=== PATIENT | female | born 1975 | race Caucasian/White ===

== ENCOUNTER 2024-04-27 11:28 | Emergency (ER) | payer OTHER, SELFPAY ==
--- OUTSIDE RECORDS SUMMARY | 2024-04-27 11:30 | XMS_ITS | Continuity of Care Document ---
Author Name NwHIN User [facility] Address Unknown Organization Unknown Address Unknown Encounters FILTER APPLIED:Only known Encounters with Admission Date within the last 5 years Encounter Location Admission Discharge Billing Code List Of First Job Ideas Lia ryan [facility]
[2024-04-27 11:37] VITALS: BP 112/70; PULSE 91; RESP 18; TEMP 36.3; O2SAT 98; BMI 23.6
--- NOTE | 2024-04-27 11:51 | ED.BACK ---
HPI - Back Pain/Injury General Time Seen by Provider: 11:51 Date Seen: 04/27/24 Chief Complaint: Back Injury/Pain Stated Complaint: back pain since sunday Time Seen by Provider: 04/27/24 11:51 Source: patient, RN notes reviewed and old records reviewed Mode of arrival: ambulatory Limitations: no limitations History of Present Illness HPI Narrative: Antonia is a very a pleasant 49-year-old female with history of a depression anxiety, remote history of heavy alcohol use and sober for 6 years who comes to the emergency room for back and leg pain. 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 She states that that radiation has actually improved and has does not go past her ankle but her back pain is such that she is really struggling. She notes that she can only lay in 1 position in her bed otherwise pain is significant. She notes that sitting is probably the worst for her. She has not had loss of bowel or bladder control. She feels like her left leg is weak. However, she is able to move her toes without difficulty and she does not feel like she is dragging her leg. Pain radiates from the left side of her low back through her buttock and around to the front of her left tony. Movement greatly increases her discomfort. She has has not seen anybody for this injury and is not currently taking any narcotics. Denies a history of narcotic addiction. Related Data Home Medications ?Medication ?Instructions ?Recorded ?Confirmed bupropion HCl 100 mg tablet 100 mg PO DAILY 04/27/24 04/27/24 clonazepam 0.5 mg tablet 0.5 mg PO DAILY 04/27/24 04/27/24 seraquel 200 mg PO HS 04/27/24 04/27/24 trazodone 100 mg tablet 100 mg PO DAILY 04/27/24 04/27/24 veltrex PO DAILY 04/27/24 Previous Rx's ?Medication ?Instructions ?Recorded hydrocodone 5 mg-acetaminophen 325 1 tab PO Q6H PRN pain #10 tabs 04/27/24 mg tablet methylprednisolone 4 mg tablets in See Rx Instructions PO .COMPLEX 04/27/24 a dose pack (Medrol (Yang)) #21 ea Allergies Allergy/AdvReac Type Severity Reaction Status Date / Time No Known Drug Allergies Allergy Verified 04/27/24 11:43 Review of Systems Status of ROS: Reports: 10 or more systems reviewed and unremarkable except as noted in History and below Const: Denies: fever or chills ENMT: Denies: neck pain or nasal congestion Cardio: Denies: chest pain or shortness of breath with exertion Resp: Denies: shortness of breath GI: Denies: abdominal pain or vomiting Musculo: Denies: neck pain Psych: Reports: anxiety PFSH PFSH Social History Smoking Status: Never smoker Exam Narrative: Exam Narrative: Alert and oriented. Somewhat tremulous. EOM is full and pupils equal round reactive. Head is atraumatic. Heart with a regular rate and rhythm and lungs are clear bilaterally. Examination of the back shows tenderness on the left paraspinous musculature at approximately L follow are 5. There is another area of tenderness over the left posterior superior iliac spine and with palpation in the left buttock. Patient has appropriate strength in the left lower extremity. She is able to stand on her tiptoes able to stand on her heels although it greatly increases her discomfort. No unusual swelling or rashes noted. Patient was able to get up from sitting position to standing position. Const: Vital Signs, click to edit/add: Vital Signs - 24 hr 04/27/24 11:37 Temperature 97.4 F L Pulse Rate [Pulse Oximeter] 91 Respiratory Rate 18 Blood Pressure [Ri ght Upper Arm] 112/70 Pulse Oximetry 98 Oxygen Delivery Me thod Room Air Documenting provider has reviewed patient's vital signs: yes Course Course ED Course: Differential diagnosis includes but is not limited to radiculitis, radiculopathy, disc protrusion, muscle strain, compression fracture. No reports of any trauma to this area. However pain has now been intermittent and ongoing for 12 days. Will obtain lumbar spine x-ray, use morphine 8 mg and Toradol 30 mg IM for pain control. Will also start patient on prednisone for anti-inflammatory effect. Reevaluation(s) Reevaluation #1: Patient noted to be feeling much improved after medications. Vital Signs Vital signs: Initial Vital Signs Temperature 97.4 F L 04/27/24 11:37 Temperature Source Temporal Artery Scan 04/27/24 11:37 Pulse Rate 91 04/27/24 11:37 Respiratory Rate 18 04/27/24 11:37 Blood Pressure 112/70 04/27/24 11:37 Blood Pressure Mean 84 04/27/24 11:37 Blood Pressure Position Sitting 04/27/24 11:37 Pulse Oximetry 98 04/27/24 11:37 Oxygen Delivery Method Room Air 04/27/24 11:37 Vital Signs Temperature 97.4 F L 04/27/24 11:37 Pulse Rate 91 04/27/24 11:37 Respiratory Rate 18 04/27/24 11:37 Blood Pressure 112/70 04/27/24 11:37 Pulse Oximetry 98 04/27/24 11:37 Oxygen Delivery Method Room Air 04/27/24 11:37 Temperature 97.4 F L 04/27/24 11:37 Pulse Rate 91 04/27/24 11:37 Respiratory Rate 18 04/27/24 11:37 Blood Pressure 112/70 04/27/24 11:37 Pulse Oximetry 98 04/27/24 11:37 Oxygen Delivery Method Room Air 04/27/24 11:37 Medications Administered Medications: Discontinued Medications Generic Name Dose Route Start Last Admin Trade Name Ebenezerq PRN Reason Stop Dose Admin Ketorolac Tromethamine 30 mg 04/27/24 12:08 04/27/24 12:17 Ketorolac 30 Mg/Ml Inj IM 04/27/24 12:09 30 mg ONCE ONE Administration Morphine Sulfate 8 mg 04/27/24 12:08 04/27/24 12:17 Morphine 4 Mg/Ml Inj IM 04/27/24 12:09 8 mg ONCE ONE Administration Prednisone 60 mg 04/27/24 12:08 04/27/24 12:46 Prednisone 20 Mg Tablet PO 04/27/24 12:09 60 mg ONCE ONE Administration MDM - Back Pain/Injury MDM Narrative Medical decision making narrative: 1. Low back pain with radiculitis-patient noted to have reassuring x-ray and improvement with medications. She received Toradol 30 mg IM, morphine 8 mg IM as well as prednisone 60 mg p.o.. She will be discharged home. She may use ibuprofen as needed for discomfort. For pain not relieved by ibuprofen I have given her 4 tablets of [place] 5/325 1-2 q.6 hours p.r.n. out of our [facility] meds machine. A further 10 tablets was sent to the pharmacy. Patient is to follow up with her primary MD. If she has persistent symptoms she may need MRI and/or injection. If her symptoms are improving but still present I would suggest physical therapy for strengthening of the lower back. Recommend ice and light activity. 2. Disposition-home at this time. Return for worsening symptoms especially loss of bowel or bladder control, worsening pain, weakness in the left lower extremity and as needed. Imaging Data Lumbar spine x-ray: Attestation: I have reviewed the pertinent imaging results. My impression: I do not note any acute fractures or other abnormality Radiologist's impression: The lumbar vertebral body heights are grossly maintained in satisfactory alignment with no evidence of displaced fracture. There is mild degenerative disc height loss and marginal osteophyte formation at the L2-L3, L3-L4 and L5-S1 levels. There is moderate facet arthrosis. The soft tissues are unremarkable. Impression: Mild early degenerative changes of the lumbar spine without evidence of displaced fracture. Discharge Plan Discharge Clinical Impression: Radiculitis Back pain Qualifiers: Back pain location: low back pain Chronicity: unspecified Back pain laterality: left Sciatica presence: without sciatica Qualified Code(s): M54.50 - Low back pain, unspecified Patient Disposition: Home, Self-Care Condition: Improved Additional Instructions: Continue steroids tomorrow-Medrol Dosepak will be sent to your pharmacy. Ibuprofen as needed for discomfort. I will provide you with a few tablets of Vicodin which is a combination medicine of hydrocodone on narcotic and Tylenol. Please use the sparingly. This was given through our [facility] meds machine. Do not use alcohol or drive with this medication as it is sedating. Do not combine with any other sedating or sleeping medications. Would recommend starting a stool softener as this has a tendency to cause constipation. 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 Follow-up with your primary MD for recheck. If you have ongoing pain you may need MRI. If pain is improving you may need physical therapy to strength in the low back. Return to the emergency room for loss of bowel or bladder control, increasing weakness and as needed. Prescriptions: New methylprednisolone [Medrol (Yang)] 4 mg tablets,dose pack See Rx Instructions .ROUTE .COMPLEX Qty: 21 0RF Rx Instructions: for 6 days hydrocodone-acetaminophen 5-325 mg tablet 1 tab PO Q6H PRN (Reason: pain) Qty: 10 0RF Rx Instructions: 1-2 tablets every 6 hours as needed for discomfort. No Action bupropion HCl 100 mg tablet 100 mg PO DAILY seraquel 200 mg PO HS trazodone 100 mg tablet 100 mg PO DAILY veltrex PO DAILY clonazepam 0.5 mg tablet 0.5 mg PO DAILY Follow Up/Referrals: Provider,Not a Local [Primary Care Provider] - Stand Alone Forms: [facility] Info Instructions
--- NOTE | 2024-04-27 12:08 | CRLHL7_ITS ---
For Patients: As a result of the Cures Act, medical imaging exams and procedure reports are released immediately into your electronic medical record. You may view this report before your referring provider. If you have questions, please contact your health care provider. Indication: L4 radiculitis Comparison: None available. Technique: AP and lateral views lumbar spine were obtained. Findings: The lumbar vertebral body heights are grossly maintained in satisfactory alignment with no evidence of displaced fracture. There is mild degenerative disc height loss and marginal osteophyte formation at the L2-L3, L3-L4 and L5-S1 levels. There is moderate facet arthrosis. The soft tissues are unremarkable. Impression: Mild early degenerative changes of the lumbar spine without evidence of displaced fracture. Dictated by Michael Ponce MD @ 04/27/2024 2:07:19 PM (Electronically Signed)
[2024-04-27] MEDS: MORPHINE 4 MG/ML INJ 8 MG IM (12:17)
[2024-04-27] MEDS: KETOROLAC 30 MG/ML inj IM (12:17)
--- OUTSIDE RECORDS SUMMARY | 2024-04-27 12:25 | XMS_ITS | Continuity of Care Document ---
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
--- OUTSIDE RECORDS SUMMARY | 2024-04-27 12:25 | XMS_ITS | Clinical Summary ---
Author Organization [facility] Address [address] [place] [id number] Care Team Providers Care Image Consultant Name Role Phone Marah Bean MD Primary Care Provider [phone] Allergies Active Allergy Reactions Criticality Noted Date Comments Erythromycin Difficulty breathing Medium 02/09/2012 Had upper resp infection at the time Medications norgestimate-eth inyl estradiol (SPRINTEC, 28,) 0.25-35 mg-mcg Oral Tab Take 1 Tab by mouth Once Daily. Active escitalopram (LEXAPRO) 10 mg Oral Tab Take 10 mg by mouth Once Daily. Active CLONAZEPAM ORAL Take 0.5 Tabs by mouth as needed. Active HYDROcodone 5 mg-acetaminophen 325 mg (NORCO) 5-325 mg Oral Tab Take 1-2 Tabs by mouth every 4 (four) hours as needed for Pain (pain). 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 Oxygen Saturation 98% 02/22/2012 4:00 PM 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 Inhaled Oxygen Concentration - - Weight 76.9 kg (169 lb 9 oz) 02/22/2012 12:25 PM 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 Height 175.3 cm (5' 9) 02/22/2012 12:25 PM 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 Body Mass Index 25.04 02/22/2012 12:25 PM 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 Plan of Treatment Health Maintenance Due Date Last Done Comments Colonoscopy 1975 Hepatitis C Screening 1975 Lipid Screening 1975 Mammogram Screening 1975 Pap Smear 1975 Anxiety Screening (CHAPARRO-2) 1976 Depression Assessment (PHQ-2) 1976 Adult Tetanus Booster 02/15/2022 02/16/2012 , 04/03/2003, 04/03/2003 COVID-19 Vaccine (2023- season) 2023 Influenza Vaccine (#1) 2023 7, 01/17/2016, 12/30/2015, Additional history exists RSV Vaccines (1 - 1-dose 75+ series) 2050 Pneumococcal <65 Aged Out No longer e ligible based on patient's age to complete this topic Insurance NON CONTRACT GENERIC [employer] [id number] Care Teams Image Consultant Relationship Specialty Start Date End Date Marah Bean MD PCP - General 02/19/12
--- OUTSIDE RECORDS SUMMARY | 2024-04-27 12:25 | XMS_ITS | Clinical Summary ---
Author Organization [facility] Address [address] [place] [id number] Care Team Providers Care Bed Worker Name Role Phone Minnie Berry NP Unavailable [phone] Rafy Andrade MD Unavailable [phone] Perfecto Jain APRN FINISHED GARMENT INSPECTOR Unavailable [phone] Gavi Vega MD Unavailable + Laura Chong REFORMATORY ATTENDANT FINISHED GARMENT INSPECTOR Primary Care Prov ider Laura Chong APRN FINISHED GARMENT INSPECTOR Unavailable + Dat Zepeda MD Unavailable [phone] Radha Jeter MD Unavailable Michael Martines MD Unavailable Allergies Active Allergy Reactions Criticality Noted Date Comments Erythromycin Difficulty breathing 02/05/2007 Lamotrigine Rash Low 01/08/2017 Lurasidone Hcl 03/09/2020 Medications Multiple Vitamin (MULTI-VITAMIN) per tablet Take 1 tablet by mouth daily. Active CALCIUM-MAGNESI UM-VITAMIN D PO Take 1 tablet by mouth daily. Active B Complex TABS Take 1 tablet by mouth daily. Active clonazePAM (KLONOPIN) 0.5 MG tablet Take 0.5 mg by mouth 2 times daily as needed Active traZODone (DESYREL) 100 MG tablet 1 Active chlorhexidine (HIBICLENS) 4 % liquidIndicatio ns:Folliculitis Lather onto chest, back, and shoulders in shower and let rinse after 1 minute at least twice weekly. 118 mL 11 3 Active Additional Information Patient not taking.Reported on 08/29/2023 clindamycin (CLEOCIN T) 1 % external lotionIndicatio ns:Folliculitis Apply once daily to chest, back, and shoulders after showering 120 mL 11 3 Active Additional Information Patient not taking.Reported on 08/29/2023 apremilast (OTEZLA) 30 MG tabletIndicatio ns:Psoriasis vulgaris Take 1 tablet (30 mg) by mouth 2 times daily 60 tablet 11 3 Active buPROPion (WELLBUTRIN XL) 150 MG 24 hr tablet Take 150 mg by mouth every morning 3 Active QUEtiapine (SEROQUEL) 200 MG tablet Take 200 mg by mouth at bedtime 3 Active Apremilast (OTEZLA) 10 & 20 & 30 MG TBPKIndications :Psoriasis vulgaris Take 1 tablet in the morning on day 1, then take 1 tablet every 12 hours on day 2 through 14, according to the instructions on the packet. 55 each 4 Active apremilast (OTEZLA) 30 MG tabletIndicatio ns:Psoriasis vulgaris Take 1 tablet (30 mg) by mouth 2 times daily. 60 tablet 1 4 Active valACYclovir (VALTREX) 500 MG tabletIndicatio ns:Herpes simplex virus infection Take 1 tablet (500 mg) by mouth daily. 90 tablet 3 4 Active triamcinolone (KENALOG) 0.1 % external creamIndication s:Rash and nonspecific skin eruption APPLY TOPICALLY TO THE AFFECTED AREA OF RASH ON BACK OF NECK TWICE DAILY 45 g 1 4 Active fluocinolone (SYNALAR) 0.01 % solutionIndicat ions:Sebopsoria sis Apply 5-10 drops to posterior scalp at nighttime before bed as needed for rash 60 mL 1 4 Active ketoconazole (NIZORAL) 2 % external shampooIndicati ons:Sebopsorias is Lather onto the scalp in the shower and let sit for 2-3 minutes before rinsing at least 2x weekly 120 mL 11 4 Active Active Problems Problem Noted Date Diagnosed Date History of alcohol abuse 05/25/2021 Overview (05/25/2021): Sober since 2018. Acne rosacea 12/20/2018 Recurrent major depressive disorder, in partial remission 01/04/2017 Major depressive disorder, recurrent episode, mo derate 03/14/2016 CARDIOVASCULAR SCREENING; LDL GOAL LESS THAN 160 09/24/2009 Generalized anxiety disorder 02/24/2009 Overview (11/07/2016): Patient is followed by KAYLIE WINKLER for ongoing prescription of medicine. Med: Clonazepam Maximum use per month: 60 Expected duration: until she is able to establish care with psychiatry. Has needs assessment with [facility] October 2016 Narcotic agreement on file: NO Clinic visit recommended: Q 3-6 months Encounter for other general counseling or advice on contraception 03/23/2008 Overview (02/15/2015): Diagnosis updated by automated process. Provider to review and confirm. Essentail/Resting Tremor 07/16/2007 Generalized hyperhidrosis 09/01/2005 Resolved Problems Problem Noted Date Diagnosed Date Resolved Date Alcohol dependence 03/09/2020 2 Alcohol withdrawal 01/04/2017 2 Health [facility] 12/09/2014 10/01/2023 Overview (12/09/2014): *See Letters for [facility] Care Plan: My Access Plan Encounter for other general counseling or advice on contraception 01/23/2007 03/23/2008 Overview (02/15/2015): Diagnosis updated by automated process. Provider to review and confirm. Depressive disorder, not elsewhere classified 05/15/19 06 02/24/2009 Encounters Date Type Department Care Team Description 03/14/2024 MyC Medical Advice [facility] Internal Medicine [address] [id number] Valerie Montelongo from Last 3 Months Immunizations Name Administration Dates Next Due COVID-19 Bivalent 18+ (Moderna) 12/30/2021 COVID-19 MONOVALENT 12+ (Pfizer) 01/13/2021,04/16,04/14/2020 Flu, Unspecified 12/30/2015 HEPA 10/05/2003,04/07/2003 HepB 10/05/2003,05/21/2003,04/03/2003 Influenza (IIV3) PF 01/23/2019, 6,02/16/2012,2009 Influenza (prior to 2023) 02/16/2012,02/08/2011, 03/28/2010 Influenza Vaccine >6 months,quad, PF ,12/30/2021,01/04/2021,2019,02/14/2018,01/05/2017,01/14/2014 Influenza,INJ,MDCK,PF,Quad >6mo(Flucelvax) 01/23/2019 TD,PF 7+ (Tenivac) 04/03/2003 TDAP (Adacel,Boostrix) 04/17/2022 TDAP Vaccine (Boostrix) 02/16/2012 Family History Medical History Relation Comments Diabetes Brother 1 prediabetic Anxiety Disorder Brother 3 Depression Brother 3 Hypertension Brother 3 Anxiety Disorder Brother 4 on and off Depression Brother 4 on and off Diabetes Brother 4 pre-diabetic Hypertension Brother 4 currently contro lled Obesity Brother 4 Obesity Brother 5 dieting; not imp roving much Anxiety Disorder Father controlled Depression Father controlled Hypertension Father on medication Obesity Father improving with e xercise Substance Abuse Father Alcoholic; sober several years C.A.D. Maternal Grandfather Cancer Maternal Grandmother pancreas ca ncer Other Cancer Maternal Grandmother Pancreatic - Anxiety Disorder Mother still uncontrol led Depression Mother still uncontroll ed Anxiety Disorder Other aunt - now cont rolled Glaucoma No family hx of Macular Degeneration No family hx of Relation Status Comments Brother 1 Alive Brother 2 Alive Brother 3 Brother 4 Brother 5 Father Alive Maternal Grandfather Maternal Grandmother Mother Alive Other Paternal Grandfather Alive Paternal Grandmother Sister Alive Social History Tobacco Use Types Packs/Day Years Used Date Smoking Tobacco: Never Smokeless Tobacco: Never Tobacco Cessation:Counseling Given: Not Answered Alcohol Use Standard Drinks/Week Comments Not Currently 0 (1 standard drink = 0.6 oz pur e alcohol) sober since 2018 Social Connection and Isolation Panel [NHANES] A nswer Date Recorded Frequency of Communication with Friends and Fami ly Not on file 08/29/2023 How often do you get together with friends or re latives? Once a week 08/29/2023 Attends [employer] Services Not on file 08/28 Active Member of Clubs or Organizations Not on f ile 08/29/2023 Attends Club or Organization Meetings Not on isaias e 08/29/2023 Marital Status Not on file 08/29/2023 PHQ-2 Answer Date Recorded PHQ-2 Score 2 08/29/2023 [facility] [place] [facility] - Occupational Stress Questionnaire Answer Date Recorded Do you feel stress - tense, restless, nervous, or anxious, or unable to sleep at night because your mind is troubled all the time - these days? To some extent 08/29/2023 Exercise Vital Sign Answer Date Recorde d On average, how many days pe r week do you engage in moderate to strenuous exercise (like a brisk walk)? 3 days 08/29/2023 On average, how many minutes do you engage in exercise at this level? 30 min 08/29/2023 Adolescent Education Answer Date Record ed Getting School Help Needed Not on file 01/16 Food Insecurity Answer Date Recorded Within the past 12 months, d id you worry that your food would run out before you got money to buy more? No 08/29/2023 Within the past 12 months, d id the food you bought just not last and you didn t have money to get more? No 08/29/2023 Housing Stability Answer Date Recorded Do you have housing? (Peeweein g is defined as stable permanent housing and does not include staying ouside in a car, in a tent, in an abandoned building, in an overnight half-way, or couch-surfing.) Yes 08/29/2023 Are you worried about losing your housing? No 08/29/2023 Financial Resource Strain Answer Date R ecorded Within the past 12 months, h ave you or your family members you live with been unable to get utilities (heat, electricity) when it was really needed? No 08/29/2023 Transportation Needs Answer Date Record ed Within the past 12 months, h as lack of transportation kept you from medical appointments, getting your medicines, non-medical meetings or appointments, work, or from getting things that you need? No 08/29/2023 Interpersonal Safety Answer Date Record ed Do you feel physically and e motionally safe where you currently live? Yes 08/29/2023 Within the past 12 months, h ave you been hit, slapped, kicked or otherwise physically hurt by someone? No 08/29/2023 Within the past 12 months, h ave you been humiliated or emotionally abused in other ways by your partner or ex-partner? No 08/29/2023 Comments No Sex and Gender Information Value Date Recorded Sex Assigned at Female 03/08/2020 10:03 AM HOSPICE REGISTERED NURSE Legal Sex Female 3:03 AM HOSPICE REGISTERED NURSE Gender Identity Female 03/08/2020 10:03 AM HOSPICE REGISTERED NURSE Sexual Orientation Choose not to disclose 2019 10:03 AM HOSPICE REGISTERED NURSE Last Filed Vital Signs Vital Sign Reading Time Taken Comments Blood Pressure 108/65 08/29/2023 5:59 PM CDT Pulse 93 08/29/2023 5:59 PM CDT Temperature 36.7 C (98 F) 09/26/2022 9:35 AM CDT Respiratory Rate 16 08/29/2023 5:59 PM CDT Oxygen Saturation 97% 08/29/2023 5:59 PM CDT Inhaled Oxygen Concentration - - Weight 77.4 kg (170 lb 11.2 oz) 08/29/2023 5:59 PM CDT Height 175.3 cm (5' 9) 08/29/2023 5:59 PM CDT Body Mass Index 25.21 08/29/2023 5:59 PM CDT Plan of Treatment Health Maintenance Due Date Last Done Comments ANNUAL REVIEW OF HM ORDERS 1975 CT COLONOGRAPHY 1975 FIT 1975 FLEX SIG 1975 sDNA (Cologuard) 1975 ZOSTER IMMUNIZATION (1 of 2) 1994 COVID-19 Vaccine ( season) 2023 01/17/2023, 12/30/2021, 01/13/2021, Additional history exists INFLUENZA VACCINE (#1) 2023 , 12/30/2021, 01/04/2021, Additional history exists YEARLY PREVENTIVE VISIT 08/28/2024 08/29/19 24, 05/31/2022, 05/25/2021, Additional history exists HPV TEST 01/07/2025 01/08/2020, 03/11/2018 PAP 01/07/2025 01/08/2020, 02/15, 03/11/2018, Additional history exists MAMMO SCREENING 04/12/2025 04/12/2023, 03/17, 03/30/2021, Additional history exists LIPID 05/27/2026 05/27/2021, 12/16, 09/25/2019, Additional history exists GLUCOSE 08/29/2026 08/30/2023, 09/14, 09/05/2022, Additional history exists ADVANCE CARE PLANNING 08/28/2028 08/29/2023 COLONOSCOPY 05/17/2030 05/17/2020 COLORECTAL CANCER SCREENING 05/17/2030 DTAP/TDAP/TD IMMUNIZATION (3 - Td or Tdap) 04/17/2032 04/17/2022, 02/16/2012, 04/03/2003 RSV VACCINE (1 - 1-dose 75+ series) 2050 HEPATITIS B IMMUNIZATION Completed 004, 05/21/2003, 04/03/2003 HIV SCREENING Completed 05/28/2020, 10/15, 03/21/2016 HEPATITIS C SCREENING Completed 05/27/2021 HPV IMMUNIZATION Aged Out No longer e ligible based on patient's age to complete this topic MENINGITIS IMMUNIZATION Aged Out No l onger eligible based on patient's age to complete this topic Pneumococcal Vaccine: Pediatrics (0 to 5 Years) and At-Risk Patients (6 to 49 Years) Discontinued RSV MONOCLONAL ANTIBODY Aged Out No l onger eligible based on patient's age to complete this topic Procedures Procedure Name Priority Date/Time Associated Diagnosis Comments COMPREHENSIVE METABOLIC PANEL Routine 08/30/2023 8:42 AM CDT Routine history and physical examination of adult MA SCREENING BILATERAL W/ RODRIGO Routine 04/12/2023 1:09 PM HOSPICE REGISTERED NURSE Visit for screening mammogram HEPATITIS C SCREEN REFLEX TO HCV RNA QUANT AND GENOTYPE Routine 05/27/2021 8:17 AM HOSPICE REGISTERED NURSE Routine history and physical examination of adult LIPID REFLEX TO DIRECT LDL PANEL Routine 05/27/2021 8:17 AM HOSPICE REGISTERED NURSE Lipid screening HIV ANTIGEN ANTIBODY COMBO Routine 05/28/2020 4:03 PM HOSPICE REGISTERED NURSE Routine screening for STI (sexually transmitted infection) COLONOSCOPY - HIM SCAN 12:00 AM HOSPICE REGISTERED NURSE HPV HIGH RISK TYPES DNA CERVICAL Routine 01/08/2020 5:30 PM CDT Influenza vaccine needed PAP IMAGED THIN LAYER SCREEN Routine 01/08/2020 5:28 PM CDT Screening for cervical cancer from Last 3 Months or Most Recently Relevant to Health Maintenance Results * Comprehensive metabolic panel (BMP + Alb, Alk Phos, ALT, AST, Total. Bili, TP) (08/30/2023 8:42 AM CDT) Sodium 137 135 - 145 mmol/L 08/30/2023 9:14 AM CDT [facility] Comment:Reference intervals for this test were updated on 01/09/2023 to more accurately reflect our healthy population. There may be differences in the flagging of prior results with similar values performed with this method. Interpretation of those prior results can be made in the context of the updated reference intervals. Potassium 4.2 3.4 - 5.3 mmol/L 08/30/2023 9:14 AM CDT [facility] Carbon Dioxide (CO2) 22 22 - 29 mmol/L 08/30/2023 9:14 AM CDT [facility] Anion Gap 10 7 - 15 mmol/L 08/30/2023 9:14 AM CDT [facility] Urea Nitrogen 9.7 6.0 - 20.0 mg/dL 08/30/2023 9:14 AM CDT [facility] Creatinine 0.82 0.51 - 0.95 mg/dL 08/30/2023 9:14 AM CDT [facility] GFR Estimate 88 >60 mL/min/1. 73m2 08/30/2023 9:14 AM T [facility] Calcium 8.7 8.6 - 10.0 mg/dL 08/30/2023 9:14 AM T [facility] Chloride 105 98 - 107 mmol/L 08/30/2023 9:14 AM T [facility] Glucose 95 70 - 99 mg/dL 08/30/2023 9:14 AM T [facility] Alkaline Phosphatase 60 40 - 150 U/L 08/30/2023 9:14 AM T [facility] - [facility] Comment:Reference intervals for this test were updated on 02/27/2023 to more accurately reflect our healthy population. There may be differences in the flagging of prior results with similar values performed with this method. Interpretation of those prior results can be made in the context of the updated reference intervals. AST 13 0 - 45 U/L 08/30/2023 9:14 AM T [facility] Comment:Reference intervals for this test were updated on 09/25/2022 to more accurately reflect our healthy population. There may be differences in the flagging of prior results with similar values performed with this method. Interpretation of those prior results can be made in the context of the updated reference intervals. ALT 5 0 - 50 U/L 08/30/2023 9:14 AM T [facility] Comment:Reference intervals for this test were updated on 09/25/2022 to more accurately reflect our healthy population. There may be differences in the flagging of prior results with similar values performed with this method. Interpretation of those prior results can be made in the context of the updated reference intervals. Protein Total 7.1 6.4 - 8.3 g/dL 08/30/2023 9:14 AM T [facility] Albumin 4.2 3.5 - 5.2 g/dL 08/30/2023 9:14 AM T [facility] Bilirubin Total 0.2 <=1.2 mg/dL 08/30/2023 9:14 AM [facility] - [facility] Blood BLOOD SPECIMEN / Unknown Venipuncture / Unknown 08/30/2023 8:42 AM CDT 08/30/2023 8:42 AM CDT Laura Chong APRN, CNP LAB - BLOOD ORDERA BLES Final Result [facility] - [address] 1st Floor [place] [address] * MA Screening Bilateral w/ Rodrigo (04/12/2023 1:09 PM HOSPICE REGISTERED NURSE) Anatomical Region Laterality Modality Breast Bilateral Mammography Impressions 04/12/2023 6:42 PM HOSPICE REGISTERED NURSE IMPRESSION: ACR BI-RADS Category 1: Negative RECOMMENDED FOLLOW-UP: Annual routine screening mammogram The results and recommendations of this examination will be communicated to the patient. I have personally reviewed the examination and initial interpretation and I agree with the findings. Hailey Larry MD Narrative 04/12/2023 6:42 PM HOSPICE REGISTERED NURSE BILATERAL FULL FIELD DIGITAL SCREENING MAMMOGRAM WITH TOMOSYNTHESIS Performed on: 04/12/23 Compared to: 04/11/2022, 03/30/2021, 02/26/2020, and 01/23/2012 Technique: This study was evaluated with the assistance of Computer-Aided Detection. Breast Tomosynthesis was used in interpretation. Findings: The breasts are extremely dense, which lowers the sensitivity of mammography. There is no radiographic evidence of malignancy. Laura Chong APRN, CNP IMG MAMMOGRAPHY OR DERABLES Final Result * HCV Screen with Reflex (05/27/2021 8:17 AM HOSPICE REGISTERED NURSE) Hepatitis C Antibody Nonreactive Nonreactive 05/27/2021 2:46 PM HOSPICE REGISTERED NURSE [facility]PROT/EN DO Blood STRUCTURE OF RIGHT UPPER LIMB / Unknown Venipuncture / Unknown 05/27/2021 8:17 AM HOSPICE REGISTERED NURSE 05/27/2021 8:17 AM HOSPICE REGISTERED NURSE Narrative [facility] CORE/PROT/ENDO - 05/27/2021 2:46 PM HOSPICE REGISTERED NURSE Assay performance characteristics have not been established for newborns, infants, and children. us Laura Chong APRN [facility] LAB - BLOOD ORDERA BLES Final Result [facility]PROT/ENDO [facility]/Prot/Endo [address] [facility], [address] [address], [facility] [phone] * (ABNORMAL) Lipid panel reflex to direct LDL Fasting (05/27/2021 8:17 AM HOSPICE REGISTERED NURSE) Cholesterol 171 <200 mg/dL 05/27/2021 8:45 AM [facility] Triglycerides 89 <150 mg/dL 05/27/2021 8:45 AM [facility] Direct Measure HDL 47(L) >=50 mg/dL 05/27/2021 8:45 AM [facility] LDL Cholesterol Calculated 106(H) <=100 mg/dL 05/27/2021 8:45 AM [facility] Non HDL Cholesterol 124 <130 mg/dL 05/27/2021 8:45 AM [facility] Patient Fasting > 8hrs? Unknown 05/27/2021 8:45 AM [facility] Blood STRUCTURE OF RIGHT UPPER LIMB / Unknown Venipuncture / Unknown 05/27/2021 8:17 AM HOSPICE REGISTERED NURSE 05/27/2021 8:17 AM HOSPICE REGISTERED NURSE Narrative [facility] - 05/27/2021 8:45 AM HOSPICE REGISTERED NURSE Cholesterol Desirable: <200 mg/dL Triglycerides Normal: Less than 150 mg/dL Borderline High: 150-199 mg/dL High: 200-499 mg/dL Very High: Greater than or equal to 500 mg/dL Direct Measure HDL Female: Greater than or equal to 50 mg/dL Male: Greater than or equal to 40 mg/dL LDL Cholesterol Desirable: <100mg/dL Above Desirable: 100-129 mg/dL Borderline High: 130-159 mg/dL High: 160-189 mg/dL Very High: >= 190 mg/dL Non HDL Cholesterol Desirable: 130 mg/dL Above Desirable: 130-159 mg/dL Borderline High: 160-189 mg/dL High: 190-219 mg/dL Very High: Greater than or equal to 220 mg/dL us Laura Chong APRN, CNP LAB - BLOOD ORDERA BLES Final Result [facility] [address] [place] [address] * HIV Antigen Antibody Combo (05/28/2020 4:03 PM HOSPICE REGISTERED NURSE) HIV Antigen Antibody Combo Nonreactive NR^Nonrea ctive 05/30/2020 9:25 AM HOSPICE REGISTERED NURSE [facility] Comment:HIV-1 p24 Ag & HIV-1 /HIV-2 Ab Not Detected Blood specimen (specimen) 05/28/2020 4:03 PM HOSPICE REGISTERED NURSE 05/28/2020 4:05 PM HOSPICE REGISTERED NURSE us Laura Chong APRN [facility] LAB - BLOOD ORDERA BLES Final Result [facility] [address] [place] [address] * COLONOSCOPY - HIM SCAN (05/17/2020 12:00 AM HOSPICE REGISTERED NURSE) 05/17/2020 us Provider Outside PROCEDURES Final Result * HPV High Risk Types DNA Cervical (01/08/2020 5:30 PM CDT) HPV Source SurePath 01/12/2020 11:11 AM CDT [facility] HPV 16 DNA Negative NEG^Nega tive 01/14/2020 11:03 AM CDT [facility] HPV 18 DNA Negative NEG^Nega tive 01/14/2020 11:03 AM CDT [facility] Other HR HPV Negative NEG^Nega tive 01/14/2020 11:03 AM CDT [facility] Final Diagnosis This patient's sample is negative for HPV DNA. 01/14/2020 11:03 AM CDT [facility] Comment: This test was developed and its performance characteristics determined by the [facility], Molecular Diagnostics Laboratory. It has not been cleared or approved by the FDA. The laboratory is regulated under CLIA as qualified to perform high-complexity testing. This test is used for clinical purposes. It should not be regarded as investigational or for research. (Note) METHODOLOGY: The Konstantin paige 4800 system uses automated extraction, simultaneous amplification of HPV (L1 region) and beta-globin, followed by real time detection of fluorescent labeled HPV and beta globin using specific oligonucleotide probes . The test specifically identifies types HPV 16 DNA and HPV 18 DNA while concurrently detecting the rest of the high risk types (31, 33, 35, 39, 45, 51, 52, 56, 58, 59, 66 or 68). COMMENTS: This test is not intended for use as a screening device for women under age 30 with normal cervical cytology. Results should be correlated with cytologic and histologic findings. Close clinical followup is recommended. Specimen Description Cervical Cells 01/12/2020 11:11 AM CDT [facility] 01/08/2020 5:30 PM CDT 01/08/2020 6:01 PM CDT us Perfecto Jain REFORMATORY ATTENDANT FINISHED GARMENT INSPECTOR LAB - BLOOD ORDERABLE S Final Result [facility] [address] [place] [address] * Pap imaged thin layer screen with HPV - recommended age 30 - 65 years (select HPV order below) (01/08/2020 5:28 PM CDT) PAP NIL DEL Razo Report Patient Name: ZEYNEP ALVARADO MR#: [id number] Specimen #: [id number] Collected: 01/08/2020 Received: 01/09/2020 Reported: 01/11/2020 13:56 Ordering Phy(s): PERFECTO JAIN For improved result formatting, select 'View Enhanced Report Format' under Linked Documents section. SPECIMEN/STAIN PROCESS: Pap imaged thin layer prep screening (Surepath, FocalPoint with guided screening) Pap-Cyto x 1, HPV ordered x 1 SOURCE: Cervical, endocervical Pap imaged thin layer prep screening (Surepath, FocalPoint with guided screening) SPECIMEN ADEQUACY: Satisfactory for evaluation. -Transformation zone component absent. CYTOLOGIC INTERPRETATION: Negative for intraepithelial lesion or malignancy Electronically signed out by: CYNTHIA Mariee (ASCP) CLINICAL HISTORY: Perimenopausal, A previous normal pap Date of Last Pap: 12/07/14, Papanicolaou Test Limitations: Cervical cytology is a screening test with limited sensitivity; regular screening is critical for cancer prevention; Pap tests are primarily effective for the diagnosis/preventi on of squamous cell carcinoma, not adenocarcinomas or other cancers. The technical component of this testing was completed at the [facility], with the professional component performed at the [facility], [address] [place] [phone] ([phone]) COLLECTION SITE: Client: [facility] Location: [facility] (B) [facility] Cytologic material (specimen) 01/08/2020 5:28 PM CDT 01/09/2020 8:58 AM CDT Perfecto Jain APRN FINISHED GARMENT INSPECTOR LAB - OPTIME CLINICAL SPECIMEN Final Result COPATH from Last 3 Months or Most Recently Relevant to Health Maintenance Insurance MEDICA CHOICE MEDICA CHOICE Care Teams Bed Worker Relationship Specialty Start Date End Date Laura Chong APRN CNP [address] [place] [id number] PCP - General Internal Medicine 05/28/20 Minnie Berry NP Nurse Practitioner Family Practice 06/25/19 Rafy Andrade MD [address] [facility] [address] [place] [address] Resident Primary Care - CC 06/25/19 Perfecto Jain APRN FINISHED GARMENT INSPECTOR [address] [facility] [address] [place] [address] Nurse Practitioner Nurse Practitioner 06/25/19 Gavi Vega MD [address] [place] [address] MD Ophthalmology 03/03/20 Laura Chong APRN FINISHED GARMENT INSPECTOR [address] [place] [address] Assigned PCP 06/27/20 Dat Zepeda MD [facility] [address] [facility] [address] [place] [address] Assigned Surgical Provider 06/24/22 Radha Jeter MD [address] [facility] [address] [place] [address] Dermatology 08/30/23 Michael Martines MD [address], [place] [address] Dermatology 11/22/23
--- OUTSIDE RECORDS SUMMARY | 2024-04-27 12:25 | XMS_ITS | Referral Summary ---
Author Organization [facility] Address [address] [place] [address] Care Team Providers Care Well Tester Name Role Phone Marah Bean MD Primary Care Provider [phone] Allergies Active Allergy Reactions Criticality Noted Date [...] Comments Blood Pressure 136/86 02/22/2012 4:00 PM NUCLEAR FUELS RECLAMATION ENGINEER Pulse 80 02/22/2012 4:00 PM NUCLEAR FUELS RECLAMATION ENGINEER Temperature 36.3 C (97.4 F) 02/22/2012 2:35 PM NUCLEAR FUELS RECLAMATION ENGINEER Respiratory Rate 16 02/22/2012 4:00 PM NUCLEAR FUELS RECLAMATION ENGINEER Oxygen Saturation 98% 02/22/2012 4:00 PM NUCLEAR FUELS RECLAMATION ENGINEER Inhaled Oxygen Concentration - - Weight 76.9 kg (169 lb 9 oz) 02/22/2012 12:25 PM NUCLEAR FUELS RECLAMATION ENGINEER Height 175.3 cm (5' 9) 02/22/2012 12:25 PM NUCLEAR FUELS RECLAMATION ENGINEER Body Mass Index 25.04 02/22/2012 12:25 PM NUCLEAR FUELS RECLAMATION ENGINEER Plan of Treatment Not on file Insurance NON CONTRACT GENERIC Care Teams Well Tester Relationship Specialty Start Date End Date Marah Bean MD PCP - General 02/19/12
--- OUTSIDE RECORDS SUMMARY | 2024-04-27 12:25 | XMS_ITS | Referral Summary ---
Author Organization [facility] Address [address] [place] [address] Care Team Providers Care Vibration Analyst Name Role Phone Minnie Berry NP Unavailable [phone] Rafy Andrade MD Unavailable [phone] Perfecto Jain APRN ASSISTANT OCEANOGRAPHER Unavailable [phone] Gavi Vega MD Unavailable + Laura Chong APRN ASSISTANT OCEANOGRAPHER Primary Care Prov ider Laura Chong APRN ASSISTANT OCEANOGRAPHER Unavailable + Dat Zepeda MD Unavailable [phone] Radha Jeter MD Unavailable Michael Martines MD Unavailable Encounters Date Type Department Care Team Description 03/14/2024 [facility] Internal Medicine [address] [place] [address] Valerie Montelongo from Last 3 Months Allergies Active Allergy Reactions Criticality Noted Date [...] alcohol abuse 05/25/2021 Overview (05/25/2021): Sober since 2017. Acne rosacea 12/20/2018 Recurrent major depressive disorder, [...] care with psychiatry. Has needs assessment with [facility] October 2016 Narcotic agreement on file: NO Clinic visit recommended: Q 3-6 months Encounter for other general counseling or advice on contraception 03/23/2008 Overview (02/15/2015): Diagnosis updated by automated process. Provider to review and confirm. Essentail/Resting Tremor 07/16/2007 Generalized hyperhidrosis 09/01/2005 Resolved Problems Problem Noted Date Diagnosed Date Resolved Date Alcohol dependence 03/09/2020 2 Alcohol withdrawal 01/04/2017 2 Health Fpc 12/09/2014 10/01/2023 Overview (12/09/2014): *See Letters for [facility] Care Plan: My Access Plan Encounter for other general counseling or advice on contraception 01/23/2007 03/23/2008 Overview (02/15/2015): Diagnosis updated by automated process. Provider to review and confirm. Depressive disorder, not elsewhere classified 05/15/19 06 02/24/2009 Immunizations Name Administration Dates Next Due COVID-19 Bivalent 18+ (Moderna) 12/30/2021 COVID-19 MONOVALENT 12+ (Pfizer) 01/13/2021,04/16,04/14/2020 Flu, Unspecified 12/30/2015 HEPA 10/05/2003,04/07/2003 HepB 10/05/2003,05/21/2003,04/03/2003 Influenza (IIV3) PF 01/23/2019, 6,02/16/2012,2009 Influenza (prior to 2023) 02/16/2012,02/08/2011, 03/28/2010 Influenza Vaccine >6 months,quad, PF ,12/30/2021,01/04/2021,2019,02/14/2018,01/05/2017,01/14/2014 Influenza,INJ,MDCK,PF,Quad >6mo(Flucelvax) 01/23/2019 TD,PF 7+ (Tenivac) 04/03/2003 TDAP (Adacel,Boostrix) 04/17/2022 TDAP Vaccine (Boostrix) 02/16/2012 Social History Tobacco Use Types Packs/Day Years [...] re latives? Once a week 08/29/2023 Attends [employer] Services Not on file 08/28 Active Member of Clubs or Organizations Not on f ile 08/29/2023 Attends Club or Organization Meetings Not on isaias e 08/29/2023 Marital Status Not on file 08/29/2023 PHQ-2 Answer Date Recorded PHQ-2 Score 2 08/29/2023 [facility] - Occupational Stress [...] Answer Date Recorded Do you have housing? (Joslyn hale is defined as stable permanent housing and does not include staying ouside in a car, in a tent, in an abandoned building, in an overnight long-term, or couch-surfing.) Yes 08/29/2023 Are you worried [...] Sex Assigned at Female 03/08/2020 10:03 AM POURING CRANE OPERATOR Legal Sex Female 3:03 AM POURING CRANE OPERATOR Gender Identity Female 03/08/2020 10:03 AM POURING CRANE OPERATOR Sexual Orientation Choose not to disclose 2019 10:03 AM POURING CRANE OPERATOR Last Filed Vital Signs Vital Sign Reading [...] 08/29/2023 5:59 PM CDT Plan of Treatment Not on file Procedures Procedure Name Priority Date/Time Associated Diagnosis Comments COMPREHENSIVE METABOLIC PANEL Routine 08/30/2023 8:42 AM CDT Routine history and physical examination of adult MA SCREENING BILATERAL W/ RODRIGO Routine 04/12/2023 1:09 PM POURING CRANE OPERATOR Visit for screening mammogram HEPATITIS C SCREEN REFLEX TO HCV RNA QUANT AND GENOTYPE Routine 05/27/2021 8:17 AM POURING CRANE OPERATOR Routine history and physical examination of adult LIPID REFLEX TO DIRECT LDL PANEL Routine 05/27/2021 8:17 AM POURING CRANE OPERATOR Lipid screening HIV ANTIGEN ANTIBODY COMBO Routine 05/28/2020 4:03 PM POURING CRANE OPERATOR Routine screening for STI (sexually transmitted infection) COLONOSCOPY - HIM SCAN 12:00 AM POURING CRANE OPERATOR HPV HIGH RISK TYPES DNA CERVICAL Routine 01/08/2020 5:30 PM CDT Influenza vaccine needed PAP IMAGED THIN LAYER SCREEN Routine 01/08/2020 5:28 PM CDT Screening for cervical cancer from Last 3 Months or Most Recently Relevant to Health Maintenance Results * Comprehensive metabolic panel (BMP + Alb, Alk Phos, ALT, AST, Total. Bili, TP) (08/30/2023 8:42 AM CDT) [facility] Sodium 137 135 - 145 mmol/L 08/30/2023 9:14 AM CDT [facility] Comment:Reference intervals for this test were updated on 01/09/2023 to more accurately reflect our healthy population. There may be differences in the flagging of prior results with similar values performed with this method. Interpretation of those prior results can be made in the context of the updated reference intervals. Potassium 4.2 3.4 - 5.3 mmol/L 08/30/2023 9:14 AM CDT [facility] Carbon Dioxide (CO2) 22 22 - 29 mmol/L 08/30/2023 9:14 AM CDT [facility] Anion Gap 10 7 - 15 mmol/L 08/30/2023 9:14 AM CDT [facility] Urea Nitrogen 9.7 6.0 - 20.0 mg/dL 08/30/2023 9:14 AM CDT [facility] Creatinine 0.82 0.51 - 0.95 mg/dL 08/30/2023 9:14 AM CDT [facility] GFR Estimate 88 >60 mL/min/1. 73m2 08/30/2023 9:14 AM CDT [facility] Calcium 8.7 8.6 - 10.0 mg/dL 08/30/2023 9:14 AM CDT [facility] Chloride 105 98 - 107 mmol/L 08/30/2023 9:14 AM CDT [facility] Glucose 95 70 - 99 mg/dL 08/30/2023 9:14 AM CDT [facility] Alkaline Phosphatase 60 40 - 150 U/L 08/30/2023 9:14 AM CDT [facility] Comment:Reference intervals for this test were updated on 02/27/2023 to more accurately reflect our healthy population. There may be differences in the flagging of prior results with similar values performed with this method. Interpretation of those prior results can be made in the context of the updated reference intervals. AST 13 0 - 45 U/L 08/30/2023 9:14 AM CDT [facility] Comment:Reference intervals for this test were updated on 09/25/2022 to more accurately reflect our healthy population. There may be differences in the flagging of prior results with similar values performed with this method. Interpretation of those prior results can be made in the context of the updated reference intervals. ALT 5 0 - 50 U/L 08/30/2023 9:14 AM CDT [facility] Comment:Reference intervals for this test were updated on 09/25/2022 to more accurately reflect our healthy population. There may be differences in the flagging of prior results with similar values performed with this method. Interpretation of those prior results can be made in the context of the updated reference intervals. Protein Total 7.1 6.4 - 8.3 g/dL 08/30/2023 9:14 AM CDT [facility] Albumin 4.2 3.5 - 5.2 g/dL 08/30/2023 9:14 AM CDT [facility] Bilirubin Total 0.2 <=1.2 mg/dL 08/30/2023 9:14 AM CDT [facility] Blood BLOOD SPECIMEN / Unknown Venipuncture / Unknown 08/30/2023 8:42 AM CDT 08/30/2023 8:42 AM CDT Laura Chong APRN [facility] LAB - BLOOD ORDERA BLES Final Result [facility] [address] 1st [place] [address] * MA Screening Bilateral w/ Rodrigo (04/12/2023 1:09 PM POURING CRANE OPERATOR) Anatomical Region Laterality Modality Breast Bilateral Mammography Impressions 04/12/2023 6:42 PM POURING CRANE OPERATOR IMPRESSION: ACR BI-RADS Category 1: Negative RECOMMENDED FOLLOW-UP: Annual routine screening mammogram The results and recommendations of this examination will be communicated to the patient. I have personally reviewed the examination and initial interpretation and I agree with the findings. Hailey Larry MD Narrative 04/12/2023 6:42 PM POURING CRANE OPERATOR BILATERAL FULL FIELD DIGITAL SCREENING MAMMOGRAM WITH [...] HCV Screen with Reflex (05/27/2021 8:17 AM POURING CRANE OPERATOR) Hepatitis C Antibody Nonreactive Nonreactive 05/27/2021 2:46 PM POURING CRANE OPERATOR [facility]EN DO Blood STRUCTURE OF RIGHT UPPER LIMB / Unknown Venipuncture / Unknown 05/27/2021 8:17 AM POURING CRANE OPERATOR 05/27/2021 8:17 AM POURING CRANE OPERATOR Narrative [facility]PROT/ENDO - 05/27/2021 2:46 PM POURING CRANE OPERATOR Assay performance characteristics have not been established for newborns, infants, and children. Laura Chong APRN, CNP LAB - BLOOD ORDERA BLES Final Result [facility]ENDO [facility]/Prot/Endo [address] [facility], [address], [place] [address], [facility] [phone] * (ABNORMAL) Lipid panel reflex to direct LDL Fasting (05/27/2021 8:17 AM POURING CRANE OPERATOR) Cholesterol 171 <200 mg/dL 05/27/2021 8:45 AM POURING CRANE OPERATOR [facility] Triglycerides 89 <150 mg/dL 05/27/2021 8:45 AM POURING CRANE OPERATOR [facility] Direct Measure HDL 47(L) >=50 mg/dL 05/27/2021 8:45 AM POURING CRANE OPERATOR [facility] LDL Cholesterol Calculated 106(H) <=100 mg/dL 05/27/2021 8:45 AM POURING CRANE OPERATOR [facility] Non HDL Cholesterol 124 <130 mg/dL 05/27/2021 8:45 AM POURING CRANE OPERATOR [facility] Patient Fasting > 8hrs? Unknown 05/27/2021 8:45 AM POURING CRANE OPERATOR [facility] Blood STRUCTURE OF RIGHT UPPER LIMB / Unknown Venipuncture / Unknown 05/27/2021 8:17 AM POURING CRANE OPERATOR 05/27/2021 8:17 AM POURING CRANE OPERATOR Narrative [facility] - 05/27/2021 8:45 AM POURING CRANE OPERATOR Cholesterol Desirable: <200 mg/dL Triglycerides Normal: Less [...] LAB - BLOOD ORDERA BLES Final Result [facility] [address] 1st [place] [address] * HIV Antigen Antibody Combo (05/28/2020 4:03 PM POURING CRANE OPERATOR) HIV Antigen Antibody Combo Nonreactive NR^Nonrea ctive 05/30/2020 9:25 AM POURING CRANE OPERATOR [facility] Comment:HIV-1 p24 Ag & HIV-1 /HIV-2 Ab Not Detected Blood specimen (specimen) 05/28/2020 4:03 PM POURING CRANE OPERATOR 05/28/2020 4:05 PM POURING CRANE OPERATOR us Laura Chong APRN, CNP LAB - BLOOD ORDERA BLES Final Result [facility] [address] [place] [address] * COLONOSCOPY - HIM SCAN (05/17/2020 12:00 AM POURING CRANE OPERATOR) 05/17/2020 us Provider Outside PROCEDURES Final Result * HPV High Risk Types DNA Cervical (01/08/2020 5:30 PM CDT) HPV Source [facility] 01/12/2020 11:11 AM CDT [facility] HPV 16 DNA Negative NEG^Nega tive 01/14/2020 11:03 AM CDT [facility] HPV 18 DNA Negative NEG^Nega tive 01/14/2020 11:03 AM CDT [facility] Other HR HPV Negative NEG^Nega tive 01/14/2020 11:03 AM CDT [facility] Final Diagnosis This patient's sample is negative for HPV DNA. 01/14/2020 11:03 AM CDT [facility] Comment: This test was developed and its performance characteristics determined by the [facility]. It has not been [...] Description Cervical Cells 01/12/2020 11:11 AM CDT [facility] 01/08/2020 5:30 PM CDT 01/08/2020 6:01 PM CDT us Perfecto Jain CASING FLUID TENDER ASSISTANT OCEANOGRAPHER LAB - BLOOD ORDERABLE S Final Result [address] [address] * Pap imaged thin layer screen with HPV - recommended age 30 - 65 years (select HPV order below) (01/08/2020 5:28 PM CDT) PAP NIL DEL Razo Report Patient Name: ZEYNEP ALVARADO MR#: [id number] Specimen #: [id number] Collected: 01/08/2020 Received: 01/09/2020 Reported: 01/11/2020 13:56 [...] [facility], with the professional component performed at the [facility] [employer] [facility], [address] [place] [phone] ([phone]) COLLECTION SITE: Client: [facility] Location: [facility] (B) [facility] Cytologic material (specimen) 01/08/2020 5:28 PM CDT 01/09/2020 8:58 AM CDT Perfecto Jain CASING FLUID TENDER ASSISTANT OCEANOGRAPHER LAB - OPTIME CLINICAL SPECIMEN Final Result COPATH from Last 3 Months or Most Recently Relevant to Health Maintenance Insurance MEDICA CHOICE MEDICA CHOICE Care Teams Vibration Analyst Relationship Specialty Start Date End Date Laura Chong APRN ASSISTANT OCEANOGRAPHER [address] [place] [id number] PCP - General Internal Medicine 05/28/20 Minnie Berry NP Nurse Practitioner Family Practice 06/25/19 Rafy Andrade MD [address] [facility] [address] [place], [place] [address] Resident Primary Care - CC 06/25/19 Perfecto Jain APRN ASSISTANT OCEANOGRAPHER [address] [facility] [address] [place] [address] Nurse Practitioner Nurse Practitioner 06/25/19 Gavi Vega MD [address] [place] [address] Ophthalmology 03/03/20 Laura Chong APRN ASSISTANT OCEANOGRAPHER [address] [place] [address] Assigned PCP 06/27/20 Dat Zepeda MD [facility] [address] [address] Assigned Surgical Provider 06/24/22 Radha Jeter MD [address] [place] [place] [address] Dermatology 08/30/23 Michael Martines MD [address] [place] [address] Dermatology 11/22/23
--- OUTSIDE RECORDS SUMMARY | 2024-04-27 12:25 | XMS_ITS | Clinical Summary ---
Author Organization [employer] [facility] Address [place], [place] [address] Care Team Providers Care Boss Miner Name Role Phone [facility] New Primary C are Provider Unavailable Allergies Active Allergy Reactions Criticality Noted Date Comments Erythromycin Shortness Of Breath 10/29/2017 Lamotrigine Rash Low 01/08/2017 Medications predniSONE (DELTASONE) 20 mg tabletIndicatio ns:Dermatitis Take 1 tablet by mouth once daily with a meal. 5 tablet 9 Active triamcinolone (ARISTOCORT; KENALOG) 0.1 % creamIndication s:Dermatitis Apply topically to affected area(s) 3 times daily. 1 Tube 9 Active hydrOXYzine HCl (ATARAX) 25 mg tabletIndicatio ns:Dermatitis Take 1 tablet by mouth every 6 hours if needed for Itching. 20 tablet 9 Active Family History Medical History Relation Name Comments No Known Problems Father No Known Problems Mother Relation Name Status Comments Father Mother Social History Tobacco Use Types Packs/Day Years Used Date Smoking Tobacco: Never Smokeless Tobacco: Never Comments Unknown Sex and Gender Information Value Date Recorded Sex Assigned at Not on file Legal Sex Female 3:26 PM CDT Gender Identity Not on file Sexual Orientation Not on file Obstetrics History Last Filed Vital Signs Vital Sign Reading Time Taken Comments Blood Pressure 108/63 05/22/2018 3:18 PM CIGARETTE CARTON SEALER Pulse 84 05/22/2018 3:18 PM CIGARETTE CARTON SEALER Temperature 36.8 C (98.2 F) 05/22/2018 3:18 PM CIGARETTE CARTON SEALER Respiratory Rate 18 05/22/2018 3:18 PM CIGARETTE CARTON SEALER Oxygen Saturation 97% 05/22/2018 3:18 PM CIGARETTE CARTON SEALER Inhaled Oxygen Concentration - - Weight 70.3 kg (155 lb) 05/22/2018 3:18 PM CIGARETTE CARTON SEALER Height 175.3 cm (5' 9) 05/22/2018 3:18 PM CIGARETTE CARTON SEALER Body Mass Index 22.89 05/22/2018 3:18 PM CIGARETTE CARTON SEALER Plan of Treatment Health Maintenance Due Date Last Done Comments Tdap 1986 Depression screening for age 12+ 1987 HIV for age 15-65 1990 BMI (ht and wt on same day) for age 18+ 1993 Hepatitis C screening for ag e 18-79 1993 Tetanus booster 1995 Pap test for age 21-65 1996 Colonoscopy through age 75 2020 Lipids for age 45-75 2020 Mammogram for age 45-75 2020 COVID-19 vaccine series (2023- season) 2023 04/14/2020 Influenza for age 9-49 12/16/2023 Pneumococcal series for age 6-49 Aged Out No longer eligible based on patient's age to complete this topic Insurance [place] [address] [place] [address] Care Teams Boss Miner Relationship Specialty Start Date End Date Roberto Quarles [facility] PCP - General 10/29/17
--- OUTSIDE RECORDS SUMMARY | 2024-04-27 12:26 | XMS_ITS | Encounter Summary ---
Author Organization [facility] Address [address] [place] [address] Care Team Providers Care Fws Faculty Assistant Name Role Phone Maegan Izaguirre PA-C Primary Care Provider + Maegan Izaguirre PA-C Unavailable [phone] Maegan Izaguirre PA-C Unavailable [phone] Minnie Berry NP Unavailable [phone] Rafy Andrade MD Unavailable [phone] Mary Jain APRN CHIEF OF VITAL STATISTICS Unavailable AnthonyJennifer dial DO Unavailable Rafy Andrade MD Unavailable [phone] Mary Jain APRN, CNP Primary Care Provide r Mary Jain APRN CHIEF OF VITAL STATISTICS Unavailable Gavi Vega MD Unavailable + Gavi Vega MD Unavailable + Laura Chong APRN, CNP Primary Care Prov ider Laura Chong APRN CHIEF OF VITAL STATISTICS Unavailable + Castillo Laura Hansen APRN CHIEF OF VITAL STATISTICS Unavailable + Rogelio CramerM Unavailable + Dat Zepeda MD Unavailable + Dat Zepeda MD Unavailable + Radha Jeter MD Unavailable Michael Martines MD Unavailable Encounter Details Date Type Department Care Team (Late st Contact Info) Description 09/28/2017 [facility] Medical Advice [address] [address] Ethan Shoemaker RN Social History Tobacco Use Types Packs/Day Years Used Date Smoking Tobacco: Never Smokeless Tobacco: Never Alcohol Use Standard Drinks/Week Comments Yes 0 (1 standard drink = 0.6 oz pure alcohol) I think I need to discontinue this again-was self-medicating Comments No Sex and Gender Information Value Date Recorded Sex Assigned at Female 03/08/2020 10:03 AM SPOUT TENDER Legal Sex Female 3:03 AM SPOUT TENDER Gender Identity Female 03/08/2020 10:03 AM SPOUT TENDER Sexual Orientation Choose not to disclose 2019 10:03 AM SPOUT TENDER documented as of this encounter Plan of Treatment Not on file documented as of this encounter Visit Diagnoses Not on filedocumented in this encounter Additional Health Concerns Assessment Noted Time PHQ-9 Depression Total Score: 18 018 7:08 AM CDT documented as of this encounter Care Teams Fws Faculty Assistant Relationship Specialty Start Date End Date Maegan Izaguirre PA-C PCP - General 02/24/09 08/13/18 Maegan Izaguirre PA-C [address] [address] PCP - Assigned PCP 10/18/09 06/18/18 Mary Jain APRN CHIEF OF VITAL STATISTICS [facility] [address] [place], [place] [phone] PCP - General Nurse Practitioner 08/14/18 05/27/20 Laura Chong APRN CHIEF OF VITAL STATISTICS [address] [place], [place] [phone] PCP - General Internal Medicine 05/28/20 Maegan Izaguirre PA-C [address] [phone] Assigned PCP 01/18/12 08/16/19 Minnie Berry NP [address] [phone] Nurse Practitioner Family Practice 06/25/19 Rafy Andrade MD [address] [place] [address] [address] [place] [address] Resident Primary Care - CC 06/25/19 Mary Jain APRN CHIEF OF VITAL STATISTICS [facility] [address] [place] [address] Nurse Practitioner Nurse Practitioner 06/25/19 Jennifer Soares DO [facility] [place] [address] Assigned PCP 08/17/19 10/04/19 Rafy Andrade MD 420 [facility] [address] [place] [address] Assigned PCP 10/05/19 01/17/20 Mary Jain SPECTROSCOPIST CHIEF OF VITAL STATISTICS [address] [facility] [address] [place] [address] Assigned PCP 01/18/20 05/29/20 Gavi Vega MD [address] [place] [address] Ophthalmology 03/03/20 Gavi Vega MD [address] [place] [address] Assigned Surgical Provider 03/10/20 06/23/22 Laura Chong APRN CHIEF OF VITAL STATISTICS [address] [place] [address] Assigned PCP 06/27/20 Laura Chong APRN CHIEF OF VITAL STATISTICS [address] [place] [address] Assigned PCP 05/30/20 06/26/20 Rogelio Cramer DPM [address] [place] [address] Assigned Musculoskeletal Provider 02/27/21 08/18/22 Dat Zepeda MD [facility] [address] [facility] [address] [place] [address] Dermatology 01/13/22 11/21/23 Dat Zepeda MD [facility] [address] [address] Assigned Surgical Provider 06/24/22 Radha Jeter MD [address] [place] [address] Dermatology 08/30/23 Michael Martines MD [address] [phone] Dermatology 11/22/23 documented as of this encounter
--- OUTSIDE RECORDS SUMMARY | 2024-04-27 12:26 | XMS_ITS | Encounter Summary ---
Author Organization [place] Address [address] [place] [address]. [place] [address] Care Team Providers Care Creative Recruiter Name Role Phone Jamal Minnie GAMBOA Unavailable [phone] Rafy Andrade MD Unavailable [phone] Mary Jain APRN AUTOMOBILE BRAKES BONDER Unavailable [phone] Gavi Vega MD Unavailable + Laura Chong STAND IN AUTOMOBILE BRAKES BONDER Primary Care Prov ider Laura Chong APRN AUTOMOBILE BRAKES BONDER Unavailable + Dat Zepeda MD Unavailable [phone] Dat eZpeda MD Unavailable [phone] Radha Jeter MD Unavailable Michael Martines MD Unavailable Encounter Details Date Type Department Care Team (Late st Contact Info) Description 08/31/2023 [facility] Internal Medicine [place] [id number] [facility] SE 4th [place] [address] Jeffery Montelongoview Social History Tobacco Use Types Packs/Day Years Used Date Smoking Tobacco: Never Smokeless Tobacco: Never Alcohol Use Standard Drinks/Week Comments Not Currently [...] Answer Date Recorded PHQ-2 Score 2 08/29/2023 [facility] [place] of Occupat ional Health - Occupational Stress [...] Answer Date Recorded Do you have housing? (Housin g is defined as stable permanent housing and does not include staying ouside in a car, in a tent, in an abandoned building, in an overnight mcfp, or couch-surfing.) Yes 08/29/2023 Are you worried [...] Sex Assigned at Female 03/08/2020 10:03 AM MEDICAL SUPPLY TECHNICIAN Legal Sex Female 3:03 AM MEDICAL SUPPLY TECHNICIAN Gender Identity Female 03/08/2020 10:03 AM MEDICAL SUPPLY TECHNICIAN Sexual Orientation Choose not to disclose 2019 10:03 AM MEDICAL SUPPLY TECHNICIAN documented as of this encounter Plan of Treatment Not on file documented as of this encounter Visit Diagnoses Not on filedocumented in this encounter Additional Health Concerns Assessment Noted Time PHQ-9 Depression Total Score: 5 08/29/19 24 3:03 PM CDT documented as of this encounter Care Teams Creative Recruiter Relationship Specialty Start Date End Date Laura Chong APRN AUTOMOBILE BRAKES BONDER [address] [place] [address] 387215 PCP - General Internal Medicine 05/28/20 Minnie Berry NP Nurse Practitioner Family Practice 06/25/19 Rafy Andrade MD 420 [facility] 284 [place], [place] 79[address] Resident Primary Care - CC 06/25/19 Mary Jain APRN AUTOMOBILE BRAKES BONDER 420 [facility] 741 [place], [place] [address] Nurse Practitioner Nurse Practitioner 06/25/19 Gavi Vega MD [address], [place] [address] Ophthalmology 03/03/20 Laura Chong APRN AUTOMOBILE BRAKES BONDER 909 [place], [place] 625325 Assigned PCP 06/27/20 Dat Zepeda MD [address] 577035 Dermatology 01/13/22 11/21/23 Dat Zepeda MD [address] [address] Assigned Surgical Provider 06/24/22 Radha Jeter MD [address] [place] [address] 693495 Dermatology 08/30/23 Michael Martines MD [address] 284890 Dermatology 11/22/23 documented as of this encounter
--- OUTSIDE RECORDS SUMMARY | 2024-04-27 12:26 | XMS_ITS | Encounter Summary ---
Author Organization [facility] Address [address] [place] [address] Care Team Providers Care System Specialist Name Role Phone Jamal Minnie GAMBOA Unavailable [phone] Rafy Andrade MD Unavailable [phone] Mary Jain SUPERVISOR FINISHING DEPARTMENT CASEWORKER INTAKE Unavailable Gavi Vega MD Unavailable + Gavi Vega MD Unavailable + Laura Chong SUPERVISOR FINISHING DEPARTMENT CASEWORKER INTAKE Primary Care Prov ider Laura Chong APRN CASEWORKER INTAKE Unavailable + Rogelio CramerM Unavailable + [phone] Dat Zepeda MD Unavailable + [phone] Dat Zepeda MD Unavailable [phone] Radha Jeter MD Unavailable Michael Martines MD Unavailable Reason for Visit * Reason Onset Date Comments *-*INCOMING RECORDS*-* 02/18/2021 Encounter Details Date Type Department Care Team (Late st Contact Info) Description 02/18/2021 PRE VISIT [facility] 909 [facility] 4th [place] [address] Rogelio Cramer, DPM 9 [place] [address] *-*INCOMING RECORDS*-* Social History Tobacco Use Types Packs/Day Years Used Date Smoking Tobacco: Never Smokeless Tobacco: Never Alcohol Use Standard Drinks/Week Comments Yes 0 (1 standard drink = 0.6 oz pure alcohol) I think I need to discontinue this again-was self-medicating PHQ-2 Answer Date Recorded PHQ-2 Score 4 06/26/2019 Comments No Sex and Gender Information Value Date Recorded Sex Assigned at Female 03/08/2020 10:03 AM BUCKET CHUCKER Legal Sex Female 3:03 AM BUCKET CHUCKER Gender Identity Female 03/08/2020 10:03 AM BUCKET CHUCKER Sexual Orientation Choose not to disclose 2019 10:03 AM BUCKET CHUCKER COVID-19 Exposure Response Date Recorded In the last month, have you been in contact with someone who was confirmed or suspected to have Coronavirus / COVID-19? No / Unsure 02/18/2021 2:08 PM CDT documented as of this encounter Miscellaneous Notes * Telephone Encounter - Sindi Benites CMA - 01/05/2021 12:20 PM CDT RECORDS RECEIVED FROM: Left foot pain /Laura Chong CASEWORKER INTAKE/ XR/ Pref 1/ ortho con DATE RECEIVED: Feb 18, 2021 NOTES STATUS DETAILS OFFICE NOTE from referring provider Internal Laura Chong APRN CNP XRAYS (IMAGES & REPORTS) Internal 12/24/20 documented in this encounter Plan of Treatment Not on file documented as of this encounter Visit Diagnoses Not on filedocumented in this encounter Additional Health Concerns Assessment Noted Time PHQ-9 Depression Total Score: 12 020 9:18 AM CDT documented as of this encounter Care Teams System Specialist Relationship Specialty Start Date End Date Laura Chong APRN CNP [address] [place] [address] PCP - General Internal Medicine 05/28/20 Minnie Berry NP Nurse Practitioner Family Practice 06/25/19 Rafy Andrade MD 420 [facility] 284 [place] [address] Resident Primary Care - CC 06/25/19 Mary Jain APRN CASEWORKER INTAKE [address] [place] [address] 741 [place] [address] Nurse Practitioner Nurse Practitioner 06/25/19 Gavi Vega MD [facility] [address], [place] [address] Ophthalmology 03/03/20 Gavi Vega MD [address] [place] [address] Assigned Surgical Provider 03/10/2002/05 Laura Chong APRN CASEWORKER INTAKE [address] [place] [address] Assigned PCP 06/27/20 Rogelio Cramer DPM [address] [place] [address] Assigned Musculoskeletal Provider 02/27/21 08/18/22 Dat Zepeda MD [address] [address] Dermatology 01/13/22 11/21/23 Dat Zepeda MD [address] [address] Assigned Surgical Provider 06/24/22 Radha Jeter MD [address] [place] [address] Dermatology 08/30/23 Michael Martines MD [address] [place] [address] Dermatology 11/22/23 documented as of this encounter
--- OUTSIDE RECORDS SUMMARY | 2024-04-27 12:26 | XMS_ITS | Encounter Summary ---
Author Organization [place] Address [address] [place] [address] Care Team Providers Care Digitizer Operator Name Role Phone Maegan Izaguirre PA-C Primary Care Provider + Maegan Izaguirre PA-C Unavailable Maegan Izaguirre PA-C Unavailable [phone] Minnie Berry NP Unavailable [phone] Rafy Andrade MD Unavailable [phone] Mary Jain APRN CALL CENTER SUPPORT CONSULTANT Unavailable AnthonyJennifer dial DO Unavailable Rafy Andrade MD Unavailable [phone] Mary Jain APRN, CNP Primary Care Provide r Mary Jain APRN CALL CENTER SUPPORT CONSULTANT Unavailable Gavi Vega MD Unavailable + Gavi Vega MD Unavailable + Laura Chong APRN, CNP Primary Care Prov ider Laura Chong APRN CALL CENTER SUPPORT CONSULTANT Unavailable + Castillo Laura Hansen APRN CALL CENTER SUPPORT CONSULTANT Unavailable + Rogelio CramerM Unavailable + Dat Zepeda MD Unavailable + Dat Zepeda MD Unavailable + Radha Jeter MD Unavailable Michael Martines MD Unavailable Encounter Details Date Type Department Care Team (Late st Contact Info) Description 08/03/2016 [facility] Medical Advice [address] [address] Mahi Cee RN Social History Tobacco Use Types Packs/Day Years Used Date Smoking Tobacco: Never Smokeless Tobacco: Never Alcohol Use Standard Drinks/Week Comments Yes 0 (1 standard drink = 0.6 oz pur e alcohol) Currently none Comments No Sex and Gender Information Value Date Recorded Sex Assigned at Female 03/08/2020 10:03 AM SINGER BACK TENDER Legal Sex Female 3:03 AM SINGER BACK TENDER Gender Identity Female 03/08/2020 10:03 AM SINGER BACK TENDER Sexual Orientation Choose not to disclose 2019 10:03 AM SINGER BACK TENDER documented as of this encounter Plan of Treatment Not on file documented as of this encounter Visit Diagnoses Not on filedocumented in this encounter Additional Health Concerns Assessment Noted Time PHQ-9 Depression Total Score: 7 05/19/19 17 7:18 AM SINGER BACK TENDER documented as of this encounter Care Teams Digitizer Operator Relationship Specialty Start Date End Date Maegan Izaguirre PA-C PCP - General 02/24/09 08/13/18 Maegan Izaguirre PA-C [address] [address] PCP - Assigned PCP 10/18/09 06/18/18 Mary Jain APRN CALL CENTER SUPPORT CONSULTANT 420 [facility] 741 [place] [address] PCP - General Nurse Practitioner 08/14/18 05/27/20 Laura Chong APRN CALL CENTER SUPPORT CONSULTANT 909 [place], [place] [address] PCP - General Internal Medicine 05/28/20 Maegan Izaguirre PA-C [address] [phone] Assigned PCP 01/18/12 08/16/19 Minnie Berry NP [address] [phone] Nurse Practitioner Family Practice 06/25/19 Rafy Andrade MD [address] [place] [address] Resident Primary Care - CC 06/25/19 Mary Jain APRN CALL CENTER SUPPORT CONSULTANT [address] [place] [address] 741 [place] [address] Nurse Practitioner Nurse Practitioner 06/25/19 Jennifer Soares DO [address] [place] [address] Assigned PCP 08/17/19 10/04/19 Rafy Andrade MD [address] [place] [address] 284 [place] [address] Assigned PCP 10/05/19 01/17/20 Mary Jain APRN CALL CENTER SUPPORT CONSULTANT [address] [place] [address] 741 [place] [address] Assigned PCP 01/18/20 05/29/20 Gavi Vega MD [address] [place] [address] Ophthalmology 03/03/20 Gavi Vega MD [address] [place] [address] Assigned Surgical Provider 03/10/20 06/23/22 Laura Chong APRN CALL CENTER SUPPORT CONSULTANT [address] [place] [address] Assigned PCP 06/27/20 Laura Chong APRN CALL CENTER SUPPORT CONSULTANT [address] [place] [address] Assigned PCP 05/30/20 06/26/20 Rogelio Cramer DPM [address] [place] [address] Assigned Musculoskeletal Provider 02/27/21 08/18/22 Dat Zepeda MD [facility] 516 [facility] 98 [place] [address] Dermatology 01/13/22 11/21/23 Dat Zepeda MD [facility] 516 [facility] 98 [place] [address] Assigned Surgical Provider 06/24/22 Radha Jeter MD [address] [place] [address] Dermatology 08/30/23 Michael Martines MD [address] [address] Dermatology 11/22/23 documented as of this encounter
--- OUTSIDE RECORDS SUMMARY | 2024-04-27 12:26 | XMS_ITS | Encounter Summary ---
Author Organization [place] Address [address] [place] [address] Care Team Providers Care Body Piercer Name Role Phone Jamal Minnie BEE Unavailable [phone] Rafy Andrade MD Unavailable [phone] Mary Jain APRN ENOLOGIST Unavailable Mary Jain APRN ENOLOGIST Primary Care Provide r Mary Jain APRN ENOLOGIST Unavailable Gavi Vega MD Unavailable + Gavi Vega MD Unavailable + Laura Chong APRN ENOLOGIST Primary Care Prov ider Laura Chong APRN ENOLOGIST Unavailable + Laura Chong APRN ENOLOGIST Unavailable + Rogelio Cramer DPM Unavailable [phone] Dat Zepeda MD Unavailable + Dat Zepeda MD Unavailable + Radha Jeter MD Unavailable Michael Martines MD Unavailable Encounter Details Date Type Department Care Team (Late st Contact Info) Description 04/07/2020 [facility] Advice Adult Call Center [address] [place] [phone] Sarita Roper Social History Tobacco Use Types Packs/Day Years Used Date Smoking Tobacco: Never Smokeless Tobacco: Never Alcohol Use Standard Drinks/Week Comments Yes 0 (1 standard drink = 0.6 oz pure alcohol) I think I need to discontinue this again-was self-medicating PHQ-2 Answer Date Recorded PHQ-2 Score 4 06/26/2019 Comments No Sex and Gender Information Value Date Recorded Sex Assigned at Female 03/08/2020 10:03 AM INSOLE TOE SNIPPING MACHINE OPERATOR Legal Sex Female 3:03 AM INSOLE TOE SNIPPING MACHINE OPERATOR Gender Identity Female 03/08/2020 10:03 AM INSOLE TOE SNIPPING MACHINE OPERATOR Sexual Orientation Choose not to disclose 2019 10:03 AM INSOLE TOE SNIPPING MACHINE OPERATOR COVID-19 Exposure Response Date Recorded In the last month, have you been in contact with someone who was confirmed or suspected to have Coronavirus / COVID-19? No / Unsure 03/31/2020 3:19 PM INSOLE TOE SNIPPING MACHINE OPERATOR documented as of this encounter Plan of Treatment Not on file documented as of this encounter Visit Diagnoses Not on filedocumented in this encounter Additional Health Concerns Assessment Noted Time PHQ-9 Depression Total Score: 12 020 9:18 AM CDT documented as of this encounter Care Teams Body Piercer Relationship Specialty Start Date End Date Mary Jain APRN ENOLOGIST [address] [place] [address] 741 [place] [address] PCP - General Nurse Practitioner 08/14/18 05/27/20 Laura Chong APRN ENOLOGIST [address] [place] [address] PCP - General Internal Medicine 05/28/20 Minnie Berry NP Nurse Practitioner Family Practice 06/25/19 Rafy Andrade MD 420 [facility] 284 [place], [place] [address] Resident Primary Care - CC 06/25/19 Mary Jain APRN ENOLOGIST [address] [place] [address] 741 [place], [place] 8[address] Nurse Practitioner Nurse Practitioner 06/25/19 Mary Jain APRN ENOLOGIST [address] [place] [address] 741 [place], [place] 9[address] Assigned PCP 01/18/20 05/29/20 Gavi Vega MD [facility] [address] [address] MD Ophthalmology 03/03/20 Gavi Vega MD [address] [place] [address] 657495 Assigned Surgical Provider 03/10/2002/05 Laura Chong APRN ENOLOGIST [address] [place] [address] Assigned PCP 06/27/20 Laura Chong APRN ENOLOGIST [address] [place] [address] Assigned PCP 05/30/20 06/26/20 Rogelio Cramer DPM [address] [place] [address] Assigned Musculoskeletal Provider 02/27/21 08/18/22 Dat Zepeda MD [address] [address] Dermatology 01/13/22 11/21/23 Dat Zepeda MD [address] [address] Assigned Surgical Provider 06/24/22 Radha Jeter MD [address] [place] [address] Dermatology 08/30/23 Michael Martines MD [address] [place] [address] Dermatology 11/22/23 documented as of this encounter
--- OUTSIDE RECORDS SUMMARY | 2024-04-27 12:26 | XMS_ITS | Encounter Summary ---
Author Organization [place] Address [address] [place] [address] Care Team Providers Care It Associate Name Role Phone Jamal Minnie GAMBOA Unavailable [phone] Rafy Andrade MD Unavailable [phone] Mary Jain APRN PMO CONSULTANT Unavailable [phone] Gavi Vega MD Unavailable + Gavi Vega MD Unavailable + Laura Chong HAUL CANE BRAKEMAN PMO CONSULTANT Primary Care Prov ider Laura Chong APRN PMO CONSULTANT Unavailable + Rogelio CramerM Unavailable + [phone] Dat Zepeda MD Unavailable + [phone] Dat Zepeda MD Unavailable + [phone] Radha Jeter MD Unavailable Michael Martines MD Unavailable Encounter Details Date Type Department Care Team (Late st Contact Info) Description 08/19/2020 [facility] Medical [facility] Eye [address] [phone] Gavi Vega MD 909 [place], [place] [phone] Social History Tobacco Use Types Packs/Day Years Used Date Smoking Tobacco: Never Smokeless Tobacco: Never Alcohol Use Standard Drinks/Week Comments Yes 0 (1 standard drink = 0.6 oz pure alcohol) I think I need to discontinue this again-was self-medicating PHQ-2 Answer Date Recorded PHQ-2 Score 4 06/26/2019 Comments No Sex and Gender Information Value Date Recorded Sex Assigned at Female 03/08/2020 10:03 AM BPM SOLUTION ARCHITECT Legal Sex Female 3:03 AM BPM SOLUTION ARCHITECT Gender Identity Female 03/08/2020 10:03 AM BPM SOLUTION ARCHITECT Sexual Orientation Choose not to disclose 2019 10:03 AM BPM SOLUTION ARCHITECT documented as of this encounter Plan of Treatment Not on file documented as of this encounter Visit Diagnoses Not on filedocumented in this encounter Additional Health Concerns Assessment Noted Time PHQ-9 Depression Total Score: 12 020 9:18 AM CDT documented as of this encounter Care Teams It Associate Relationship Specialty Start Date End Date Laura Chong APRN PMO CONSULTANT [address] [place] [address] PCP - General Internal Medicine 05/28/20 Minnie Berry NP Nurse Practitioner Family Practice 06/25/19 Rafy Andrade MD 420 [facility] 284 [place], [place] [address]385 Resident Primary Care - CC 06/25/19 Mary Jain APRN PMO CONSULTANT 420 [facility] 741 [place], [place] [address] Nurse Practitioner Nurse Practitioner 06/25/19 Gavi Vega MD [address], [place] [address] Ophthalmology 03/03/20 Gavi Vega MD [address] [place] [address] Assigned Surgical Provider 03/10/2002/05 Laura Chong APRN PMO CONSULTANT [address] [place] [address] 641335 Assigned PCP 06/27/20 Rogelio Cramer DPM [address] [place] [address] Assigned Musculoskeletal Provider 02/27/21 08/18/22 Dat Zepeda MD [address] [address] Dermatology 01/13/22 11/21/23 Dat Zepeda MD [address] [address] Assigned Surgical Provider 06/24/22 Radha Jeter MD [address] [place] [address] 694135 Dermatology 08/30/23 Michael Martines MD [address] 4833[address] Dermatology 11/22/23 documented as of this encounter
--- OUTSIDE RECORDS SUMMARY | 2024-04-27 12:26 | XMS_ITS | Encounter Summary ---
Author Organization [facility] Address [address] [place] [address] Care Team Providers Care Fire Production Operator Name Role Phone Jamal Minnie BEE Unavailable [phone] Rafy Andrade MD Unavailable [phone] Mary Jain APRN INSURANCE INSTRUCTOR Unavailable Mary Jain APRN INSURANCE INSTRUCTOR Primary Care Provide r Mary Jain APRN INSURANCE INSTRUCTOR Unavailable [phone] Gavi Vega MD Unavailable + Gavi Vega MD Unavailable + Laura Chong APRN INSURANCE INSTRUCTOR Primary Care Prov ider Laura Chong APRN INSURANCE INSTRUCTOR Unavailable + Laura Chong APRN INSURANCE INSTRUCTOR Unavailable + Rogelio Cramer DPM Unavailable +[phone] Dat Zepeda MD Unavailable + Dat Zepeda MD Unavailable + Radha Jeter MD Unavailable Michael Martines MD Unavailable Encounter Details Date Type Department Care Team (Late st Contact Info) Description 05/26/[address] [facility] Internal Medicine [address] 4th [place] [phone] Mary Jain APRN INSURANCE INSTRUCTOR [address] [place] [address] [facility] [address] [place] [address] Social History Tobacco Use Types Packs/Day Years Used Date Smoking Tobacco: Never Smokeless Tobacco: Never Alcohol Use Standard Drinks/Week Comments Yes 0 (1 standard drink = 0.6 oz pure alcohol) I think I need to discontinue this again-was self-medicating PHQ-2 Answer Date Recorded PHQ-2 Score 4 06/26/2019 Comments No Sex and Gender Information Value Date Recorded Sex Assigned at Female 03/08/2020 10:03 AM WIRE STRAIGHTENER Legal Sex Female 3:03 AM WIRE STRAIGHTENER Gender Identity Female 03/08/2020 10:03 AM WIRE STRAIGHTENER Sexual Orientation Choose not to disclose 2019 10:03 AM WIRE STRAIGHTENER COVID-19 Exposure Response Date Recorded In the last month, have you been in contact with someone who was confirmed or suspected to have Coronavirus / COVID-19? No / Unsure 05/28/2020 2:32 PM WIRE STRAIGHTENER documented as of this encounter Miscellaneous Notes * Telephone Encounter - Irasema Hansen - 05/28/2020 8:42 AM CST Ok for in person appt. Irasema Hansen, EMT at 8:43 AM on 05/28/2020. STRAIGHTENER documented in this encounter Plan of Treatment Not on file documented as of this encounter Visit Diagnoses Not on filedocumented in this encounter Additional Health Concerns Assessment Noted Time PHQ-9 Depression Total Score: 12 020 9:18 AM CDT documented as of this encounter Care Teams Fire Production Operator Relationship Specialty Start Date End Date Mary Jain APRN INSURANCE INSTRUCTOR 420 [facility] 741 [place] [address] PCP - General Nurse Practitioner 08/14/18 05/27/20 Laura Chong APRN INSURANCE INSTRUCTOR [address] [place] [address] PCP - General Internal Medicine 05/28/20 Minnie Berry NP Nurse Practitioner Family Practice 06/25/19 Rafy Andrade MD [address] [place] [address] 284 [place] [address] Resident Primary Care - CC 06/25/19 Mary Jain APRN INSURANCE INSTRUCTOR [address] [place] [address] 741 [place] [address] Nurse Practitioner Nurse Practitioner 06/25/19 Mary Jain APRN INSURANCE INSTRUCTOR [address] [place] [address] 741 [place] [address] Assigned PCP 01/18/20 05/29/[address] [facility] 24[place], [place] [address] Ophthalmology 03/03/20 Gavi Vega MD [address] [place] [address] Assigned Surgical Provider 03/10/2002/05 Laura Chong APRN INSURANCE INSTRUCTOR [address] [place] [address] Assigned PCP 06/27/20 Laura Chong APRN CNP [address] [place] [address] Assigned PCP 05/30/20 06/26/20 Rogelio Cramer DPM [address] [place] [address] Assigned Musculoskeletal Provider 02/27/21 08/18/22 Dat Zepeda MD [address] [address] Dermatology 01/13/22 11/21/23 Dat Zepeda MD [address] [address] Assigned Surgical Provider 06/24/22 Radha Jeter MD [address] [place] [address] 800985 Dermatology 08/30/23 Michael Martines MD [address] [address] Dermatology 11/22/23 documented as of this encounter
--- OUTSIDE RECORDS SUMMARY | 2024-04-27 12:26 | XMS_ITS | Encounter Summary ---
Author Organization [facility] Address [address] [place] [address] Care Team Providers Care Load Tester Name Role Phone Maegan Izaguirre PA-C Primary Care Provider + Maegan Izaguirre PA-C Unavailable [phone] Maegan Izaguirre PA-C Unavailable Minnie Berry NP Unavailable [phone] Rafy Andrade MD Unavailable [phone] Mary Jain APRN WATCH CRYSTAL CUTTER Unavailable AnthonyJennifer dial DO Unavailable Rafy Andrade MD Unavailable [phone] Mary Jain APRN, CNP Primary Care Provide r Mary Jain APRN WATCH CRYSTAL CUTTER Unavailable Gavi Vega MD Unavailable + Gavi Vega MD Unavailable + Laura Chong APRN, CNP Primary Care Prov ider Laura Chong APRN WATCH CRYSTAL CUTTER Unavailable + Laura Chong Jade CASANOVA WATCH CRYSTAL CUTTER Unavailable + Rogelio CramerM Unavailable + Dat Zepeda MD Unavailable + Dat Zepeda MD Unavailable + Radha Jeter MD Unavailable Michael Martines MD Unavailable Encounter Details Date Type Department Care Team (Late st Contact Info) Description 02/25/2017 [facility] [place] [address] [address] Maegan Izaguirre PA-C [address] [address] Social History Tobacco Use Types Packs/Day Years Used Date Smoking Tobacco: Never Smokeless Tobacco: Never Alcohol Use Standard Drinks/Week Comments Yes 0 (1 standard drink = 0.6 oz pure alcohol) I think I need to discontinue this again-was self-medicating Comments No Sex and Gender Information Value Date Recorded Sex Assigned at Female 03/08/2020 10:03 AM JACQUARD LOOM CARPET WEAVER Legal Sex Female 3:03 AM JACQUARD LOOM CARPET WEAVER Gender Identity Female 03/08/2020 10:03 AM JACQUARD LOOM CARPET WEAVER Sexual Orientation Choose not to disclose 2019 10:03 AM JACQUARD LOOM CARPET WEAVER documented as of this encounter Plan of Treatment Not on file documented as of this encounter Visit Diagnoses Not on filedocumented in this encounter Additional Health Concerns Assessment Noted Time PHQ-9 Depression Total Score: 20 017 7:04 AM CDT documented as of this encounter Care Teams Load Tester Relationship Specialty Start Date End Date Maegan Izaguirre PA-C PCP - General 02/24/09 08/13/18 Maegan Izaguirre PA-C [address] [address] PCP - Assigned PCP 10/18/09 06/18/18 Mary Jain APRN WATCH CRYSTAL CUTTER 420 [facility] 741 [place] [address] PCP - General Nurse Practitioner 08/14/18 05/27/20 Laura Chong APRN WATCH CRYSTAL CUTTER 909 [place], [place] [address] PCP - General Internal Medicine 05/28/20 Maegan Izaguirre PA-C [address] [address] Assigned PCP 01/18/12 08/16/19 Minnie Berry NP [address] [phone] Nurse Practitioner Family Practice 06/25/19 Rafy Andrade MD 420 [facility] 284 [place] [address] Resident Primary Care - CC 06/25/19 Mary Jain APRN WATCH CRYSTAL CUTTER 420 [facility] 741 [place] [address] Nurse Practitioner Nurse Practitioner 06/25/19 Jennifer Soares DO [address] [place] [address] Assigned PCP 08/17/19 10/04/19 Rafy Andrade MD [address] [place] [address] 284 [place] [address] Assigned PCP 10/05/19 01/17/20 Mary Jain APRN WATCH CRYSTAL CUTTER [address] [place] [address] 741 [place] [address] Assigned PCP 01/18/20 05/29/20 Gavi eVga MD [address] [place] [address] MD Ophthalmology 03/03/20 Gavi Vega MD [address] [place] [address] Assigned Surgical Provider 03/10/20 06/23/22 Laura Chong APRN WATCH CRYSTAL CUTTER [address] [place] [address] Assigned PCP 06/27/20 Laura Chong APRN WATCH CRYSTAL CUTTER [address] [place] [address] Assigned PCP 05/30/20 06/26/20 Rogelio Cramer DPM [address] [place] [address] Assigned Musculoskeletal Provider 02/27/21 08/18/22 Dat Zepeda MD [address] [address] Dermatology 01/13/22 11/21/23 Dat Zepeda MD [address] [address] Assigned Surgical Provider 06/24/22 Radha Jeter MD [address] [place] [address] Dermatology 08/30/23 Michael Martines MD [address] [place] [address] Dermatology 11/22/23 documented as of this encounter
--- OUTSIDE RECORDS SUMMARY | 2024-04-27 12:26 | XMS_ITS | Encounter Summary ---
Author Organization [facility] Address [address] [place] [address] Care Team Providers Care Real Estate Subagent Name Role Phone Minnie Berry NP Unavailable [phone] Rafy Andrade MD Unavailable [phone] Mary Jain APRN DIAZO TECHNICIAN Unavailable Gavi Vega MD Unavailable + Laura Chong APRN DIAZO TECHNICIAN Primary Care Prov ider Laura Chong APRN DIAZO TECHNICIAN Unavailable + Dat Zepeda MD Unavailable [phone] Radha Jeter MD Unavailable Michael Martines MD Unavailable Reason for Visit * Reason Onset Date Comments Medication Update 01/07/2024 Otezla 30mg Ta bs Encounter Details Date Type Department Care Team ([facility] st Contact Info) Description 01/07/2024 [facility] Internal Medicine [place] 909 [facility] 4th [place] [address] Laura Chong APRN [address] [address] Medication Update (Otezla 30mg Tabs ) Social History Tobacco Use Types Packs/Day Years [...] re latives? Once a week 08/29/2023 Attends Sikhism Services Not on file 08/28 Active Member of Clubs or Organizations Not on f ile 08/29/2023 Attends Club or Organization Meetings Not on isaias e 08/29/2023 Marital Status Not on file 08/29/2023 PHQ-2 Answer Date Recorded PHQ-2 Score 2 08/29/2023 [facility] of Occupat ional Health - Occupational Stress [...] Date Recorded Do you have housing? (Joslyn g is defined as stable permanent housing and does not include staying ouside in a car, in a tent, in an abandoned building, in an overnight usp, or couch-surfing.) Yes 08/29/2023 Are you worried [...] Sex Assigned at Female 03/08/2020 10:03 AM TRACK WATCHMAN Legal Sex Female 3:03 AM TRACK WATCHMAN Gender Identity Female 03/08/2020 10:03 AM TRACK WATCHMAN Sexual Orientation Choose not to disclose 2019 10:03 AM TRACK WATCHMAN documented as of this encounter Miscellaneous Notes * Telephone Encounter - Tamiko Goyal - 01/07/2024 9:58 AM CDT [facility] has been unable to reach this patient to refill their medication. According to our records, the patient is overdue to refill and adherence may be an issue at this point. Medication and strength: Otezla 30 mg Tabs Last fill date and day supply: 08/08/2023 30 day supply If the medication is on hold, been changed, discontinued, sent to a different pharmacy, or any other information is available, please reply or contact us at [phone]. Thank you, [facility] documented in this encounter Plan of Treatment Not on file documented as of this encounter Visit Diagnoses Not on filedocumented in this encounter Additional Health Concerns Assessment Noted Time PHQ-9 Depression Total Score: 5 08/29/19 24 3:03 PM CDT documented as of this encounter Care Teams Real Estate Subagent Relationship Specialty Start Date End Date Laura Chong APRN DIAZO TECHNICIAN 9 [place] [address] PCP - General Internal Medicine 05/28/20 Minnie Berry NP Nurse Practitioner Family Practice 06/25/19 Rafy Andrade MD [address] [place] [address] 284 [place], [place] [address] Resident Primary Care - CC 06/25/19 Mary Jain APRN DIAZO TECHNICIAN [address] [place] [address] 741 [place] [address] Nurse Practitioner Nurse Practitioner 06/25/19 Gavi Vega MD [address] [place] [address] Ophthalmology 03/03/20 Laura Chong APRN DIAZO TECHNICIAN [address] [place] [address] Assigned PCP 06/27/20 Dat Zepeda MD [facility] 98 [place], [place] [address] Assigned Surgical Provider 06/24/22 Radha Jeter MD 420 [facility] 98 [place] [address] Dermatology 08/30/23 Michael Martines MD [address] [place] [address] Dermatology 11/22/23 documented as of this encounter
--- OUTSIDE RECORDS SUMMARY | 2024-04-27 12:26 | XMS_ITS | Encounter Summary ---
Author Organization [facility] Address [address] [place] [address]. [place] [address] Care Team Providers Care Field Operations Farm Manager Name Role Phone Jamal Minnie GAMBOA Unavailable [phone] Rafy Andrade MD Unavailable [phone] Mary Jain APRN INSURANCE OFFICE SUPERVISOR Unavailable Gavi Vega MD Unavailable + Laura Chong TAPE RECORDER REPAIRER INSURANCE OFFICE SUPERVISOR Primary Care Prov ider Laura Chong APRN INSURANCE OFFICE SUPERVISOR Unavailable + Dat Zepeda MD Unavailable [phone] Dat Zepeda MD Unavailable [phone] Radha Jeter MD Unavailable Michael Martines MD Unavailable Encounter Details Date Type Department Care Team (Late st Contact Info) Description 09/18/2022 [facility] [place] Medical Advice [facility] [address] [place] [address] Sarita Oliver Social History Tobacco Use Types Packs/Day Years Used Date Smoking Tobacco: Never Smokeless Tobacco: Never Alcohol Use Standard Drinks/Week Comments Not Currently 0 (1 standard drink = 0.6 oz pur e alcohol) sober since 2018 PHQ-2 Answer Date Recorded PHQ-2 Score 4 06/26/2019 Comments No Sex and Gender Information Value Date Recorded Sex Assigned at Female 03/08/2020 10:03 AM SANFORIZING MACHINE OPERATOR Legal Sex Female 3:03 AM SANFORIZING MACHINE OPERATOR Gender Identity Female 03/08/2020 10:03 AM SANFORIZING MACHINE OPERATOR Sexual Orientation Choose not to disclose 2019 10:03 AM SANFORIZING MACHINE OPERATOR COVID-19 Exposure Response Date Recorded In the last 10 days, have yo u been in contact with someone who was confirmed or suspected to have Coronavirus/COVID-19? No / Unsure 09/07/2022 10:24 AM CDT documented as of this encounter Plan of Treatment Not on file documented as of this encounter Visit Diagnoses Not on filedocumented in this encounter Additional Health Concerns Assessment Noted Time PHQ-9 Depression Total Score: 12 020 9:18 AM CDT documented as of this encounter Care Teams Field Operations Farm Manager Relationship Specialty Start Date End Date Laura Chong APRN INSURANCE OFFICE SUPERVISOR [address] [place] [address]145 PCP - General Internal Medicine 05/28/20 Minnie Berry NP Nurse Practitioner Family Practice 06/25/19 Rafy Andrade MD 420 [facility] 284 [place], [place] [address] Resident Primary Care - CC 06/25/19 Mary Jain APRN INSURANCE OFFICE SUPERVISOR 420 [facility] 741 [place], [place] [phone] Nurse Practitioner Nurse Practitioner 06/25/19 Gavi Vega MD [address] [place] [address] Ophthalmology 03/03/20 Laura Chong APRN INSURANCE OFFICE SUPERVISOR [address] [place] [address] 9996[address] Assigned PCP 06/27/20 Dat Zepeda MD [address] [address] Dermatology 01/13/22 11/21/23 Dat Zepeda MD [address] [address] Assigned Surgical Provider 06/24/22 Radha Jeter MD [address] [place] [address] Dermatology 08/30/23 Michael Martines MD [address] [place] [address] 777880 Dermatology 11/22/23 documented as of this encounter
--- OUTSIDE RECORDS SUMMARY | 2024-04-27 12:26 | XMS_ITS | Encounter Summary ---
Author Organization [facility] Address [address] [place] [address]. [place] [address] Care Team Providers Care Tool Die Maker Name Role Phone Jamal Minnie GAMBOA Unavailable [phone] Rafy Andrade MD Unavailable [phone] Mary Jain APRN BACK DIGGER OPERATOR Unavailable [phone] Gavi Vega MD Unavailable + Laura Chong APRN BACK DIGGER OPERATOR Primary Care Prov ider Laura Chong APRN BACK DIGGER OPERATOR Unavailable + Dat Zepeda MD Unavailable [phone] Radha Jeter MD Unavailable Michael Martines MD Unavailable Encounter Details Date Type Department Care Team (Late st Contact Info) Description 03/14/[address] [facility] Internal Medicine [place] [id number] [facility] 4th [place] [address] Jeffery Montelongoview Social History Tobacco [...] re latives? Once a week 08/29/2023 Attends Anabaptism Services Not on file 08/28 Active Member of Clubs or Organizations Not on f ile 08/29/2023 Attends Club or Organization Meetings Not on isaias e 08/29/2023 Marital Status Not on file 08/29/2023 PHQ-2 Answer Date Recorded PHQ-2 Score 2 08/29/2023 [facility] of Occupat ional Health - Occupational Stress [...] in an abandoned building, in an overnight chcf, or couch-surfing.) Yes 08/29/2023 Are you worried [...] Sex Assigned at Female 03/08/2020 10:03 AM DOOR FITTER Legal Sex Female 3:03 AM DOOR FITTER Gender Identity Female 03/08/2020 10:03 AM DOOR FITTER Sexual Orientation Choose not to disclose 2019 10:03 AM DOOR FITTER documented as of this encounter Plan of Treatment Not on file documented as of this encounter Visit Diagnoses Not on filedocumented in this encounter Additional Health Concerns Assessment Noted Time PHQ-9 Depression Total Score: 5 08/29/19 24 3:03 PM CDT documented as of this encounter Care Teams Tool Die Maker Relationship Specialty Start Date End Date Laura Chong APRN BACK DIGGER OPERATOR 909 [place] [address] PCP - General Internal Medicine 05/28/20 Minnie Berry NP Nurse Practitioner Family Practice 06/25/19 Rafy Andrade MD 420 [facility] 284 [place], [place] [address] Resident Primary Care - CC 06/25/19 Mary Jain APRN BACK DIGGER OPERATOR 420 [facility] 741 [place], [place] 9[address] Nurse Practitioner Nurse Practitioner 06/25/19 Gavi Vega MD [address] [place] [address] Ophthalmology 03/03/20 Laura Chong APRN BACK DIGGER OPERATOR 909 [place], [place] [address]75 Assigned PCP 06/27/20 Dat Zepeda MD [facility] [address] [address] Assigned Surgical Provider 06/24/22 Radha Jeter MD [address] [address] Dermatology 08/30/23 Michael Martines MD [address], [place] [address] Dermatology 11/22/23 documented as of this encounter
--- OUTSIDE RECORDS SUMMARY | 2024-04-27 12:26 | XMS_ITS | Encounter Summary ---
Author Organization [facility] Address [address] [place] [address] Care Team Providers Care Bail Attacher Name Role Phone Maegan Izaguirre PA-C Primary Care Provider + Maegan Izaguirre PA-C Unavailable Maegan Izaguirre PA-C Unavailable [phone] Minnie Berry NP Unavailable [phone] Rafy Andrade MD Unavailable [phone] Mary Jain APRN DIESEL FITTER MECHANIC Unavailable [phone] AnthonyJennifer dial DO Unavailable Rafy Andrade MD Unavailable [phone] Mary Jain APRN, CNP Primary Care Provide r Mary Jain APRN DIESEL FITTER MECHANIC Unavailable Gavi Vega MD Unavailable + Gavi Vega MD Unavailable + Laura Chong APRN, CNP Primary Care Prov ider Laura Chong APRN DIESEL FITTER MECHANIC Unavailable + Laura Chong Jade CASANOVA DIESEL FITTER MECHANIC Unavailable + Kosta Crameron Aren DPM Unavailable + Dat Zepeda MD Unavailable + Dat Zepeda MD Unavailable + Radha Jeter MD Unavailable Michael Martines MD Unavailable Reason for Visit * Reason Onset Date Comments Rash 05/20/2016 MyChart Communication 05/20/2016 Encounter Details Date Type Department Care Team (Late st Contact Info) Description 05/20/2016 [facility] Medical [facility]ice [address] [address] Maegan Izaguirre PA-C [address] [address] Rash; MyChart Communication Social History Tobacco Use Types Packs/Day Years Used Date Smoking Tobacco: Never Smokeless Tobacco: Never Alcohol Use Standard Drinks/Week Comments Yes 0 (1 standard drink = 0.6 oz pur e alcohol) Currently none Comments No Sex and Gender Information Value Date Recorded Sex Assigned at Female 03/08/2020 10:03 AM DETECTIVE SUPERVISOR Legal Sex Female 3:03 AM DETECTIVE SUPERVISOR Gender Identity Female 03/08/2020 10:03 AM DETECTIVE SUPERVISOR Sexual Orientation Choose not to disclose 2019 10:03 AM DETECTIVE SUPERVISOR documented as of this encounter Miscellaneous Notes * Telephone Encounter - Mahi Cee RN - 05/22/2016 9:10 AM CST Will route to provider to advise. See message below. Per [employer] 7-14% of patients get a rash while taking lamictal. However she believes this is the result of dry skin and wearing a scarf. Shouldshe be seen? Or try some home care measures first (RN can advise on this)? Mahi Cee RN May 22, 2016 9:11 AM [facility] Triage [phone] CTIVE SUPERVISOR documented in this encounter Plan of Treatment Not on file documented as of this encounter Visit Diagnoses Not on filedocumented in this encounter Additional Health Concerns Assessment Noted Time PHQ-9 Depression Total Score: 7 05/19/19 17 7:18 AM DETECTIVE SUPERVISOR documented as of this encounter Care Teams Bail Attacher Relationship Specialty Start Date End Date Maegan Izaguirre PA-C PCP - General 02/24/09 08/13/18 Maegan Izaguirre PA-C [address] [phone] PCP - Assigned PCP 10/18/09 06/18/18 Mary Jain APRN DIESEL FITTER MECHANIC 420 [facility] 741 [place], [place] [address] PCP - General Nurse Practitioner 08/14/18 05/27/20 Laura Chong APRN DIESEL FITTER MECHANIC [address] [place] [address]38[address] PCP - General Internal Medicine 05/28/20 Maegan Izaguirre PA-C [address] [phone] Assigned PCP 01/18/12 08/16/19 Minnie Berry NP [place] [id number] [address] [phone] Nurse Practitioner Family Practice 06/25/19 Rafy Andrade MD [address] [place] [address] 284 [place] [address] Resident Primary Care - CC 06/25/19 Mary Jain APRN DIESEL FITTER MECHANIC [address] [place] [address] Nurse Practitioner Nurse Practitioner 06/25/19 Jennifer Soares DO [address] [place] [address] [id number] Assigned PCP 08/17/19 10/04/19 Rafy Andrade MD [address] [place] [address] Assigned PCP 10/05/19 01/17/20 Mary Jain APRN DIESEL FITTER MECHANIC [address] [place] [address] Assigned PCP 01/18/20 05/29/20 Gavi Vega MD [facility] [address], [place] [address] Ophthalmology 03/03/20 Gavi Vega MD [address] [place] [address] Assigned Surgical Provider 03/10/20 06/23/22 Laura Chong APRN DIESEL FITTER MECHANIC [address] [place] [address] Assigned PCP 06/27/20 Laura Chong APRN CNP 9 [place] [address] Assigned PCP 05/30/20 06/26/20 Rogelio Cramer DPM [address] [place] [address] Assigned Musculoskeletal Provider 02/27/21 08/18/22 Dat Zepeda MD [address] [address] Dermatology 01/13/22 11/21/23 Dat Zepeda MD [address] [address] Assigned Surgical Provider 06/24/22 Radha Jeter MD [address] [place] [address] Dermatology 08/30/23 Michael Martines MD [address] [place] [address] Dermatology 11/22/23 documented as of this encounter
--- OUTSIDE RECORDS SUMMARY | 2024-04-27 12:26 | XMS_ITS | Encounter Summary ---
Author Organization [facility] Address [address] [place] [address] Care Team Providers Care Belt Builder Name Role Phone Maegan Izaguirre PA-C Primary Care Provider + Maegan Izaguirre PA-C Unavailable [phone] Maegan Izaguirre PA-C Unavailable [phone] Minnie Berry NP Unavailable [phone] Rafy Andrade MD Unavailable [phone] Mary Jain APRN SUPERVISOR [address] Unavailable AnthonyJennifer dial DO Unavailable Rafy Andrade MD Unavailable [phone] Mary Jain APRN, CNP Primary Care Provide r Mary Jain APRN SUPERVISOR [address] Unavailable Gavi Vega MD Unavailable + Gavi Vega MD Unavailable + Laura Chong APRN, CNP Primary Care Prov ider Laura Chong APRN SUPERVISOR [address] Unavailable + Laura Chong Jade CASANOVA SUPERVISOR [address] Unavailable + Rogelio Cramer DPM Unavailable + Dat Zepeda MD Unavailable + Dat Zepeda MD Unavailable + Radha Jeter MD Unavailable Michael Martines MD Unavailable Reason for Visit * Reason Onset Date Comments MyChart Communication 03/21/2016 Cold Symptoms 03/21/2016 Encounter Details Date Type Department Care Team (Late st Contact Info) Description 03/21/2016 [facility] Medical Advice [address] [phone] Maegan Izaguirre PA-C [address] [address] MyChart Communication; Cold Symptoms Social History Tobacco Use Types Packs/Day Years Used Date Smoking Tobacco: Never Smokeless Tobacco: Never Alcohol Use Standard Drinks/Week Comments Yes 0 (1 standard drink = 0.6 oz pur e alcohol) 9 glasses of wine per week Comments No Sex and Gender Information Value Date Recorded Sex Assigned at Female 03/08/2020 10:03 AM SPORTS DEVELOPMENT OFFICER Legal Sex Female 3:03 AM SPORTS DEVELOPMENT OFFICER Gender Identity Female 03/08/2020 10:03 AM SPORTS DEVELOPMENT OFFICER Sexual Orientation Choose not to disclose 2019 10:03 AM SPORTS DEVELOPMENT OFFICER documented as of this encounter Plan of Treatment Not on file documented as of this encounter Visit Diagnoses Not on filedocumented in this encounter Additional Health Concerns Assessment Noted Time PHQ-9 Depression Total Score: 22 03/15/ 016 7:08 AM SPORTS DEVELOPMENT OFFICER documented as of this encounter Care Teams Belt Builder Relationship Specialty Start Date End Date Maegan Izaguirre PA-C PCP - General 02/24/09 08/13/18 Maegan Izaguirre PA-C [address] [phone] PCP - Assigned PCP 10/18/09 06/18/18 Mary Jain APRN SUPERVISOR [address] 420 [facility] 741 [place], [place] [address] PCP - General Nurse Practitioner 08/14/18 05/27/20 Laura Chong APRN SUPERVISOR [address] [place] [address]885 PCP - General Internal Medicine 05/28/20 Maegan Izaguirre PA-C [address] [address] Assigned PCP 01/18/12 08/16/19 Minnie Berry NP [address] [phone] Nurse Practitioner Family Practice 06/25/19 Rafy Andrade MD 420 [facility] 284 [place], [place] [address] Resident Primary Care - CC 06/25/19 Mary Jain APRN SUPERVISOR [address] 420 [facility] 741 [place], [place] [address] Nurse Practitioner Nurse Practitioner 06/25/19 Jennifer Soares DO 1151 [place] [address] Assigned PCP 08/17/19 10/04/19 Rafy Andrade MD 420 [facility] 284 [place] [address] Assigned PCP 10/05/19 01/17/20 Mary Jain LOCK PLATER SUPERVISOR [address] 420 [facility] 741 [place] [address] Assigned PCP 01/18/20 05/29/20 Gavi Vega MD [address] [place] [address] MD Ophthalmology 03/03/20 Gavi Vega MD [address] [place] [address] [id number] Assigned Surgical Provider 03/10/20 06/23/22 Laura Chong APRN SUPERVISOR [address] [place] [address] 511305 Assigned PCP 06/27/20 Laura Chong APRN SUPERVISOR [address] [place] [address] 691735 Assigned PCP 05/30/20 06/26/20 Rogelio Cramer DPM [address] [place] [address] 464225 Assigned Musculoskeletal Provider 02/27/21 08/18/22 Dat Zepeda MD [address] [address] Dermatology 01/13/22 11/21/23 Dat Zepeda MD [address] [address] Assigned Surgical Provider 06/24/22 Radha Jeter MD [address] [place] [address] 712225 Dermatology 08/30/23 Michael aMrtines MD [address] 4637[address] Dermatology 11/22/23 documented as of this encounter
--- OUTSIDE RECORDS SUMMARY | 2024-04-27 12:26 | XMS_ITS | Encounter Summary ---
Author Organization [facility] Address [address] [place] [address] Care Team Providers Care Rip Saw Operator Name Role Phone Maegan Izaguirre PA-C Primary Care Provider + Maegan Izaguirre PA-C Unavailable [phone] Minnie Berry NP Unavailable Rafy Andrade MD Unavailable [phone] Mary Jain APRN, CNP Unavailable Jennifer Soares DO Unavailable Rafy Andrade MD Unavailable [phone] Mary Jain APRN, CNP Primary Care Provide r Mary Jain APRN, CNP Unavailable Gavi Vega MD Unavailable + Gavi Vega MD Unavailable + Laura Chong APRN, CNP Primary Care Prov ider Laura Chong APRN, CNP Unavailable + Laura Chongn CONTROL OFFICER MANAGER PHARMACY TECHNICIAN ASSISTANT Unavailable + Rogelio Cramer DPM Unavailable + [phone] Dat Zepeda MD Unavailable + Dat Zepeda MD Unavailable + Radha Jeter MD Unavailable Michael Martines MD Unavailable Reason for Visit * Reason Onset Date Comments Patient Request 07/22/2018 MyChart Communication 07/22/2018 Encounter Details Date Type Department Care Team (Late st Contact Info) Description 07/22/2018 MyC Medical Advice [address] [address] Maegan Izaguirre PA-C [address] [address] Patient Request; MyChart Communication Social History Tobacco Use Types Packs/Day Years Used Date Smoking Tobacco: Never Smokeless Tobacco: Never Alcohol Use Standard Drinks/Week Comments Yes 0 (1 standard drink = 0.6 oz pure alcohol) I think I need to discontinue this again-was self-medicating PHQ-2 Answer Date Recorded PHQ-2 Score 3 04/23/2018 Comments No Sex and Gender Information Value Date Recorded Sex Assigned at Female 03/08/2020 10:03 AM COMMISSIONS ANALYST Legal Sex Female 3:03 AM COMMISSIONS ANALYST Gender Identity Female 03/08/2020 10:03 AM COMMISSIONS ANALYST Sexual Orientation Choose not to disclose 2019 10:03 AM COMMISSIONS ANALYST documented as of this encounter Miscellaneous Notes * Telephone Encounter - Ethan León - 07/23/2018 9:59 AM CDT [facility]aze D[facility] message sent. Thanks! Ethan León Senior Scrum Master * Telephone Encounter - Maegan Izaguirre PA-C - 07/22/2018 4:48 PM CDT The 16th should be fine. If she is able to make the same day this week we could do this as well. Maegan Izaguirre PA-C * Telephone Encounter - Ashley Obrien RN - 07/22/2018 1:45 PM CDT Route to PCP to advise on time frame of visit please. Please see patient's MyChart and note below. You have not seen her in almost 2 years. She has an appointment scheduled for 07/30, but wondering ifyou think she should be seen sooner? You have a same-day on Sunday morning. Due to being on [place], patient was recommended by psychiatrist to have an EKG done. This was about a week ago. We do have a copy of that EKG under 07/19/18 encounter. Patient chose to do this at [facility]. Between the time the EKG was ordered by psychiatrist and going to [facility], she started having some some chest pains. These are intermittent/fleeting and rated at 2/10 on pain scale. She denies any current sx. She denies any further cardiac symptoms such as SOB, dizziness, arm/shoulder/jaw pain, sweating, N&V. She is thinking this could be anxiety related, as when anxiety goes away, itgoes away. She is scheduled with PCP for 07/30/18. I will route to PCP to see if this is soon enoughand educated patient on sx that would warrant ED visit, including sx previously denied. She voices understanding. Ashley Obrien RN documented in this encounter Plan of Treatment Not on file documented as of this encounter Visit Diagnoses Not on filedocumented in this encounter Additional Health Concerns Assessment Noted Time PHQ-9 Depression Total Score: 18 018 7:08 AM CDT documented as of this encounter Care Teams Rip Saw Operator Relationship Specialty Start Date End Date Maegan Izaguirre PA-C PCP - General 02/24/09 08/13/18 Mary Jain APRN PHARMACY TECHNICIAN ASSISTANT [address] [facility] [address] [place], [place] [address] PCP - General Nurse Practitioner 08/14/18 05/27/20 Laura Chong APRN PHARMACY TECHNICIAN ASSISTANT [address] [place], [place] [phone] PCP - General Internal Medicine 05/28/20 Maegan Izaguirre PA-C [address] [phone] Assigned PCP 01/18/12 08/16/19 Minnie Berry NP [address] [phone] Nurse Practitioner Family Practice 06/25/19 Rafy Andrade MD [address] [place] [address] [address] [place], [place] 355305 Resident Primary Care - CC 06/25/19 Mary Jain APRN PHARMACY TECHNICIAN ASSISTANT 420 [facility] [address] [place] [address] Nurse Practitioner Nurse Practitioner 06/25/19 Jennifer Soares DO [address] [place] [address] Assigned PCP 08/17/19 10/04/19 Rafy Andrade MD 420 [facility] 284 [place] [address] Assigned PCP 10/05/19 01/17/20 Mary Jain CONTROL OFFICER MANAGER PHARMACY TECHNICIAN ASSISTANT 420 [facility] [address] [place] [address] Assigned PCP 01/18/20 05/29/20 Gavi Vega MD [address] [place] [address] Ophthalmology 03/03/20 Gavi Vega MD [address] [place] [address] Assigned Surgical Provider 03/10/20 06/23/22 Laura Chong APRN PHARMACY TECHNICIAN ASSISTANT [address] [place] [address] [phone] Assigned PCP 06/27/20 Laura Chong APRN PHARMACY TECHNICIAN ASSISTANT [address] [place] [address] Assigned PCP 05/30/20 06/26/20 Rogelio Cramer DPM [address] [place] [address] [phone] Assigned Musculoskeletal Provider 02/27/21 08/18/22 Dat Zepeda MD [facility] 516 [facility] 98 [place] [address] Dermatology 01/13/22 11/21/23 Dat Zepeda MD [facility] 516 [facility] 98 [place] [address] Assigned Surgical Provider 06/24/22 Radha Jeter MD [address] [place] [address] [id number] Dermatology 08/30/23 Michael Martines MD [address] [id number] Dermatology 11/22/23 documented as of this encounter
--- OUTSIDE RECORDS SUMMARY | 2024-04-27 12:26 | XMS_ITS | Encounter Summary ---
Author Organization [facility] Address [address] [place] [address] Care Team Providers Care Ditching Machine Operator Name Role Phone Minnie Berry NP Unavailable [phone] Rafy Andrade MD Unavailable [phone] Mary Jain MILK DELIVERY DRIVER HARVEST WORKER FRUIT Unavailable Gavi Vega MD Unavailable + Gavi Vega MD Unavailable + Laura Chong MILK DELIVERY DRIVER HARVEST WORKER FRUIT Primary Care Prov ider Laura Chong APRN HARVEST WORKER FRUIT Unavailable + Rogelio CramerM Unavailable + [phone] Dat Zepeda MD Unavailable + [phone] Dat Zepeda MD Unavailable [phone] Radha Jeter MD Unavailable Michael Martines MD Unavailable Encounter Details Date Type Department Care Team (Late st Contact Info) Description 08/22/2021 [facility] Internal Medicine [address] [place] [phone] Laura Chong APRN HARVEST WORKER FRUIT [address] [place] [address] Social History Tobacco Use Types Packs/Day Years Used Date Smoking Tobacco: Never Smokeless Tobacco: Never Alcohol Use Standard Drinks/Week Comments Not Currently 0 (1 standard drink = 0.6 oz pur e alcohol) sober since 2018 PHQ-2 Answer Date Recorded PHQ-2 Score 4 06/26/2019 Comments No Sex and Gender Information Value Date Recorded Sex Assigned at Female 03/08/2020 10:03 AM LITIGATION SPECIALIST Legal Sex Female 3:03 AM LITIGATION SPECIALIST Gender Identity Female 03/08/2020 10:03 AM LITIGATION SPECIALIST Sexual Orientation Choose not to disclose 2019 10:03 AM LITIGATION SPECIALIST COVID-19 Exposure Response Date Recorded In the last 10 days, have yo u been in contact with someone who was confirmed or suspected to have Coronavirus/COVID-19? No / Unsure 08/20/2021 2:32 PM CDT documented as of this encounter Miscellaneous Notes * Telephone Encounter - Irasema Hansen - 08/24/2021 11:28 AM CDT documented in this encounter Plan of Treatment Not on file documented as of this encounter Visit Diagnoses Not on filedocumented in this encounter Additional Health Concerns Assessment Noted Time PHQ-9 Depression Total Score: 12 020 9:18 AM CDT documented as of this encounter Care Teams Ditching Machine Operator Relationship Specialty Start Date End Date Laura Chong APRN HARVEST WORKER FRUIT [address] [place] [address] PCP - General Internal Medicine 05/28/20 Minnie Berry NP Nurse Practitioner Family Practice 06/25/19 Rafy Andrade MD 420 [facility] 284 [place] [address] Resident Primary Care - CC 06/25/19 Mary Jain APRN HARVEST WORKER FRUIT 420 [facility] 741 [place] [address] Nurse Practitioner Nurse Practitioner 06/25/19 Gavi Vega MD [address] [place] [address] Ophthalmology 03/03/20 Gavi Vega MD 909 [place] [address] Assigned Surgical Provider 03/10/2002/05 Laura Chong APRN HARVEST WORKER FRUIT [address] [place] [address] [phone] Assigned PCP 06/27/20 Rogelio Cramer DPM [address] [place], [place] 166975 Assigned Musculoskeletal Provider 02/27/21 08/18/22 Dat Zepeda MD [facility] 516 [facility] 98 [place] [address] Dermatology 01/13/22 11/21/23 Dat Zepeda MD [facility] 516 [facility] 98 [place] [address] Assigned Surgical Provider 06/24/22 Radha Jeter MD 420 [facility] 98 [place], [place] 5[address] Dermatology 08/30/23 Michael Martines MD [address] [phone] Dermatology 11/22/23 documented as of this encounter
--- OUTSIDE RECORDS SUMMARY | 2024-04-27 12:26 | XMS_ITS | Encounter Summary ---
Author Organization [facility] Address [address] [place] [address] Care Team Providers Care Heel Varnisher Name Role Phone Maegan Izaguirre PA-C Primary Care Provider + Maegan Izaguirre PA-C Unavailable Maegan Izaguirre PA-C Unavailable Minnie Berry NP Unavailable [phone] Rafy Andrade MD Unavailable [phone] Mary Jain APRN LEAD PHP DEVELOPER Unavailable AnthonyJennifer dial DO Unavailable Rafy Andrade MD Unavailable [phone] Mary Jain APRN, CNP Primary Care Provide r Mary Jain APRN LEAD PHP DEVELOPER Unavailable [phone] Gavi Vega MD Unavailable + Gavi Vega MD Unavailable + Laura Chong APRN, CNP Primary Care Prov ider Laura Chong APRN LEAD PHP DEVELOPER Unavailable + Laura Chong Jade CASANOVA LEAD PHP DEVELOPER Unavailable + Kosta Crameron Aren DPM Unavailable + Dat Zepeda MD Unavailable + Dat Zepeda MD Unavailable + aRdha Jeter MD Unavailable Michael Martines MD Unavailable Reason for Visit * Reason Onset Date Comments Refill Request 04/18/2016 MyChart Communication 04/18/2016 Encounter Details Date Type Department Care Team (Late st Contact Info) Description 04/18/2016 MyC Refill [address] [address] Maegan Izaguirre PA-C [address] [address] Refill Request; MyChart Communication Social History Tobacco Use Types Packs/Day Years Used Date Smoking Tobacco: Never Smokeless Tobacco: Never Alcohol Use Standard Drinks/Week Comments Yes 0 (1 standard drink = 0.6 oz pur e alcohol) 9 glasses of wine per week Comments No Sex and Gender Information Value Date Recorded Sex Assigned at Female 03/08/2020 10:03 AM BRINE MIXER OPERATOR Legal Sex Female 3:03 AM BRINE MIXER OPERATOR Gender Identity Female 03/08/2020 10:03 AM BRINE MIXER OPERATOR Sexual Orientation Choose not to disclose 2019 10:03 AM BRINE MIXER OPERATOR documented as of this encounter Miscellaneous Notes * Telephone Encounter - Katy Mead RN - 04/18/2016 3:22 PM BRINE MIXER OPERATOR Sent MyChart. Will leave open in case she responds. Katy Mead RN E MIXER OPERATOR * Telephone Encounter - Mandy Higgins - 04/18/2016 11:38 AM C[facility]Message [facility] Original authorizing provider: HERIBERTO Huston would like a refill of the following medications: clonazePAM (KLONOPIN) 0.5 MG tablet [Maegan Izaguirre PA-C] Preferred pharmacy: [id number] Comment: Christian Issa, I thought I had one more month's refill sheet for Clonazepam, but I think I was wrong? Please let me know if I am mistaken - I did not see it in my papers when I checked this morning. If I am not mistaken, could you please send a refill to [facility] pharmacy in [place]? I am almost out - I last filled it on 03/14/2016. Thank-you, Antonia King [phone] E MIXER OPERATOR documented in this encounter Plan of Treatment Not on file documented as of this encounter Visit Diagnoses Diagnosis Generalized anxiety disorder documented in this encounter Additional Health Concerns Assessment Noted Time PHQ-9 Depression Total Score: 11 03/29/ 016 7:59 AM BRINE MIXER OPERATOR documented as of this encounter Care Teams Heel Varnisher Relationship Specialty Start Date End Date Maegan Izaguirre PA-C PCP - General 02/24/09 08/13/18 Maegan Izaguirre PA-C [address] [place] [phone] PCP - Assigned PCP 10/18/09 06/18/18 Mary Jain APRN LEAD PHP DEVELOPER [address] [place] [address] 741 [place], [place] [phone] PCP - General Nurse Practitioner 08/14/18 05/27/20 Laura Chong APRN LEAD PHP DEVELOPER 909 [place] [address] PCP - General Internal Medicine 05/28/20 Maegan Izaguirre PA-C [facility] [address] [phone] Assigned PCP 01/18/12 08/16/19 Minnie Berry NP [address] [phone] Nurse Practitioner Family Practice 06/25/19 Rafy Andrade MD [address] [place] [address] 284 [place] [address] Resident Primary Care - CC 06/25/19 Mary Jain APRN LEAD PHP DEVELOPER 420 [facility] [address] [place] [address] 214885 Nurse Practitioner Nurse Practitioner 06/25/19 Jennifer Soares DO [address] [place], [place] [phone] Assigned PCP 08/17/19 10/04/19 Rafy Andrade MD [address] [place] [address] 284 [place] [address] Assigned PCP 10/05/19 01/17/20 Mary Jain APRN LEAD PHP DEVELOPER 420 [facility] 741 [place], [place] [address]75 Assigned PCP 01/18/20 05/29/20 aGvi Vega MD [address] [place] [address] Ophthalmology 03/03/20 Gavi Vega MD [address] [place] [address] [phone] Assigned Surgical Provider 03/10/20 06/23/22 Laura Chong APRN LEAD PHP DEVELOPER [address] [place] [address]755 Assigned PCP 06/27/20 Laura Chong APRN LEAD PHP DEVELOPER [address] [place] [address] 815125 Assigned PCP 05/30/20 06/26/20 Rogelio Cramer DPM [address] [place] [address] 080745 Assigned Musculoskeletal Provider 02/27/21 08/18/22 Dat Zepeda MD [address] [address] Dermatology 01/13/22 11/21/23 Dat Zepeda MD [address] [address] Assigned Surgical Provider 06/24/22 Radha Jeter MD [address] [place] [address]405 Dermatology 08/30/23 Michael Martines MD [address] [place] [address] Dermatology 11/22/23 documented as of this encounter
--- OUTSIDE RECORDS SUMMARY | 2024-04-27 12:26 | XMS_ITS | Encounter Summary ---
Author Organization [facility] Address [address] [place] [address] Care Team Providers Care Chocolate Finisher Operator Name Role Phone Minnie Berry NP Unavailable [phone] Rafy Andrade MD Unavailable [phone] Mary Jain APRN MACHINE SANDER Unavailable Gavi Vega MD Unavailable + Laura Chong APRN MACHINE SANDER Primary Care Prov ider Laura Chong APRN MACHINE SANDER Unavailable + Dat Zepeda MD Unavailable [phone] Radha Jeter MD Unavailable Michael Martines MD Unavailable Reason for Visit * Reason Onset Date Comments Prior Auth - Medication 11/26/2023 OTEZLA 1 0,20, 30MG PACK-PA NOT NEEDED Encounter Details Date Type Department Care Team (Late st Contact Info) Description 11/26/2023 [facility] Internal Medicine [address] [place] [address] Laura Chong APRN MACHINE SANDER 9[address] [place] [address] Prior Auth - Medication (OTEZLA 10,20, 30MG PACK-PA NOT NEEDED ) Social History Tobacco Use Types Packs/Day [...] re latives? Once a week 08/29/2023 Attends [employer] Services Not on file 08/28 Active Member of Clubs or Organizations Not on f ile 08/29/2023 Attends Club or Organization Meetings Not on isaias e 08/29/2023 Marital Status Not on file 08/29/2023 PHQ-2 Answer Date Recorded PHQ-2 Score 2 08/29/2023 [facility] - Occupational Stress [...] in an abandoned building, in an overnight long term, or couch-surfing.) Yes 08/29/2023 Are you worried [...] Sex Assigned at Female 03/08/2020 10:03 AM CHOPPER GUN OPERATOR Legal Sex Female 3:03 AM CHOPPER GUN OPERATOR Gender Identity Female 03/08/2020 10:03 AM CHOPPER GUN OPERATOR Sexual Orientation Choose not to disclose 2019 10:03 AM CHOPPER GUN OPERATOR documented as of this encounter Miscellaneous Notes * Telephone Encounter - Arvind Werner - 12/10/2023 12:06 PM CDT Images from the original note were not included. Received Letter from Insurance indicating PA Approval on Otezla 30 MG and Effective Dates: 03/23/2023-03/22/2024 as noted below. * Telephone Encounter - Arvind Werner - 12/04/2023 2:01 PM CDT Images from the original note were not included. Prior Authorization Not Needed per Insurance Medication: OTEZLA 10,20, 30MG PACK-PA NOT NEEDED Insurance Company: [employer] - Expected CoPay: Pharmacy Filling the Rx: [place], [place] - [address] [place] [address] [phone] Pharmacy Notified: Yes Patient Notified: No Per Patients insurance Request as noted below; provider/clinic staff is considering 30 MG Quantity 60 for 30 day supply as there is still a PA Approval on File for 30 MG dose. Notify pharmacy on the changes and approval by provider/clinic staff on 30 MG; however, pharmacy stated that they will needa new script for the changes that has been made and order for pharmacy to fill medication to patient. Faxed sent to notify [employer] insurance on what provider/clinic staff decided. * Telephone Encounter - Arvind Werner - 12/03/2023 2:10 PM CDT Images from the original note were not included. Received additional information from insurance as noted below. Please provide additional/documentation why patient is requesting for DOSEPAK. PA Approval on File for 30 MG Until 03/22/2024 for Quantity 60 for 30 day supply. * Telephone Encounter - Arvind Werner - 11/28/2023 9:35 AM CDT Images from the original note were not included. [place] Prior Authorization Team PA Initiation Medication: OTEZLA 10,20, 30MG PACK Insurance Company: [employer] - Pharmacy Filling the Rx: [facility] [place], [place] - [address] [facility] [phone] Filling Pharmacy Filling Pharmacy Fax: Start Date: 11/28/2023 * Telephone Encounter - Chilo Terry - 11/26/2023 1:52 PM CDT [facility] Prior Authorization Team Request Medication: OTEZLA 10,20, 30MG PACK Dosing: DIRECTED PER PACK INSTRUCTIONS Qty: 55 Day Supply: 27 [place] (required for Medicaid members): [id number] Insurance BIN: [id number] PCN: [id number] Grp: [id number] ID: [id number] CoverMyMeds [place] (if applicable): Additional documentation: Filling Pharmacy: [facility] Contact: Pharmacy NPI (required for Medicaid members): [id number] documented in this encounter Plan of Treatment Not on file documented as of this encounter Visit Diagnoses Diagnosis Psoriasis vulgaris- Primary Other psoriasis documented in this encounter Additional Health Concerns Assessment Noted Time PHQ-9 Depression Total Score: 5 08/29/19 24 3:03 PM CDT documented as of this encounter Care Teams Chocolate Finisher Operator Relationship Specialty Start Date End Date Laura Chong APRN MACHINE SANDER [address] [place] [address] [phone] PCP - General Internal Medicine 05/28/20 Minnie Berry NP Nurse Practitioner Family Practice 06/25/19 Rafy Andrade MD [address] [place] [address] 284 [place], [place] 996405 Resident Primary Care - CC 06/25/19 Mary Jain APRN MACHINE SANDER [address] [place] [address] 741 [place], [place] 880645 Nurse Practitioner Nurse Practitioner 06/25/19 Gavi Vega MD [facility] [address] [address] Ophthalmology 03/03/20 Laura Chong APRN MACHINE SANDER [address] [place] [address] [id number] Assigned PCP 06/27/20 Dat Zepeda MD [place] 119196 [address] [address] Assigned Surgical Provider 06/24/22 Radha Jeter MD [address] [place] [address] [phone] Dermatology 08/30/23 Michael Martines MD [address] [place] [address] [phone] Dermatology 11/22/23 documented as of this encounter
--- OUTSIDE RECORDS SUMMARY | 2024-04-27 12:26 | XMS_ITS | Encounter Summary ---
Author Organization [place] Address [address] [place] [address] Care Team Providers Care Medical Tech Name Role Phone Maegan Izaguirre PA-C Unavailable Minnie Berry NP Unavailable [phone] Rafy Andrade MD Unavailable Mary Jain APRN AUTOMATION ENGINEER Unavailable [phone] Jennifer Soares DO Unavailable Rafy Andrade MD Unavailable Mary Jain APRN, CNP Primary Care Provide r Mary Jain APRN, CNP Unavailable Gavi Vega MD Unavailable + Gavi Vega MD Unavailable + Laura Chong APRN, CNP Primary Care Prov ider Laura Chong APRN, CNP Unavailable + Laura Chong APRN, CNP Unavailable + Rogelio CramerM Unavailable + [phone] Dat Zepeda MD Unavailable +[phone] Dat Zepeda MD Unavailable +[phone] Radha Jeter MD Unavailable Michael Martines MD Unavailable Encounter Details Date Type Department Care Team (Late st Contact Info) Description 09/16/2018 [facility] [address] [facility] 5th [place] [address] Britni Page, BEE [address] [address] Social History Tobacco Use Types Packs/Day Years Used Date Smoking Tobacco: Never Smokeless Tobacco: Never Alcohol Use Standard Drinks/Week Comments Yes 0 (1 standard drink = 0.6 oz pure alcohol) I think I need to discontinue this again-was self-medicating PHQ-2 Answer Date Recorded PHQ-2 Score 3 04/23/2018 Comments No Sex and Gender Information Value Date Recorded Sex Assigned at Female 03/08/2020 10:03 AM HUMAN RESOURCES GENERALIST Legal Sex Female 3:03 AM HUMAN RESOURCES GENERALIST Gender Identity Female 03/08/2020 10:03 AM HUMAN RESOURCES GENERALIST Sexual Orientation Choose not to disclose 2019 10:03 AM HUMAN RESOURCES GENERALIST documented as of this encounter Plan of Treatment Not on file documented as of this encounter Visit Diagnoses Not on filedocumented in this encounter Additional Health Concerns Assessment Noted Time PHQ-9 Depression Total Score: 18 018 7:08 AM CDT documented as of this encounter Care Teams Medical Tech Relationship Specialty Start Date End Date Mary Jain APRN AUTOMATION ENGINEER [address] [facility] 741 [place] [address] PCP - General Nurse Practitioner 08/14/18 05/27/20 Laura Chong APRN AUTOMATION ENGINEER [address] [place] [address] PCP - General Internal Medicine 05/28/20 Maegan Izaguirre PA-C [address] [phone] Assigned PCP 01/18/12 08/16/19 Minnie Berry NP [address] [phone] Nurse Practitioner Family Practice 06/25/19 Rafy Andrade MD [address] [place] [address] 369965 Resident Primary Care - CC 06/25/19 Mary Jain APRN AUTOMATION ENGINEER [address] [place] [address] [phone] Nurse Practitioner Nurse Practitioner 06/25/19 Jennifer Soares DO 1151 [place] [address] Assigned PCP 08/17/19 10/04/19 Rafy Andrade MD [address] [place] [address] 284 [place], [place] 121755 Assigned PCP 10/05/19 01/17/20 Mary Jain APRN AUTOMATION ENGINEER 420 [facility] [address] [place] [address] Assigned PCP 01/18/20 05/29/20 Gavi Vega MD [address] [place] [address] Ophthalmology 03/03/20 Gavi Vega MD [address] [place] [address] 00213 Assigned Surgical Provider 03/10/20 06/23/22 Laura Chong APRN AUTOMATION ENGINEER [address] [place] [address] 771965 Assigned PCP 06/27/20 Laura Chong APRN AUTOMATION ENGINEER [address] [place] [address] 903985 Assigned PCP 05/30/20 06/26/20 Rogelio Cramer DPM [address] [place] [address] 940695 Assigned Musculoskeletal Provider 02/27/21 08/18/22 Dat Zepeda MD [address] 179845 Dermatology 01/13/22 11/21/23 Dat Zepeda MD [address] 456105 Assigned Surgical Provider 06/24/22 Radha Jeter MD [address] [place] [address] 526015 Dermatology 08/30/23 Michael Martines MD [address] [place] [address] Dermatology 11/22/23 documented as of this encounter
--- OUTSIDE RECORDS SUMMARY | 2024-04-27 12:26 | XMS_ITS | Encounter Summary ---
Author Organization [facility] Address [address] [place] [address] Care Team Providers Care Dry Box Operator Name Role Phone Jamal Minnie BEE Unavailable [phone] Rafy Andrade MD Unavailable [phone] Mary Jain APRN DATA MIGRATION CONSULTANT Unavailable Mary Jain APRN DATA MIGRATION CONSULTANT Primary Care Provide r Mary Jain APRN DATA MIGRATION CONSULTANT Unavailable Gavi Vega MD Unavailable + Gavi Vega MD Unavailable + Laura Chong APRN DATA MIGRATION CONSULTANT Primary Care Prov ider Laura Chong APRN DATA MIGRATION CONSULTANT Unavailable + Laura Chong APRN DATA MIGRATION CONSULTANT Unavailable + Rogelio Cramer DPM Unavailable +[phone] Dat Zepeda MD Unavailable + Dat Zepeda MD Unavailable + Radha Jeter MD Unavailable Michael Martines MD Unavailable Encounter Details Date Type Department Care Team (Late st Contact Info) Description 04/07/2020 [facility] Medical Advice Adult Call Center [address] [place] [phone] Sarita Roper Social History Tobacco Use Types [...] Sex Assigned at Female 03/08/2020 10:03 AM RECRUITING CONSULTANT Legal Sex Female 3:03 AM RECRUITING CONSULTANT Gender Identity Female 03/08/2020 10:03 AM RECRUITING CONSULTANT Sexual Orientation Choose not to disclose 2019 10:03 AM RECRUITING CONSULTANT COVID-19 Exposure Response Date Recorded In the last month, have you been in contact with someone who was confirmed or suspected to have Coronavirus / COVID-19? No / Unsure 03/31/2020 3:19 PM RECRUITING CONSULTANT documented as of this encounter Plan of Treatment Not on file documented as of this encounter Visit Diagnoses Not on filedocumented in this encounter Additional Health Concerns Assessment Noted Time PHQ-9 Depression Total Score: 12 020 9:18 AM CDT documented as of this encounter Care Teams Dry Box Operator Relationship Specialty Start Date End Date Mary Jain APRN DATA MIGRATION CONSULTANT [address] [place] [address] 741 [place] [address] PCP - General Nurse Practitioner 08/14/18 05/27/20 Laura Chong APRN DATA MIGRATION CONSULTANT [address] [place] [address] PCP - General Internal Medicine 05/28/20 Minnie Berry NP Nurse Practitioner Family Practice 06/25/19 Rafy Andrade MD 420 [facility] 284 [place], [place] 297115 Resident Primary Care - CC 06/25/19 Mary Jain APRN DATA MIGRATION CONSULTANT [address] [place] [address] 741 [place], [place] 720885 Nurse Practitioner Nurse Practitioner 06/25/19 Mary Jain APRN DATA MIGRATION CONSULTANT [address] [place] [address] 741 [place], [place] 376185 Assigned PCP 01/18/20 05/29/20 Gavi Vega MD [facility] [address], [place] [address] MD Ophthalmology 03/03/20 Gavi Vega MD [address] [place] [address] 788795 Assigned Surgical Provider 03/10/2002/05 Laura Chong APRN DATA MIGRATION CONSULTANT [address] [place] [address] 88[address] Assigned PCP 06/27/20 Laura Chong APRN DATA MIGRATION CONSULTANT [address] [place] [address] Assigned PCP 05/30/20 06/26/20 Rogelio Cramer DPM [address] [place] [address] 08958 Assigned Musculoskeletal Provider 02/27/21 08/18/22 Dat Zepeda MD [address] [address] Dermatology 01/13/22 11/21/23 Dat Zepeda MD [address] [address] Assigned Surgical Provider 06/24/22 Radha Jeter MD [address] [place] [address] Dermatology 08/30/23 Michael Martines MD [address] [place] [address]27 Dermatology 11/22/23 documented as of this encounter
--- OUTSIDE RECORDS SUMMARY | 2024-04-27 12:26 | XMS_ITS | Encounter Summary ---
Author Organization [place] Address [address] [place] [address] Care Team Providers Care Director Of Corporate Communications Name Role Phone Jamal Minnie BEE Unavailable [phone] Rafy Andrade MD Unavailable [phone] Mary Jain APRN BLOWING ENGINEER Unavailable Gavi Vega MD Unavailable + Laura Chong MECHANICAL DESIGN ENGINEER PRODUCTS BLOWING ENGINEER Primary Care Prov ider Laura Chong APRN BLOWING ENGINEER Unavailable + Dat Zepeda MD Unavailable +[phone] Dat Zepeda MD Unavailable +[phone] Radha Jeter MD Unavailable Michael Martines MD Unavailable Encounter Details Date Type Department Care Team (Late st Contact Info) Description 10/25/2022 [facility] - [address] 4th [place] [address] Gavi Vega MD [address] [place] [address] Social History Tobacco Use Types Packs/Day Years Used Date Smoking Tobacco: Never Smokeless Tobacco: Never Alcohol Use Standard Drinks/Week Comments Not Currently 0 (1 standard drink = 0.6 oz pur e alcohol) sober since 2018 PHQ-2 Answer Date Recorded PHQ-2 Score 4 06/26/2019 Comments No Sex and Gender Information Value Date Recorded Sex Assigned at Female 03/08/2020 10:03 AM CRUDE UNIT OPERATOR Legal Sex Female 3:03 AM CRUDE UNIT OPERATOR Gender Identity Female 03/08/2020 10:03 AM CRUDE UNIT OPERATOR Sexual Orientation Choose not to disclose 2019 10:03 AM CRUDE UNIT OPERATOR COVID-19 Exposure Response Date Recorded In the last 10 days, have yo u been in contact with someone who was confirmed or suspected to have Coronavirus/COVID-19? No / Unsure 10/24/2022 4:05 PM CDT documented as of this encounter Plan of Treatment Not on file documented as of this encounter Visit Diagnoses Not on filedocumented in this encounter Additional Health Concerns Assessment Noted Time PHQ-9 Depression Total Score: 12 020 9:18 AM CDT documented as of this encounter Care Teams Director Of Corporate Communications Relationship Specialty Start Date End Date Laura Chong APRN BLOWING ENGINEER [address] [place] [address] 998255 PCP - General Internal Medicine 05/28/20 Minnie Berry NP Nurse Practitioner Family Practice 06/25/19 Rafy Andrade MD 420 [facility] 284 [place], [place] 701175 Resident Primary Care - CC 06/25/19 Mary Jain APRN BLOWING ENGINEER 420 [facility] 741 [place], [place] 194475 Nurse Practitioner Nurse Practitioner 06/25/19 Gavi Vega MD [address], [place] [address] Ophthalmology 03/03/20 Laura Chong APRN BLOWING ENGINEER [address] [place] [address] Assigned PCP 06/27/20 Dat Zepeda MD [address] [phone] Dermatology 01/13/22 11/21/23 Dat Zepeda MD [address] 331205 Assigned Surgical Provider 06/24/22 Radha Jeter MD [address] [place] [address] 498375 Dermatology 08/30/23 Michael Martines MD [address] 074830 Dermatology 11/22/23 documented as of this encounter
--- OUTSIDE RECORDS SUMMARY | 2024-04-27 12:26 | XMS_ITS | Encounter Summary ---
Author Organization [facility] Address [address] [place] [address] Care Team Providers Care Heel Builder Machine Name Role Phone Maegan Izaguirre PA-C Primary Care Provider + Maegan Izagurire PA-C Unavailable Maegan Izaguirre PA-C Unavailable [phone] Minnie Berry NP Unavailable [phone] Rafy Andrade MD Unavailable [phone] Mary Jain APRN PAROLE BOARD MEMBER Unavailable AnthonyJennifer dial DO Unavailable Rafy Andrade MD Unavailable [phone] Mary Jain APRN, CNP Primary Care Provide r Mary Jain APRN PAROLE BOARD MEMBER Unavailable [phone] Gavi Vega MD Unavailable + Gavi Vega MD Unavailable + Laura Chong APRN, CNP Primary Care Prov ider Lauar Chong APRN PAROLE BOARD MEMBER Unavailable + Laura Chong Jade CASANOVA PAROLE BOARD MEMBER Unavailable + Rogelio CramerM Unavailable + Dat Zepeda MD Unavailable + Dat Zepeda MD Unavailable + Radha Jeter MD Unavailable Michael Martines MD Unavailable Encounter Details Date Type Department Care Team (Late st Contact Info) Description 05/01/2016 [facility] [address] [phone] Maegan Izaguirre PA-C [address] [address] Social History Tobacco Use Types Packs/Day Years Used Date Smoking Tobacco: Never Smokeless Tobacco: Never Alcohol Use Standard Drinks/Week Comments Yes 0 (1 standard drink = 0.6 oz pur e alcohol) Currently none Comments No Sex and Gender Information Value Date Recorded Sex Assigned at Female 03/08/2020 10:03 AM WOOD WINDOW AND DOOR CRAFTSMAN Legal Sex Female 3:03 AM WOOD WINDOW AND DOOR CRAFTSMAN Gender Identity Female 03/08/2020 10:03 AM WOOD WINDOW AND DOOR CRAFTSMAN Sexual Orientation Choose not to disclose 2019 10:03 AM WOOD WINDOW AND DOOR CRAFTSMAN documented as of this encounter Plan of Treatment Not on file documented as of this encounter Visit Diagnoses Not on filedocumented in this encounter Additional Health Concerns Assessment Noted Time PHQ-9 Depression Total Score: 14 017 7:09 AM WOOD WINDOW AND DOOR CRAFTSMAN documented as of this encounter Care Teams Heel Builder Machine Relationship Specialty Start Date End Date Maegan Izaguirre PA-C PCP - General 02/24/09 08/13/18 Maegan Izaguirre PA-C [address] [place] [address] [place] [phone] PCP - Assigned PCP 10/18/09 06/18/18 Mary Jain APRN PAROLE BOARD MEMBER 420 [facility] 741 [place], [place] [address] PCP - General Nurse Practitioner 08/14/18 05/27/20 Laura Chong APRN PAROLE BOARD MEMBER [address] [place] [address] 219215 PCP - General Internal Medicine 05/28/20 Maegan Izaguirre PA-C [address] [phone] Assigned PCP 01/18/12 08/16/19 Minnie Berry NP [address] [phone] Nurse Practitioner Family Practice 06/25/19 Rafy Andrade MD 420 [facility] 284 [place], [place] 870845 Resident Primary Care - CC 06/25/19 Mary Jain, BLACK BELT PAROLE BOARD MEMBER 420 [facility] 741 [place], [place] 035305 Nurse Practitioner Nurse Practitioner 06/25/19 Jennifer Soares DO [address] [place] [address] 19344 Assigned PCP 08/17/19 10/04/19 Rafy Andrade MD 420 [facility] 284 [place] [address] Assigned PCP 10/05/19 01/17/20 Mary Jain APRN PAROLE BOARD MEMBER 420 [facility] 741 [place] [address] Assigned PCP 01/18/20 05/29/20 Gavi Vega MD [address] [place] [address] MD Ophthalmology 03/03/20 Gavi Vega MD [address] [place] [address] 40005 Assigned Surgical Provider 03/10/20 06/23/22 Laura Chong APRN PAROLE BOARD MEMBER [address] [place] [address] 9[address] Assigned PCP 06/27/20 Laura Chong APRN PAROLE BOARD MEMBER [address] [place] [address] Assigned PCP 05/30/20 06/26/20 Rogelio Cramer DPM [address] [place] [address] 20438 Assigned Musculoskeletal Provider 02/27/21 08/18/22 Dat Zepeda MD [facility] [address] [address] Dermatology 01/13/22 11/21/23 Dat Zepeda MD [facility] [address] [address] Assigned Surgical Provider 06/24/22 Radha Jeter MD [address] [place] [address] Dermatology 08/30/23 Michael Martines MD [address] [place] [address] Dermatology 11/22/23 documented as of this encounter
--- OUTSIDE RECORDS SUMMARY | 2024-04-27 12:26 | XMS_ITS | Encounter Summary ---
Author Organization [facility] Address [address] [place] [address] Care Team Providers Care Oracle Webcenter Consultant Name Role Phone Maegan Izaguirre PA-C Primary Care Provider + Maegan Izaguirre PA-C Unavailable Maegan Izaguirre PA-C Unavailable [phone] Minnie Berry NP Unavailable [phone] Rafy Andrade MD Unavailable [phone] Mary Jain APRN CHECK EMBOSSER Unavailable AnthonyJennifer dial DO Unavailable Rafy Andrade MD Unavailable [phone] Mary Jain APRN, CNP Primary Care Provide r Mary Jain APRN CHECK EMBOSSER Unavailable [phone] Gavi Vega MD Unavailable + Gavi Vega MD Unavailable + Laura Chong APRN, CNP Primary Care Prov ider Laura Chong APRN CHECK EMBOSSER Unavailable + Castillo Laura Hansen APRN CHECK EMBOSSER Unavailable + Rogelio CramerM Unavailable + Dat Zepeda MD Unavailable + Dat Zepeda MD Unavailable + Radha Jeter MD Unavailable Michael Martines MD Unavailable Encounter Details Date Type Department Care Team (Latest Contact Info) Description 03/05/2017 Historic Results Social History Tobacco Use Types Packs/Day Years Used Date Smoking Tobacco: Never Smokeless Tobacco: Never Alcohol Use Standard Drinks/Week Comments Yes 0 (1 standard drink = 0.6 oz pure alcohol) I think I need to discontinue this again-was self-medicating Comments No Sex and Gender Information Value Date Recorded Sex Assigned at Female 03/08/2020 10:03 AM CLERK OF SCALES Legal Sex Female 3:03 AM CLERK OF SCALES Gender Identity Female 03/08/2020 10:03 AM CLERK OF SCALES Sexual Orientation Choose not to disclose 2019 10:03 AM CLERK OF SCALES documented as of this encounter Plan of Treatment Not on file documented as of this encounter Visit Diagnoses Not on filedocumented in this encounter Additional Health Concerns Assessment Noted Time PHQ-9 Depression Total Score: 11 017 4:55 PM CLERK OF SCALES documented as of this encounter Care Teams Oracle Webcenter Consultant Relationship Specialty Start Date End Date Maegan Izaguirre PA-C PCP - General 02/24/09 08/13/18 Maegan Izaguirre PA-C [address] [place] [address] PCP - Assigned PCP 10/18/09 06/18/18 Mary Jain APRN CHECK EMBOSSER [address] [place] [address] 741 [place] [address] PCP - General Nurse Practitioner 08/14/18 05/27/20 Laura Chong APRN CHECK EMBOSSER 909 [place] [address] PCP - General Internal Medicine 05/28/20 Maegan Izaguirre PA-C [address] [phone] Assigned PCP 01/18/12 08/16/19 Minnie Berry NP [address] [phone] Nurse Practitioner Family Practice 06/25/19 Rafy Andrade MD 420 [facility] 284 [place], [place] 925315 Resident Primary Care - CC 06/25/19 Mary Jain APRN CHECK EMBOSSER 420 [facility] 741 [place] [address] Nurse Practitioner Nurse Practitioner 06/25/19 Jennifer Soares DO [address] [place] [address]59 Assigned PCP 08/17/19 10/04/19 Rafy Andrade MD 420 [facility] 284 [place] [address] Assigned PCP 10/05/19 01/17/20 Mary Jain OTR TRUCK DRIVER CHECK EMBOSSER [address] [place] [address] 741 [place] [address] Assigned PCP 01/18/20 05/29/20 Gavi Vega MD [facility] 24[place], [place] [address] Ophthalmology 03/03/20 Gavi Vega MD [address] [place] [address] 361405 Assigned Surgical Provider 03/10/20 06/23/22 Laura Chong APRN CHECK EMBOSSER [address] [place] [address] Assigned PCP 06/27/20 Laura Chong APRN CHECK EMBOSSER [address] [place] [address] 093995 Assigned PCP 05/30/20 06/26/20 Rogelio Cramer DPM [address] [place] [address] 301185 Assigned Musculoskeletal Provider 02/27/21 08/18/22 Dat Zepeda MD [address] [address] Dermatology 01/13/22 11/21/23 Dat Zepeda MD [address] [address] Assigned Surgical Provider 06/24/22 Radha Jeter MD [address] [place] [address] 970675 Dermatology 08/30/23 Michael Martines MD [address] [place] [address] 793710 Dermatology 11/22/23 documented as of this encounter
--- OUTSIDE RECORDS SUMMARY | 2024-04-27 12:26 | XMS_ITS | Encounter Summary ---
Author Organization [place] Address [address] [place] [address] Care Team Providers Care Dobby Loom Chain Pegger Name Role Phone Maegan Izaguirre PA-C Unavailable [phone] Minnie Berry NP Unavailable Rafy Andrade MD Unavailable Mary Jain APRN CEMENT MASON Unavailable Jennifer Soares DO Unavailable Rafy Andrade MD Unavailable Mary Jain APRN, CNP Primary Care Provide r Mary Jain APRN, CNP Unavailable Gavi Vega MD Unavailable + Gavi Vega MD Unavailable + Laura Chong APRN, CNP Primary Care Prov ider Laura Chong APRN, CNP Unavailable + Laura Chong APRN, CNP Unavailable + Rogelio CramerRoberto Unavailable [phone] Dat Zepeda MD Unavailable +[phone] Dat Zepeda MD Unavailable + Radha Jeter MD Unavailable Michael Martines MD Unavailable Encounter Details Date Type Department Care Team (Late st Contact Info) Description 07/09/2019 MyC Medical Advice [facility] Dermatology [address] [phone] Kenia Cruz, RAI Social History Tobacco Use Types Packs/Day Years Used Date Smoking Tobacco: Never Smokeless Tobacco: Never Alcohol Use Standard Drinks/Week Comments Yes 0 (1 standard drink = 0.6 oz pure alcohol) I think I need to discontinue this again-was self-medicating PHQ-2 Answer Date Recorded PHQ-2 Score 4 06/26/2019 Comments No Sex and Gender Information Value Date Recorded Sex Assigned at Female 03/08/2020 10:03 AM MERCHANDISING SPECIALIST Legal Sex Female 3:03 AM MERCHANDISING SPECIALIST Gender Identity Female 03/08/2020 10:03 AM MERCHANDISING SPECIALIST Sexual Orientation Choose not to disclose 2019 10:03 AM MERCHANDISING SPECIALIST documented as of this encounter Plan of Treatment Not on file documented as of this encounter Visit Diagnoses Not on filedocumented in this encounter Additional Health Concerns Assessment Noted Time PHQ-9 Depression Total Score: 12 020 9:18 AM CDT documented as of this encounter Care Teams Dobby Loom Chain Pegger Relationship Specialty Start Date End Date Mary Jain APRN CEMENT MASON [address] [place] [address] 741 [place] [address] PCP - General Nurse Practitioner 08/14/18 05/27/20 Laura Chong APRN CEMENT MASON [address] [place] [address] PCP - General Internal Medicine 05/28/20 Maegan Izaguirre PA-C [address] [phone] Assigned PCP 01/18/12 08/16/19 Minnie Berry NP [address] [phone] Nurse Practitioner Family Practice 06/25/19 Rafy Andrade MD 420 [facility] 284 [place] [address] Resident Primary Care - CC 06/25/19 Mary Jain APRN CEMENT MASON [address] [place] [address] [place] [address] 591575 Nurse Practitioner Nurse Practitioner 06/25/19 Jennifer Soares DO 1151 [place] [address] Assigned PCP 08/17/19 10/04/19 Rafy Andrade MD [address] [place] [address] 284 [place] [address] Assigned PCP 10/05/19 01/17/20 Mary Jain APRN CEMENT MASON 420 [facility] 741 [place], [place] [address]75 Assigned PCP 01/18/20 05/29/20 Gavi Vega MD [address] [place] [address] MD Ophthalmology 03/03/20 Gavi Vega MD [address] [place] [address] 242195 Assigned Surgical Provider 03/10/20 06/23/22 Laura Chong APRN CEMENT MASON [address] [place] [address] 223005 Assigned PCP 06/27/20 Laura Chong APRN CEMENT MASON [address] [place] [address] 185375 Assigned PCP 05/30/20 06/26/20 Rogelio Cramer DPM [address] [place] [address] 305165 Assigned Musculoskeletal Provider 02/27/21 08/18/22 Dat Zepeda MD [address] [address] Dermatology 01/13/22 11/21/23 Dat Zepeda MD [address] [address] Assigned Surgical Provider 06/24/22 Radha Jeter MD [address] [place] [address] 702845 Dermatology 08/30/23 Michael Martines MD [address] [place] [address] 867860 Dermatology 11/22/23 documented as of this encounter
--- OUTSIDE RECORDS SUMMARY | 2024-04-27 12:26 | XMS_ITS | Encounter Summary ---
Author Organization [place] Address [address] [place] [address] Care Team Providers Care Critical Care Paramedic Name Role Phone Maegan Izaguirre PA-C Primary Care Provider + Maegan Izaguirre PA-C Unavailable [phone] Maegan Izaguirre PA-C Unavailable Minnie Berry NP Unavailable [phone] Rafy Andrade MD Unavailable [phone] Mary Jain APRN MORTGAGE LOAN PROCESSING CLERK Unavailable AnthonyJennifer dial DO Unavailable Rafy Andrade MD Unavailable +[phone] Mary Jain APRN, CNP Primary Care Provide r Mary Jain APRN MORTGAGE LOAN PROCESSING CLERK Unavailable Gavi Vega MD Unavailable + Gavi Vega MD Unavailable + Laura Chong APRN, CNP Primary Care Prov ider Laura Chong APRN MORTGAGE LOAN PROCESSING CLERK Unavailable + Laura Chong Jade CASANOVA MORTGAGE LOAN PROCESSING CLERK Unavailable + Rogelio CramerM Unavailable + Dat Zepeda MD Unavailable + Dat Zepeda MD Unavailable + Radha Jeter MD Unavailable Michael Martines MD Unavailable Reason for Visit * Reason Onset Date Comments Patient Request for Note/Letter 09/04/2016 MyChart Communication 09/04/2016 Encounter Details Date Type Department Care Team (Late st Contact Info) Description 09/04/2016 MyC Medical Advice [address] [address] Maegan Izaguirre PA-C [address] [phone] Patient Request for Note/Letter; Parveen Rodriguez.. Social History Tobacco Use Types Packs/Day Years Used Date Smoking Tobacco: Never Smokeless Tobacco: Never Alcohol Use Standard Drinks/Week Comments Yes 0 (1 standard drink = 0.6 oz pure alcohol) I think I need to discontinue this again-was self-medicating Comments No Sex and Gender Information Value Date Recorded Sex Assigned at Female 03/08/2020 10:03 AM LEASING MACHINE TENDER Legal Sex Female 3:03 AM LEASING MACHINE TENDER Gender Identity Female 03/08/2020 10:03 AM LEASING MACHINE TENDER Sexual Orientation Choose not to disclose 2019 10:03 AM LEASING MACHINE TENDER documented as of this encounter Miscellaneous Notes * Telephone Encounter - Ethan Shoemaker RN - 09/04/2016 4:17 PM CDT Letter started. Ethan Shoemaker RN documented in this encounter Plan of Treatment Not on file documented as of this encounter Visit Diagnoses Not on filedocumented in this encounter Additional Health Concerns Assessment Noted Time PHQ-9 Depression Total Score: 20 017 7:04 AM CDT documented as of this encounter Care Teams Critical Care Paramedic Relationship Specialty Start Date End Date Maegan Izaguirre PA-C PCP - General 02/24/09 08/13/18 Maegan Izaguirre PA-C [place] [id number] [address] [phone] PCP - Assigned PCP 10/18/09 06/18/18 Mary Jain APRN MORTGAGE LOAN PROCESSING CLERK 420 [facility] [place] [facility] 741 [place], [place] [address] PCP - General Nurse Practitioner 08/14/18 05/27/20 Laura Chong APRN MORTGAGE LOAN PROCESSING CLERK 909 [place] [address] PCP - General Internal Medicine 05/28/20 Maegan Izaguirre PA-C [address] [phone] Assigned PCP 01/18/12 08/16/19 Minnie Berry NP [address] [phone] Nurse Practitioner Family Practice 06/25/19 Rafy Andrade MD 420 [facility] 284 [place], [place] [phone] Resident Primary Care - CC 06/25/19 Mary Jain APRN MORTGAGE LOAN PROCESSING CLERK [address] [place] [address] Nurse Practitioner Nurse Practitioner 06/25/19 Jennifer Soares DO [address] [place] [address] Assigned PCP 08/17/19 10/04/19 Rafy Andrade MD [address] [place] [address] Assigned PCP 10/05/19 01/17/20 Mary Jain APRN MORTGAGE LOAN PROCESSING CLERK [address] [place] [address] Assigned PCP 01/18/20 05/29/20 Gavi Vega MD [address] [place] [address] MD Ophthalmology 03/03/20 Gavi Vega MD 909 [place] [address] Assigned Surgical Provider 03/10/20 06/23/22 Laura Chong APRN MORTGAGE LOAN PROCESSING CLERK [address] [place] [address] Assigned PCP 06/27/20 Laura Chong APRN MORTGAGE LOAN PROCESSING CLERK [address] [place] [address] Assigned PCP 05/30/20 06/26/20 Rogelio Cramer DPM [address] [place] [address] Assigned Musculoskeletal Provider 02/27/21 08/18/22 Dat Zepeda MD [address] [address] Dermatology 01/13/22 11/21/23 Dat Zepeda MD [address] [address] Assigned Surgical Provider 06/24/22 Radha Jeter MD [address] [place] [address] Dermatology 08/30/23 Michael Martines MD [address] [place] [address] Dermatology 11/22/23 documented as of this encounter
--- OUTSIDE RECORDS SUMMARY | 2024-04-27 12:26 | XMS_ITS | Encounter Summary ---
Author Organization [facility] Address [address] [place] [address] Care Team Providers Care Mechanical Supervisor Name Role Phone Maegan Izaguirre PA-C Primary Care Provider + Maegan Izaguirre PA-C Unavailable [phone] Maegan Izaguirre PA-C Unavailable Minnie Berry NP Unavailable [phone] Rafy Andrade MD Unavailable [phone] Mary Jain APRN KILN CLEANER Unavailable AnthonyJennifer dial DO Unavailable Rafy Andrade MD Unavailable [phone] Mary Jain APRN, CNP Primary Care Provide r Mary Jain APRN KILN CLEANER Unavailable [phone] Gavi Vega MD Unavailable + Gavi Vega MD Unavailable + Laura Chong APRN, CNP Primary Care Prov ider Laura Chong APRN KILN CLEANER Unavailable + Castillo Laura Hansen APRN KILN CLEANER Unavailable + Rogelio CramerM Unavailable + Dat Zepeda MD Unavailable + Dat Zepeda MD Unavailable + Radha Jeter MD Unavailable Michael Martines MD Unavailable Encounter Details Date Type Department Care Team (Late st Contact Info) Description 06/19/2016 [facility] Medical Advice [address] [phone] Elina Michele Social History Tobacco Use Types Packs/Day Years Used Date Smoking Tobacco: Never Smokeless Tobacco: Never Alcohol Use Standard Drinks/Week Comments Yes 0 (1 standard drink = 0.6 oz pur e alcohol) Currently none Comments No Sex and Gender Information Value Date Recorded Sex Assigned at Female 03/08/2020 10:03 AM X RAY TECH Legal Sex Female 3:03 AM X RAY TECH Gender Identity Female 03/08/2020 10:03 AM X RAY TECH Sexual Orientation Choose not to disclose 2019 10:03 AM X RAY TECH documented as of this encounter Plan of Treatment Not on file documented as of this encounter Visit Diagnoses Not on filedocumented in this encounter Additional Health Concerns Assessment Noted Time PHQ-9 Depression Total Score: 7 05/19/19 17 7:18 AM X RAY TECH documented as of this encounter Care Teams Mechanical Supervisor Relationship Specialty Start Date End Date Maegan Izaguirre PA-C PCP - General 02/24/09 08/13/18 Maegan Izaguirre PA-C [address] [phone] PCP - Assigned PCP 10/18/09 06/18/18 Mary Jain APRN KILN CLEANER 420 [facility] 741 [place] [address] PCP - General Nurse Practitioner 08/14/18 05/27/20 Laura Chong APRN KILN CLEANER 909 [place], [place] [address] PCP - General Internal Medicine 05/28/20 Maegan Izaguirre PA-C [address] [phone] Assigned PCP 01/18/12 08/16/19 Minnie Berry NP [address] [phone] Nurse Practitioner Family Practice 06/25/19 Rafy Andrade MD [address] [place] [address] Resident Primary Care - CC 06/25/19 Mary Jain APRN KILN CLEANER [address] [place] [address] 741 [place] [address] Nurse Practitioner Nurse Practitioner 06/25/19 Jennifer Soares DO [address] [place] [address] [id number] Assigned PCP 08/17/19 10/04/19 Rafy Andrade MD [address] [place] [address] 284 [place], [place] 176555 Assigned PCP 10/05/19 01/17/20 Mary Jain APRN KILN CLEANER [address] [place] [address] 741 [place] [address] Assigned PCP 01/18/20 05/29/20 Gavi Vega MD [address] [place] [address] Ophthalmology 03/03/20 Gavi Vega MD [address] [place] [address] Assigned Surgical Provider 03/10/20 06/23/22 Laura Chong APRN KILN CLEANER [address] [place] [address] Assigned PCP 06/27/20 Laura Chong APRN KILN CLEANER [address] [place] [address] Assigned PCP 05/30/20 06/26/20 Rogelio Cramer DPM [address] [place] [address] Assigned Musculoskeletal Provider 02/27/21 08/18/22 Dat Zepeda MD [facility] 516 [facility] 98 [place] [address] Dermatology 01/13/22 11/21/23 Dta Zepeda MD [facility] 516 [facility] 98 [place] [address] Assigned Surgical Provider 06/24/22 Radha Jeter MD [address] [place] [address] Dermatology 08/30/23 Michael Martines MD [address] [place] [address] Dermatology 11/22/23 documented as of this encounter
--- OUTSIDE RECORDS SUMMARY | 2024-04-27 12:27 | XMS_ITS | Encounter Summary ---
Author Organization [facility] Address [address] [place] [address] Care Team Providers Care Gate Manager Name Role Phone Maegan Izaguirre PA-C Primary Care Provider + Maegan Izaguirre PA-C Unavailable Maegan Izaguirre PA-C Unavailable Minnie Berry NP Unavailable [phone] Rafy Andrade MD Unavailable [phone] Mary Jain APRN CONCRETE MIXER OPERATOR HELPER Unavailable [phone] AnthonyJennifer dial DO Unavailable Rafy Andrade MD Unavailable [phone] Mary Jain APRN, CNP Primary Care Provide r Mary Jain APRN CONCRETE MIXER OPERATOR HELPER Unavailable Gavi Vega MD Unavailable + Gavi Vega MD Unavailable + Laura Chong APRN, CNP Primary Care Prov ider Laura Chong APRN CONCRETE MIXER OPERATOR HELPER Unavailable + Laura Chong APRN CONCRETE MIXER OPERATOR HELPER Unavailable + Rogelio CramerM Unavailable + Dat Zepeda MD Unavailable + Dat Zepeda MD Unavailable + Radha Jeter MD Unavailable Michael Martines MD Unavailable Encounter Details Date Type Department Care Team (Late st Contact Info) Description 10/21/[address] [phone] [facility] Social History Tobacco Use Types Packs/Day Years Used Date Smoking Tobacco: Never Smokeless Tobacco: Never Alcohol Use Standard Drinks/Week Comments Yes 0 (1 standard drink = 0.6 oz pur e alcohol) 9 glasses of wine per week Comments No Sex and Gender Information Value Date Recorded Sex Assigned at Female 03/08/2020 10:03 AM SPECTROGRAPH OPERATOR Legal Sex Female 3:03 AM SPECTROGRAPH OPERATOR Gender Identity Female 03/08/2020 10:03 AM SPECTROGRAPH OPERATOR Sexual Orientation Choose not to disclose 2019 10:03 AM SPECTROGRAPH OPERATOR documented as of this encounter Plan of Treatment Not on file documented as of this encounter Visit Diagnoses Not on filedocumented in this encounter Care Teams Gate Manager Relationship Specialty Start Date End Date Maegan Izaguirre PA-C PCP - General 02/24/09 08/13/18 Maegan Izaguirre PA-C [address] [place] [address] PCP - Assigned PCP 10/18/09 06/18/18 Mary Jain APRN CONCRETE MIXER OPERATOR HELPER [address] [place] [address] 741 [place] [address] PCP - General Nurse Practitioner 08/14/18 05/27/20 Laura Chong APRN CONCRETE MIXER OPERATOR HELPER 909 [place] [address] PCP - General Internal Medicine 05/28/20 Maegan Izaguirre PA-C [address] [phone] Assigned PCP 01/18/12 08/16/19 Minnie Berry NP [address] [phone] Nurse Practitioner Family Practice 06/25/19 Rafy Andrade MD 420 [facility] 284 [place], [place] [address] Resident Primary Care - CC 06/25/19 Mary Jain APRN CONCRETE MIXER OPERATOR HELPER 420 [facility] 741 [place] [address] Nurse Practitioner Nurse Practitioner 06/25/19 Jennifer Soares DO [address] [place] [address] Assigned PCP 08/17/19 10/04/19 Rafy Andrade MD 420 [facility] 284 [place] [address] Assigned PCP 10/05/19 01/17/20 Mary Jain COOKER CASING CONCRETE MIXER OPERATOR HELPER [address] [place] [address] 741 [place] [address] Assigned PCP 01/18/20 05/29/20 Gavi Vega MD [facility] [place] [address] Ophthalmology 03/03/20 Gavi Vega MD [address] [place] [address] 757395 Assigned Surgical Provider 03/10/20 06/23/22 Laura Chong APRN CONCRETE MIXER OPERATOR HELPER [address] [place] [address] Assigned PCP 06/27/20 Laura Chong APRN CONCRETE MIXER OPERATOR HELPER [address] [place] [address] 298775 Assigned PCP 05/30/20 06/26/20 Rogelio Cramer DPM [address] [place] [address] [id number] Assigned Musculoskeletal Provider 02/27/21 08/18/22 Dat Zepeda MD [address] [address] Dermatology 01/13/22 11/21/23 Dat Zepeda MD [address] [address] Assigned Surgical Provider 06/24/22 Radha Jeter MD [address] [place] [address] 251015 Dermatology 08/30/23 Michael Martines MD [address] [place] [address] 119900 Dermatology 11/22/23 documented as of this encounter
--- OUTSIDE RECORDS SUMMARY | 2024-04-27 12:27 | XMS_ITS | Encounter Summary ---
Author Organization [place] Address [address] [place] [address] Care Team Providers Care Umbrella Tipper Hand Name Role Phone Maegan Izaguirre PA-C Primary Care Provider + Maegan Izaguirre PA-C Unavailable Maegan Izaguirre PA-C Unavailable [phone] Minnie Berry NP Unavailable [phone] Rafy Andrade MD Unavailable [phone] Mary Jain APRN CANT HOOKER Unavailable AnthonyJennifer dial DO Unavailable Rafy Andrade MD Unavailable [phone] Mary Jain APRN, CNP Primary Care Provide r Mary Jain APRN CANT HOOKER Unavailable Gavi Vega MD Unavailable + Gavi Vega MD Unavailable + Laura Chong APRN, CNP Primary Care Prov ider Laura Chong APRN CANT HOOKER Unavailable + Jennifer Chongnie Jade CASANOVA CANT HOOKER Unavailable + Kosta Crameron Aren DPM Unavailable + Dat Zepeda MD Unavailable + Dat Zepeda MD Unavailable + Radha Jeter MD Unavailable Michael Martines MD Unavailable Reason for Visit * Reason Onset Date Comments Patient Request 07/14/2015 MyChart Communication 07/14/2015 Encounter Details Date Type Department Care Team (Late st Contact Info) Description 07/14/2015 [facility] Medical [address] [phone] Maegan Izaguirre PA-C [address] [phone] Patient Request; [employer] Social History Tobacco Use Types Packs/Day Years Used Date Smoking Tobacco: Never Smokeless Tobacco: Never Alcohol Use Standard Drinks/Week Comments Yes 0 (1 standard drink = 0.6 oz pur e alcohol) 9 glasses of wine per week Comments No Sex and Gender Information Value Date Recorded Sex Assigned at Female 03/08/2020 10:03 AM DEMO COORDINATOR Legal Sex Female 3:03 AM DEMO COORDINATOR Gender Identity Female 03/08/2020 10:03 AM DEMO COORDINATOR Sexual Orientation Choose not to disclose 2019 10:03 AM DEMO COORDINATOR documented as of this encounter Plan of Treatment Not on file documented as of this encounter Visit Diagnoses Not on filedocumented in this encounter Care Teams Umbrella Tipper Hand Relationship Specialty Start Date End Date Maegan Izaguirre PA-C PCP - General 02/24/09 08/13/18 Maegan Izaguirre PA-C [address] [phone] PCP - Assigned PCP 10/18/09 06/18/18 Mary Jain APRN CANT HOOKER 420 [facility] 741 [place], [place] [address] PCP - General Nurse Practitioner 08/14/18 05/27/20 Laura Chong APRN CANT HOOKER [address] [place] [address] 125625 PCP - General Internal Medicine 05/28/20 Maegan Izaguirre PA-C [address] [phone] Assigned PCP 01/18/12 08/16/19 Minnie Berry NP [address] [phone] Nurse Practitioner Family Practice 06/25/19 Rafy Andrade MD 420 [facility] 284 [place] [address] Resident Primary Care - CC 06/25/19 Mary Jain APRN CANT HOOKER 420 [facility] [address] [place] [address] 412995 Nurse Practitioner Nurse Practitioner 06/25/19 Jennifer Soares DO [address] [place] [address] Assigned PCP 08/17/19 10/04/19 Rafy Andrade MD 420 [facility] 284 [place], [place] [address] Assigned PCP 10/05/19 01/17/20 Mary Jain APRN CANT HOOKER [address] [place] [address] 741 [place] [address] Assigned PCP 01/18/20 05/29/20 Gavi Vega MD [address] [place] [address] MD [facility] 03/03/20 Gavi Vega MD [address] [place] [address] Assigned Surgical Provider 03/10/20 06/23/22 Laura Chong APRN CANT HOOKER [address] [place] [address] Assigned PCP 06/27/20 Laura Chong APRN CANT HOOKER [address] [place] [address] Assigned PCP 05/30/20 06/26/20 Rogelio Cramer DPM [address] [place] [address] Assigned Musculoskeletal Provider 02/27/21 08/18/22 Dat Zepeda MD [facility] [address] [address] Dermatology 01/13/22 11/21/23 Dat Zepeda MD [address] [address] Assigned Surgical Provider 06/24/22 Radha Jeter MD [address] [place] [address] Dermatology 08/30/23 Michael Martines MD [address] [place] [address] Dermatology 11/22/23 documented as of this encounter
--- OUTSIDE RECORDS SUMMARY | 2024-04-27 12:27 | XMS_ITS | Encounter Summary ---
Author Organization [facility] Address [address] [place] [address] Care Team Providers Care Correspondence Analyst Name Role Phone Maegan Izaguirre PA-C Primary Care Provider + Maegan Izaguirre PA-C Unavailable Maegan Izaguirre PA-C Unavailable [phone] Minnie Berry NP Unavailable [phone] Rafy Andrade MD Unavailable [phone] Mary Jain APRN STONE GLUER Unavailable [phone] AnthonyJennifer dial DO Unavailable Rafy Andrade MD Unavailable [phone] Mary Jain APRN, CNP Primary Care Provide r Mary Jain APRN STONE GLUER Unavailable Gavi Vega MD Unavailable + Gavi Vega MD Unavailable + Laura Chong APRN, CNP Primary Care Prov ider Laura Chong APRN STONE GLUER Unavailable + Laura Chong Jade CASANOVA STONE GLUER Unavailable + Rogelio Cramer DPM Unavailable + Dat Zepeda MD Unavailable + Dat Zepeda MD Unavailable + Radha Jeter MD Unavailable Michael Martines MD Unavailable Reason for Visit * Reason Onset Date Comments MyChart Communication 01/29/2014 Encounter Details Date Type Department Care Team (Late st Contact Info) Description 01/29/2014 My[facility] Medical Advice [address] [phone] Maegan Izaguirre PA-C [address] [phone] MyChart Communication Social History Tobacco Use Types Packs/Day Years Used Date Smoking Tobacco: Never Smokeless Tobacco: Never Alcohol Use Standard Drinks/Week Comments Yes 0 (1 standard drink = 0.6 oz pur e alcohol) 9 glasses of wine per week Comments No Sex and Gender Information Value Date Recorded Sex Assigned at Female 03/08/2020 10:03 AM PAD MAKING MACHINE OPERATOR Legal Sex Female 3:03 AM PAD MAKING MACHINE OPERATOR Gender Identity Female 03/08/2020 10:03 AM PAD MAKING MACHINE OPERATOR Sexual Orientation Choose not to disclose 2019 10:03 AM PAD MAKING MACHINE OPERATOR documented as of this encounter Miscellaneous Notes * Telephone Encounter - Ari Lyman - 01/30/2014 9:00 AM CDT See StartMe message below. Thank you, Ari Lyman Rack Pusher documented in this encounter Plan of Treatment Not on file documented as of this encounter Visit Diagnoses Not on filedocumented in this encounter Care Teams Correspondence Analyst Relationship Specialty Start Date End Date Maegan Izaguirre PA-C PCP - General 02/24/09 08/13/18 Maegan Izaguirre PA-C [address] [phone] PCP - Assigned PCP 10/18/09 06/18/18 Mray Jain APRN STONE GLUER 420 [facility] 741 [place], [place] [address] PCP - General Nurse Practitioner 08/14/18 05/27/20 Laura Cohng APRN STONE GLUER 909 [place], [place] [phone] PCP - General Internal Medicine 05/28/20 Maegan Izaguirre PA-C [address] [phone] Assigned PCP 01/18/12 08/16/19 Minnie Berry NP [address] [phone] Nurse Practitioner Family Practice 06/25/19 Rafy Andrade MD 420 [facility] 284 [place], [place] [address] Resident Primary Care - CC 06/25/19 Mary Jain APRN STONE GLUER 420 [facility] 741 [place] [address] Nurse Practitioner Nurse Practitioner 06/25/19 Jennifer Soares DO 1151 [place] [address] Assigned PCP 08/17/19 10/04/19 Rafy Andrade MD 420 [facility] 284 [place] [address] Assigned PCP 10/05/19 01/17/20 Mary Jain APRN STONE GLUER [address] [place] [address] 741 [place] [address] Assigned PCP 01/18/20 05/29/20 Gavi Vega MD [facility] [address] [address] Ophthalmology 03/03/20 Gavi Vega MD [address] [place] [address] Assigned Surgical Provider 03/10/20 06/23/22 Laura Chong APRN STONE GLUER [address] [place] [address] Assigned PCP 06/27/20 Laura Chong APRN STONE GLUER [address] [place] [address] Assigned PCP 05/30/20 06/26/20 Rogelio Cramer DPM [facility] [place] [address] Assigned Musculoskeletal Provider 02/27/21 08/18/22 Dat Zepeda MD [address] [address] Dermatology 01/13/22 11/21/23 Dat Zepeda MD [address] [address] Assigned Surgical Provider 06/24/22 Radha Jeter MD [address] [place] [address] Dermatology 08/30/23 Michael Martines MD [address] [address] Dermatology 11/22/23 documented as of this encounter
--- OUTSIDE RECORDS SUMMARY | 2024-04-27 12:27 | XMS_ITS | Encounter Summary ---
Author Organization [facility] Address [address] [place] [address] Care Team Providers Care First Coat Operator Name Role Phone Maegan Izaguirre PA-C Primary Care Provider + Maegan Izaguirre PA-C Unavailable [phone] Maegan Izaguirre PA-C Unavailable [phone] Minnie Berry NP Unavailable [phone] Rafy Andrade MD Unavailable [phone] Mary Jain APRN RES COUNSELOR Unavailable AnthonyJennifer dial DO Unavailable Rafy Andrade MD Unavailable [phone] Mary Jain APRN, CNP Primary Care Provide r Mary Jain APRN RES COUNSELOR Unavailable [phone] Gavi Vega MD Unavailable + Gavi Vega MD Unavailable + Laura Chong APRN, CNP Primary Care Prov ider Laura Chong APRN RES COUNSELOR Unavailable + Laura Chong Jade CASANOVA RES COUNSELOR Unavailable + Kosta Crameron Aren DPM Unavailable + Dat Zepeda MD Unavailable + Dat Zepeda MD Unavailable + Radha Jeter MD Unavailable Michael Martines MD Unavailable Reason for Visit * Reason Onset Date Comments Patient/info Update 08/31/2014 MyChart Communication 08/31/2014 Encounter Details Date Type Department Care Team (Late st Contact Info) Description 08/31/2014 MyC Medical Advice [address] [address] Maegan Izaguirre PA-C [address] [phone] Patient/info Update; [employer] Communication Social History Tobacco Use Types Packs/Day Years Used Date Smoking Tobacco: Never Smokeless Tobacco: Never Alcohol Use Standard Drinks/Week Comments Yes 0 (1 standard drink = 0.6 oz pur e alcohol) 9 glasses of wine per week Comments No Sex and Gender Information Value Date Recorded Sex Assigned at Female 03/08/2020 10:03 AM FLOOR COVERINGS INSTALLER Legal Sex Female 3:03 AM FLOOR COVERINGS INSTALLER Gender Identity Female 03/08/2020 10:03 AM FLOOR COVERINGS INSTALLER Sexual Orientation Choose not to disclose 2019 10:03 AM FLOOR COVERINGS INSTALLER documented as of this encounter Plan of Treatment Not on file documented as of this encounter Visit Diagnoses Not on filedocumented in this encounter Care Teams First Coat Operator Relationship Specialty Start Date End Date Maegan Izaguirre PA-C PCP - General 02/24/09 08/13/18 Maegan Izaguirre PA-C [address] [address] PCP - Assigned PCP 10/18/09 06/18/18 Mary Jain APRN RES COUNSELOR [facility] 7[address] [place], [place] [address] PCP - General Nurse Practitioner 08/14/18 05/27/20 Laura Chong APRN RES COUNSELOR 909 [place], [place] 0380[address] PCP - General Internal Medicine 05/28/20 Maegan Izaguirre PA-C [address] [address] Assigned PCP 01/18/12 08/16/19 Minnie Berry NP [address] [phone] Nurse Practitioner Family Practice 06/25/19 Rafy Andrade MD [facility] 284 [place] [address] Resident Primary Care - CC 06/25/19 Mary Jain APRN RES COUNSELOR [facility] [address] [place] [address] 005275 Nurse Practitioner Nurse Practitioner 06/25/19 Jennifer Soares DO [address] [place] [address] Assigned PCP 08/17/19 10/04/19 Rafy Andrade MD [address] [place] [address] 284 [place] [address] Assigned PCP 10/05/19 01/17/20 Mary Jain APRN RES COUNSELOR [address] [place] [address] 741 [place] [address] Assigned PCP 01/18/20 05/29/20 Gavi Vega MD [facility] [place] [address] MD Ophthalmology 03/03/20 Gavi Vega MD [address] [place] [address] Assigned Surgical Provider 03/10/20 06/23/22 Laura Chong APRN RES COUNSELOR [address] [place] [address] Assigned PCP 06/27/20 Laura Chong APRN RES COUNSELOR [address] [place] [address] Assigned PCP 05/30/20 06/26/20 Rogelio Cramer DPM [address] [place] [address] Assigned Musculoskeletal Provider 02/27/21 08/18/22 Dat Zepeda MD [address] [address] Dermatology 01/13/22 11/21/23 Dat Zepeda MD [address] [address] Assigned Surgical Provider 06/24/22 Radha Jeter MD [address] [place] [address] Dermatology 08/30/23 Michael Martines MD [address] [address] Dermatology 11/22/23 documented as of this encounter
--- OUTSIDE RECORDS SUMMARY | 2024-04-27 12:27 | XMS_ITS | Encounter Summary ---
Author Organization [facility] Address [address] [place] [address] Care Team Providers Care Sheriff Name Role Phone Maegan Izaguirre PA-C Primary Care Provider + Maegan Izaguirre PA-C Unavailable Maegan Izaguirre PA-C Unavailable Minnie Berry NP Unavailable [phone] Rafy Andrade MD Unavailable [phone] Mary Jain APRN CARE TRANSITIONS NURSE Unavailable [phone] AnthonyJennifer dial DO Unavailable Rafy Andrade MD Unavailable [phone] Mary Jain APRN, CNP Primary Care Provide r Mary Jain APRN CARE TRANSITIONS NURSE Unavailable Gavi Vega MD Unavailable + Gavi Vega MD Unavailable + Laura Chong APRN, CNP Primary Care Prov ider Laura Chong APRN CARE TRANSITIONS NURSE Unavailable + Jennifer Chongnie Jade CASANOVA CARE TRANSITIONS NURSE Unavailable + Rogelio Cramer DPM Unavailable + Dat Zepeda MD Unavailable + aDt Zepeda MD Unavailable + Radha Jeter MD Unavailable Michael Martines MD Unavailable Reason for Visit * Reason Onset Date Comments Contraception 01/25/2016 MyChart Communication 01/25/2016 Encounter Details Date Type Department Care Team (Late st Contact Info) Description 01/25/2016 MyC Medical Advice [address] [phone] Maegan Izaguirre PA-C [address] [address] Contraception; MyChart Communication Social History Tobacco Use Types Packs/Day Years Used Date Smoking Tobacco: Never Smokeless Tobacco: Never Alcohol Use Standard Drinks/Week Comments Yes 0 (1 standard drink = 0.6 oz pur e alcohol) 9 glasses of wine per week Comments No Sex and Gender Information Value Date Recorded Sex Assigned at Female 03/08/2020 10:03 AM CONCRETE FORM SETTER AND FINISHER Legal Sex Female 3:03 AM CONCRETE FORM SETTER AND FINISHER Gender Identity Female 03/08/2020 10:03 AM CONCRETE FORM SETTER AND FINISHER Sexual Orientation Choose not to disclose 2019 10:03 AM CONCRETE FORM SETTER AND FINISHER documented as of this encounter Plan of Treatment Not on file documented as of this encounter Visit Diagnoses Diagnosis Encounter for initial prescription of other contraceptives- Primary documented in this encounter Additional Health Concerns Assessment Noted Time PHQ-9 Depression Total Score: 12 016 7:22 AM CDT documented as of this encounter Care Teams Sheriff Relationship Specialty Start Date End Date Maegan Izaguirre PA-C PCP - General 02/24/09 08/13/18 Maegan Izaguirre PA-C [address] [address] PCP - Assigned PCP 10/18/09 06/18/18 Mary Jain APRN CARE TRANSITIONS NURSE 420 [facility] [address] [place] [address] 718025 PCP - General Nurse Practitioner 08/14/18 05/27/20 Laura Chong APRN CARE TRANSITIONS NURSE 909 [place], [place] 551135 PCP - General Internal Medicine 05/28/20 aMegan Izaguirre PA-C [address] [address] Assigned PCP 01/18/12 08/16/19 Minnie Berry NP [address] [phone] Nurse Practitioner Family Practice 06/25/19 Rafy Andrade MD 420 [facility] 284 [place], [place] 8867[address] Resident Primary Care - CC 06/25/19 Mary Jain APRN CARE TRANSITIONS NURSE 420 [facility] 741 [place], [place] 5289[address] Nurse Practitioner Nurse Practitioner 06/25/19 Jennifer Soares DO [address]1 [place] [address] Assigned PCP 08/17/19 10/04/19 Rafy Andrade MD 420 [facility] 284 [place] [address] Assigned PCP 10/05/19 01/17/20 Mary Jain APRN CARE TRANSITIONS NURSE 420 [facility] 741 [place] [address] Assigned PCP 01/18/20 05/29/20 Gavi Vega MD [address] [place] [address] MD Ophthalmology 03/03/20 Gavi Vega MD [address] [place] [address] 379515 Assigned Surgical Provider 03/10/20 06/23/22 Laura Chong APRN CARE TRANSITIONS NURSE [address] [place] [address] 798015 Assigned PCP 06/27/20 Laura Chong APRN CARE TRANSITIONS NURSE [address] [place] [address] 898195 Assigned PCP 05/30/20 06/26/20 Rogelio Cramer DPM [address] [place] [address] 390325 Assigned Musculoskeletal Provider 02/27/21 08/18/22 Dat Zepeda MD [address] [address] Dermatology 01/13/22 11/21/23 Dat Zepeda MD [address] [address] Assigned Surgical Provider 06/24/22 Radha Jeter MD [address] [place] [address] 695395 Dermatology 08/30/23 Michael Martines MD [address] [place] [address] 602100 Dermatology 11/22/23 documented as of this encounter
--- OUTSIDE RECORDS SUMMARY | 2024-04-27 12:27 | XMS_ITS | Encounter Summary ---
Author Organization [facility] Address [address] [place] [address] Care Team Providers Care Aircraft Power Plant Assembler Name Role Phone Maegan Izaguirre PA-C Primary Care Provider + Maegan Izaguirre PA-C Unavailable Maegan Izaguirre PA-C Unavailable [phone] Minnie Berry NP Unavailable [phone] Rafy Andrade MD Unavailable [phone] Mary Jain APRN TUBE INSPECTOR Unavailable AnthonyJennifer dial DO Unavailable Rafy Andrade MD Unavailable [phone] Mary Jain APRN, CNP Primary Care Provide r Mary Jain APRN TUBE INSPECTOR Unavailable [phone] Gavi Vega MD Unavailable + Gavi Vega MD Unavailable + Laura Chong APRN, CNP Primary Care Prov ider Laura Chong APRN TUBE INSPECTOR Unavailable + Laura Chong Jade CASANOVA TUBE INSPECTOR Unavailable + Kosta Crameron Aren DPM Unavailable + Dat Zepeda MD Unavailable + Dat Zepeda MD Unavailable + Radha Jeter MD Unavailable Michael Martines MD Unavailable Reason for Visit * Reason Onset Date Comments Anxiety 10/19/2013 MyChart Communication 10/19/2013 Encounter Details Date Type Department Care Team (Late st Contact Info) Description 10/19/2013 MyC Medical Advice [address] [address] Maegan Izaguirre PA-C [address] [phone] Anxiety; MyChart Communication Social History Tobacco Use Types Packs/Day Years Used Date Smoking Tobacco: Never Smokeless Tobacco: Never Alcohol Use Standard Drinks/Week Comments Yes 0 (1 standard drink = 0.6 oz pur e alcohol) 9 glasses of wine per week Comments No Sex and Gender Information Value Date Recorded Sex Assigned at Female 03/08/2020 10:03 AM CLINICAL PATHOLOGIST Legal Sex Female 3:03 AM CLINICAL PATHOLOGIST Gender Identity Female 03/08/2020 10:03 AM CLINICAL PATHOLOGIST Sexual Orientation Choose not to disclose 2019 10:03 AM CLINICAL PATHOLOGIST documented as of this encounter Miscellaneous Notes * Telephone Encounter - Mahi Cee RN - 10/20/2013 9:21 AM CDT Patient states in message she will be calling to schedule an appointment. FYI to PCP - to review message before she comes in. Mahi Cee RN October 20, 2013 9:22 AM [facility] Triage * Telephone Encounter - Kenia Lucero CMA - 10/20/2013 8:54 AM CDT RN, please review message below. Thank you. Kenia Lucero CMA ([facility]) documented in this encounter Plan of Treatment Not on file documented as of this encounter Visit Diagnoses Not on filedocumented in this encounter Care Teams Aircraft Power Plant Assembler Relationship Specialty Start Date End Date Maegan Izaguirre PA-C PCP - General 02/24/09 08/13/18 Maegan Izaguirre PA-C [address] [phone] PCP - Assigned PCP 10/18/09 06/18/18 Mary Jain APRN TUBE INSPECTOR 420 [facility] 741 [place], [place] 38[address] PCP - General Nurse Practitioner 08/14/18 05/27/20 Laura Chong APRN TUBE INSPECTOR [address] [place] [address] 706035 PCP - General Internal Medicine 05/28/20 Maegan Izaguirre PA-C [place] 583061 [address] [phone] Assigned PCP 01/18/12 08/16/19 Minnie Berry NP [place] 583061 [address] [phone] Nurse Practitioner Family Practice 06/25/19 Rafy Andrade MD [address] [place] [address] 284 [place] [address] Resident Primary Care - CC 06/25/19 Mary Jain APRN TUBE INSPECTOR [address] [place] [address] [place] [address] Nurse Practitioner Nurse Practitioner 06/25/19 Jennifer Soares DO [address] [place] [address] Assigned PCP 08/17/19 10/04/19 Rafy Andrade MD [address] [place] [address] 284 [place] [address] Assigned PCP 10/05/19 01/17/20 Mary Jain APRN TUBE INSPECTOR [address] [place] [address] Assigned PCP 01/18/20 05/29/20 Gavi Vega MD [address], [place] [address] Ophthalmology 03/03/20 Gavi Vega MD [address] [place] [address] Assigned Surgical Provider 03/10/20 06/23/22 Laura Chong APRN TUBE INSPECTOR [address] [place] [address] Assigned PCP 06/27/20 Laura Chong APRN CNP [address] [place] [address] Assigned PCP 05/30/20 06/26/20 Rogelio Cramer DPM [address] [place] [address] Assigned Musculoskeletal Provider 02/27/21 08/18/22 Dat Zepeda MD [address] [address] Dermatology 01/13/22 11/21/23 Dat Zepeda MD [address] [address] Assigned Surgical Provider 06/24/22 Radha Jeter MD [address] [place] [address] Dermatology 08/30/23 Michael Martines MD [address] [address] Dermatology 11/22/23 documented as of this encounter
--- OUTSIDE RECORDS SUMMARY | 2024-04-27 12:27 | XMS_ITS | Encounter Summary ---
Author Organization [facility] Address [address] [place] [address] Care Team Providers Care Applications Scientist Name Role Phone Maegan Izaguirre PA-C Primary Care Provider + Maegan Izaguirre PA-C Unavailable Maegan Izaguirre PA-C Unavailable [phone] Minnie Berry NP Unavailable [phone] Rafy Andrade MD Unavailable [phone] Mary Jain APRN OPTIMIZATION MANAGER Unavailable AnthonyJennifer dial DO Unavailable Rafy Andrade MD Unavailable [phone] Mary Jain APRN, CNP Primary Care Provide r Mary Jain APRN OPTIMIZATION MANAGER Unavailable Gavi Vega MD Unavailable + Gavi Vega MD Unavailable + Laura Chong APRN, CNP Primary Care Prov ider Laura Chong APRN OPTIMIZATION MANAGER Unavailable + [place] Laura Jade CASANOVA OPTIMIZATION MANAGER Unavailable + Rogelio CramerM Unavailable + Dat Zepeda MD Unavailable + Dat Zepeda MD Unavailable + Radha Jeter MD Unavailable Michael Martines MD Unavailable Reason for Visit * Reason Onset Date Comments Patient/info Update 04/21/2014 Anxiety Encounter Details Date Type Department Care Team (Late st Contact Info) Description 04/21/2014 [facility] [address] [address] Maegan Izaguirre PA-C [address] [phone] Patient/info Update (Anxiety) Social History Tobacco Use Types Packs/Day Years Used Date Smoking Tobacco: Never Smokeless Tobacco: Never Alcohol Use Standard Drinks/Week Comments Yes 0 (1 standard drink = 0.6 oz pur e alcohol) 9 glasses of wine per week Comments No Sex and Gender Information Value Date Recorded Sex Assigned at Female 03/08/2020 10:03 AM HEAD OF CYTOGENETICS Legal Sex Female 3:03 AM HEAD OF CYTOGENETICS Gender Identity Female 03/08/2020 10:03 AM HEAD OF CYTOGENETICS Sexual Orientation Choose not to disclose 2019 10:03 AM HEAD OF CYTOGENETICS documented as of this encounter Plan of Treatment Not on file documented as of this encounter Visit Diagnoses Not on filedocumented in this encounter Care Teams Applications Scientist Relationship Specialty Start Date End Date Maegan Izaguirre PA-C PCP - General 02/24/09 08/13/18 Maegan Izaguirre PA-C [address] [phone] PCP - Assigned PCP 10/18/09 06/18/18 Mary Jain APRN OPTIMIZATION MANAGER 420 [facility] 741 [place] [address] PCP - General Nurse Practitioner 08/14/18 05/27/20 Laura Chong APRN OPTIMIZATION MANAGER [address] [place] [address] 370785 PCP - General Internal Medicine 05/28/20 Maegan Izaguirre PA-C [address] [phone] Assigned PCP 01/18/12 08/16/19 Minnie Berry NP [address] [phone] Nurse Practitioner Family Practice 06/25/19 Rafy Andrade MD 420 [facility] 284 [place], [place] [address]255 Resident Primary Care - CC 06/25/19 Mary Jain, COSMETICIAN OPTIMIZATION MANAGER 420 [facility] 741 [place], [place] 06[address] Nurse Practitioner Nurse Practitioner 06/25/19 Jennifer Soares DO [facility]1 [place] [address] Assigned PCP 08/17/19 10/04/19 Rafy Andrade MD 420 [facility] 284 [place] [address] Assigned PCP 10/05/19 01/17/20 Mary Jain APRN OPTIMIZATION MANAGER 420 [facility] 741 [place] [address] Assigned PCP 01/18/20 05/29/20 Gavi Vega MD [address] [place] [address] MD Ophthalmology 03/03/20 Gavi Vega MD [address] [place] [address] 926245 Assigned Surgical Provider 03/10/20 06/23/22 Laura Chong APRN OPTIMIZATION MANAGER [address] [place] [address] Assigned PCP 06/27/20 Laura Chong APRN OPTIMIZATION MANAGER [address] [place] [address] Assigned PCP 05/30/20 06/26/20 Rogelio Cramer DPM [address] [place] [address] 876955 Assigned Musculoskeletal Provider 02/27/21 08/18/22 Dat Zepeda MD [facility] [address] [place] [address] [address] Dermatology 01/13/22 11/21/23 Dat Zepeda MD [facility] [address] [address] Assigned Surgical Provider 06/24/22 Radha Jeter MD [address] [place] [address] Dermatology 08/30/23 Michael Martines MD [address] [place] [address] Dermatology 11/22/23 documented as of this encounter
--- OUTSIDE RECORDS SUMMARY | 2024-04-27 12:27 | XMS_ITS | Encounter Summary ---
Author Organization [facility] Address [address] [place] [address] Care Team Providers Care Auricular Acupuncturist Name Role Phone Maegan Izaguirre PA-C Primary Care Provider + Maegan Izaguirre PA-C Unavailable Maegan Izaguirre PA-C Unavailable Minnie Berry NP Unavailable [phone] Rafy Andrade MD Unavailable [phone] Mary Jain APRN OPERATIONAL RISK CONSULTANT Unavailable AnthonyJennifer dial DO Unavailable Rafy Andrade MD Unavailable [phone] Mary Jain APRN, CNP Primary Care Provide r Mary Jain APRN OPERATIONAL RISK CONSULTANT Unavailable Gavi Vega MD Unavailable + Gavi Vega MD Unavailable + Laura Chong APRN, CNP Primary Care Prov ider Laura Chong APRN OPERATIONAL RISK CONSULTANT Unavailable + Laura Chong Jade CASANOVA OPERATIONAL RISK CONSULTANT Unavailable + Rogelio CramerM Unavailable + Dat Zepeda MD Unavailable + Dat Zepeda MD Unavailable + Radha Jeter MD Unavailable Michael Martines MD Unavailable Encounter Details Date Type Department Care Team (Late st Contact Info) Description 02/02/2016 [facility] [address] [address] Maegan Izaguirre PA-C [address] [phone] Social History Tobacco Use Types Packs/Day Years Used Date Smoking Tobacco: Never Smokeless Tobacco: Never Alcohol Use Standard Drinks/Week Comments Yes 0 (1 standard drink = 0.6 oz pur e alcohol) 9 glasses of wine per week Comments No Sex and Gender Information Value Date Recorded Sex Assigned at Female 03/08/2020 10:03 AM HEARING AID SPECIALIST Legal Sex Female 3:03 AM HEARING AID SPECIALIST Gender Identity Female 03/08/2020 10:03 AM HEARING AID SPECIALIST Sexual Orientation Choose not to disclose 2019 10:03 AM HEARING AID SPECIALIST documented as of this encounter Plan of Treatment Not on file documented as of this encounter Visit Diagnoses Not on filedocumented in this encounter Additional Health Concerns Assessment Noted Time PHQ-9 Depression Total Score: 12 016 7:22 AM CDT documented as of this encounter Care Teams Auricular Acupuncturist Relationship Specialty Start Date End Date Maegan Izaguirre PA-C PCP - General 02/24/09 08/13/18 Maegan Izaguirre PA-C [address] [address] PCP - Assigned PCP 10/18/09 06/18/18 Mary Jain APRN OPERATIONAL RISK CONSULTANT 420 [facility] 741 [place], [place] [address] PCP - General Nurse Practitioner 08/14/18 05/27/20 Laura Chong APRN OPERATIONAL RISK CONSULTANT [address] [place] [address] [id number] PCP - General Internal Medicine 05/28/20 Maegan Izaguirre PA-C [address] [address] Assigned PCP 01/18/12 08/16/19 Minnie Berry NP [address] [phone] Nurse Practitioner Family Practice 06/25/19 Rafy Andrade MD 420 [facility] 284 [place] [address] Resident Primary Care - CC 06/25/19 Mary Jain APRN OPERATIONAL RISK CONSULTANT 420 [facility] [address] [place] [address] 333155 Nurse Practitioner Nurse Practitioner 06/25/19 Jennifer Soares DO [address] [place] [address] Assigned PCP 08/17/19 10/04/19 Rafy Andrade MD 420 [facility] 284 [place], [place] 788785 Assigned PCP 10/05/19 01/17/20 Mary Jain APRN OPERATIONAL RISK CONSULTANT [address] [place] [address] 741 [place] [address] Assigned PCP 01/18/20 05/29/20 Gavi Vega MD [address] [place] [address] MD [facility] 03/03/20 Gavi Vega MD [address] [place] [address] Assigned Surgical Provider 03/10/20 06/23/22 Laura Chong APRN OPERATIONAL RISK CONSULTANT [address] [place] [address] Assigned PCP 06/27/20 Laura Chong APRN OPERATIONAL RISK CONSULTANT [address] [place] [address] Assigned PCP 05/30/20 06/26/20 Rogelio Cramer DPM [address] [place] [address] Assigned Musculoskeletal Provider 02/27/21 08/18/22 Dat Zepeda MD [facility] [address] [address] Dermatology 01/13/22 11/21/23 Dat Zepeda MD [address] [address] Assigned Surgical Provider 06/24/22 Radha Jeter MD [address] [place] [address] Dermatology 08/30/23 Michael Martines MD [address] [place] [address] Dermatology 11/22/23 documented as of this encounter
--- OUTSIDE RECORDS SUMMARY | 2024-04-27 12:27 | XMS_ITS | Encounter Summary ---
Author Organization [facility] Address [address] [place] [address] Care Team Providers Care Life Science Taxonomist Name Role Phone Maegan Izaguirre PA-C Primary Care Provider + Maegan Izaguirre PA-C Unavailable [phone] Maegan Izaguirre PA-C Unavailable Minnie Berry NP Unavailable [phone] Rafy Andrade MD Unavailable [phone] Mary Jain APRN SERVICE DESK ANALYST Unavailable AnthonyJennifer dial DO Unavailable Rafy Andrade MD Unavailable [phone] Mary Jain APRN, CNP Primary Care Provide r Mary Jain APRN SERVICE DESK ANALYST Unavailable Gavi Vega MD Unavailable + Gavi Vega MD Unavailable + Laura Chong APRN, CNP Primary Care Prov ider Laura Chong APRN SERVICE DESK ANALYST Unavailable + Laura Chong Jade CASANOVA SERVICE DESK ANALYST Unavailable + Rogelio Cramer DPM Unavailable + Dat Zepeda MD Unavailable + Dat Zepeda MD Unavailable + Radha Jeter MD Unavailable Michael Martines MD Unavailable Reason for Visit * Reason Onset Date Comments Abdominal Pain 04/19/2014 MyChart Communication 04/19/2014 Encounter Details Date Type Department Care Team (Late st Contact Info) Description 04/19/2014 MyC Medical Advice [address] [address] Maegan Izaguirre, PACamilleC [address] [address] Abdominal Pain; MyChart Communication Social History Tobacco Use Types Packs/Day Years Used Date Smoking Tobacco: Never Smokeless Tobacco: Never Alcohol Use Standard Drinks/Week Comments Yes 0 (1 standard drink = 0.6 oz pur e alcohol) 9 glasses of wine per week Comments No Sex and Gender Information Value Date Recorded Sex Assigned at Female 03/08/2020 10:03 AM PARADICHLOROBENZENE TENDER Legal Sex Female 3:03 AM PARADICHLOROBENZENE TENDER Gender Identity Female 03/08/2020 10:03 AM PARADICHLOROBENZENE TENDER Sexual Orientation Choose not to disclose 2019 10:03 AM PARADICHLOROBENZENE TENDER documented as of this encounter Miscellaneous Notes * Telephone Encounter - Fani Schwartz CMA - 04/20/2014 12:36 PM CST Script faxed to [facility] at [phone] [employer] message sent to patient. Fani Schwartz, Mold Designer (AAMA) DICHLOROBENZENE TENDER * Telephone Encounter - Maegan Izaguirre PA-C - 04/20/2014 10:39 AM PARADICHLOROBENZENE TENDER Script printed, please call or fax. ODILIA Melgar PA-C DICHLOROBENZENE TENDER documented in this encounter Plan of Treatment Not on file documented as of this encounter Visit Diagnoses Diagnosis Generalized anxiety disorder- Primary documented in this encounter Care Teams Life Science Taxonomist Relationship Specialty Start Date End Date Maegan Izaguirre PA-C PCP - General 02/24/09 08/13/18 Maegan Izaguirre PA-C [address] [phone] PCP - Assigned PCP 10/18/09 06/18/18 Mary Jain APRN SERVICE DESK ANALYST [address] [facility] [address] [place], [place] [address] PCP - General Nurse Practitioner 08/14/18 05/27/20 Laura Chong APRN SERVICE DESK ANALYST [address] [place] [address] PCP - General Internal Medicine 05/28/20 Maegan Izaguirre PA-C [address] [phone] Assigned PCP 01/18/12 08/16/19 Minnie Berry NP [address] [phone] Nurse Practitioner Family Practice 06/25/19 Rafy Andrade MD [address] [place] [address] [address] [place] [address] Resident Primary Care - CC 06/25/19 Mary Jain APRN SERVICE DESK ANALYST [address] [place] [address] Nurse Practitioner Nurse Practitioner 06/25/19 Jennifer Soares DO [address] [place] [address] [id number] Assigned PCP 08/17/19 10/04/19 Rafy Andrade MD [address] [place] [address] Assigned PCP 10/05/19 01/17/20 Mary Jain APRN SERVICE DESK ANALYST [address] [place] [address] Assigned PCP 01/18/20 05/29/20 Gavi Vega MD [facility] [place] [address] Ophthalmology 03/03/20 Gvai Vega MD [address] [place] [address] Assigned Surgical Provider 03/10/20 06/23/22 Laura Chong APRN SERVICE DESK ANALYST [address] [place] [address] Assigned PCP 06/27/20 Laura Chong APRN CNP [address] [place] [address] Assigned PCP 05/30/20 06/26/20 Rogelio Cramer DPM [address] [place] [address] Assigned Musculoskeletal Provider 02/27/21 08/18/22 Dat Zepeda MD [address] [address] Dermatology 01/13/22 11/21/23 Dat Zepeda MD [address] [address] Assigned Surgical Provider 06/24/22 Radha Jeter MD [address] [place] [address] Dermatology 08/30/23 Michael Martines MD [address] [place] [address] Dermatology 11/22/23 documented as of this encounter
--- OUTSIDE RECORDS SUMMARY | 2024-04-27 12:27 | XMS_ITS | Encounter Summary ---
Author Organization [facility] Address [address] [place] [address] Care Team Providers Care Rubber Stamps And Dies Supervisor Name Role Phone Maegan Izaguirre PA-C Primary Care Provider + Maegan Izaguirre PA-C Unavailable Maegan Izaguirre PA-C Unavailable [phone] Minnie Berry NP Unavailable [phone] Rafy Andrade MD Unavailable [phone] Mary Jain APRN SCHEDULE PLANNING MANAGER Unavailable AnthonyJennifer dial DO Unavailable Rafy Andrade MD Unavailable [phone] Mary Jain APRN, CNP Primary Care Provide r Mary Jain APRN SCHEDULE PLANNING MANAGER Unavailable Gavi Vega MD Unavailable + Gavi Vega MD Unavailable + Laura Chong APRN, CNP Primary Care Prov ider Laura Chong APRN SCHEDULE PLANNING MANAGER Unavailable + Laura Chong APRN SCHEDULE PLANNING MANAGER Unavailable + Rogelio CramerM Unavailable + Dat Zepeda MD Unavailable + Dat Zepeda MD Unavailable + Radha Jeter MD Unavailable Michael Martines MD Unavailable Encounter Details Date Type Department Care Team (Late st Contact Info) Description 02/13/[address] [phone] [facility] Social History Tobacco Use Types Packs/Day Years Used Date Smoking Tobacco: Never Smokeless Tobacco: Never Alcohol Use Standard Drinks/Week Comments Yes 0 (1 standard drink = 0.6 oz pur e alcohol) 9 glasses of wine per week Comments No Sex and Gender Information Value Date Recorded Sex Assigned at Female 03/08/2020 10:03 AM HEATING ELEMENT BUILDER Legal Sex Female 3:03 AM HEATING ELEMENT BUILDER Gender Identity Female 03/08/2020 10:03 AM HEATING ELEMENT BUILDER Sexual Orientation Choose not to disclose 2019 10:03 AM HEATING ELEMENT BUILDER documented as of this encounter Plan of Treatment Not on file documented as of this encounter Visit Diagnoses Not on filedocumented in this encounter Care Teams Rubber Stamps And Dies Supervisor Relationship Specialty Start Date End Date Maegan Izaguirre PA-C PCP - General 02/24/09 08/13/18 Maegan Izaguirre PA-C [address] [place] [address] PCP - Assigned PCP 10/18/09 06/18/18 Mary Jain APRN SCHEDULE PLANNING MANAGER [address] [place] [address] 741 [place] [address] PCP - General Nurse Practitioner 08/14/18 05/27/20 Laura Chong APRN SCHEDULE PLANNING MANAGER [address] [place] [address] PCP - General Internal Medicine 05/28/20 Maegan Izaguirre PA-C [address] [phone] Assigned PCP 01/18/12 08/16/19 Minnie Berry NP [address] [phone] Nurse Practitioner Family Practice 06/25/19 Rafy Andrade MD 420 [facility] 284 [place], [place] [address] Resident Primary Care - CC 06/25/19 Mary Jain APRN SCHEDULE PLANNING MANAGER 420 [facility] 741 [place] [address] Nurse Practitioner Nurse Practitioner 06/25/19 Jennifer Soares DO [address] [place] [address] Assigned PCP 08/17/19 10/04/19 Rafy Andrade MD 420 [facility] 284 [place] [address] Assigned PCP 10/05/19 01/17/20 Mary Jain ADDING MACHINE SERVICER SCHEDULE PLANNING MANAGER [address] [place] [address] 741 [place] [address] Assigned PCP 01/18/20 05/29/20 Gavi Vega MD [facility] [address] [address] Ophthalmology 03/03/20 Gavi Vega MD [address] [place] [address] [phone] Assigned Surgical Provider 03/10/20 06/23/22 Laura Chong APRN SCHEDULE PLANNING MANAGER [address] [place] [address] Assigned PCP 06/27/20 Laura Chong APRN SCHEDULE PLANNING MANAGER [address] [place] [address] [phone] Assigned PCP 05/30/20 06/26/20 Rogelio Cramer DPM [address] [place] [address] [phone] Assigned Musculoskeletal Provider 02/27/21 08/18/22 Dat Zepeda MD [address] [address] Dermatology 01/13/22 11/21/23 Dat Zepeda MD [address] [address] Assigned Surgical Provider 06/24/22 Radha Jeter MD [address] [place] [address] [phone] Dermatology 08/30/23 Michael Martines MD [address] [place] [address]76300 Dermatology 11/22/23 documented as of this encounter
--- OUTSIDE RECORDS SUMMARY | 2024-04-27 12:27 | XMS_ITS | Encounter Summary ---
Author Organization [facility] Address [address] [place] [address] Care Team Providers Care Welder Pipe Making Name Role Phone Maegan Izaguirre PA-C Primary Care Provider + Maegan Izaguirre PA-C Unavailable [phone] Maegan Izaguirre PA-C Unavailable Minnie Berry NP Unavailable [phone] Rafy Andrade MD Unavailable [phone] Mary Jain APRN BASKET BRAIDER Unavailable AnthonyJennifer dial DO Unavailable Rafy Andrade MD Unavailable [phone] Mary Jain APRN, CNP Primary Care Provide r Mary Jain APRN BASKET BRAIDER Unavailable Gavi Vega MD Unavailable + Gavi Vega MD Unavailable + Laura Chong APRN, CNP Primary Care Prov ider Laura Chong APRN BASKET BRAIDER Unavailable + Laura Chong Jade CASANOVA BASKET BRAIDER Unavailable + Kosta Crameron Aren DPM Unavailable + Dat Zepeda MD Unavailable + Dat Zepeda MD Unavailable + Radha Jeter MD Unavailable Michael Martines MD Unavailable Reason for Visit * Reason Onset Date Comments Refill Request 12/13/2011 Encounter Details Date Type Department Care Team (Late st Contact Info) Description 12/13/[address] [address] [facility] Refill Request Social History Tobacco Use Types Packs/Day Years Used Date Smoking Tobacco: Never Smokeless Tobacco: Never Alcohol Use Standard Drinks/Week Comments Yes 0 (1 standard drink = 0.6 oz pur e alcohol) 9 glasses of wine per week Comments No Sex and Gender Information Value Date Recorded Sex Assigned at Female 03/08/2020 10:03 AM FLOOR ATTENDANT Legal Sex Female 3:03 AM FLOOR ATTENDANT Gender Identity Female 03/08/2020 10:03 AM FLOOR ATTENDANT Sexual Orientation Choose not to disclose 2019 10:03 AM FLOOR ATTENDANT documented as of this encounter Miscellaneous Notes * Telephone Encounter - Key Headley - 12/13/2011 2:53 PM CDT See patient's MyChart response. Glo Headley, Reed Worker documented in this encounter Plan of Treatment Not on file documented as of this encounter Visit Diagnoses Not on filedocumented in this encounter Care Teams Welder Pipe Making Relationship Specialty Start Date End Date Maegan Izaguirre PA-C PCP - General 02/24/09 08/13/18 Maegan Izaguirre PA-C [address] [phone] PCP - Assigned PCP 10/18/09 06/18/18 Mary Jain APRN BASKET BRAIDER 420 [facility] [address]41 [place], [place] [address] PCP - General Nurse Practitioner 08/14/18 05/27/20 Laura Chong APRN BASKET BRAIDER [address] [place] [address] [phone] PCP - General Internal Medicine 05/28/20 Maegan Izaguirre PA-C [address] [phone] Assigned PCP 01/18/12 08/16/19 Minnie Berry NP [address] [phone] Nurse Practitioner Family Practice 06/25/19 Rafy Andrade MD 420 [facility] 284 [place] [address] Resident Primary Care - CC 06/25/19 Mary Jain APRN BASKET BRAIDER 420 [facility] [address] [place], [place] 8[address] Nurse Practitioner Nurse Practitioner 06/25/19 [place] [address] [place] [address] Assigned PCP 08/17/19 10/04/19 Rafy Andrade MD 420 [facility] 284 [place] [address] Assigned PCP 10/05/19 01/17/20 Mary Jain SCIENTIFIC DATABASE CURATOR BASKET BRAIDER 420 [facility] [address] [place] [address] Assigned PCP 01/18/20 05/29/20 Gavi Vega MD [address] [address] MD Neumann 03/03/20 Gavi Vega MD [address] [place] [address] Assigned Surgical Provider 03/10/20 06/23/22 Laura Chong APRN BASKET BRAIDER [address] [place] [address] [phone] Assigned PCP 06/27/20 Laura Chong APRN BASKET BRAIDER [address] [place] [address] Assigned PCP 05/30/20 06/26/20 Rogelio Cramer DPM [address] [place] [address] Assigned Musculoskeletal Provider 02/27/21 08/18/22 Dat Zepeda MD [address] [address] Dermatology 01/13/22 11/21/23 Dat Zepeda MD [address] [address] Assigned Surgical Provider 06/24/22 Radha Jeter MD [address] [place] [address] Dermatology 08/30/23 Michael Martines MD [address] [address] Dermatology 11/22/23 documented as of this encounter
[2024-04-27] MEDS: predniSONE 20 MG TABLET 60 MG PO (12:46)
== END 2024-04-27 13:57 | disposition home or self-care (01) ==
PROVIDERS: Emergency Provider Family Medicine
DX: M54.16 Radiculopathy, lumbar region (principal)
CPT/HCPCS: 72100; 96372; 96374; 99284; J1885; J2270; J7512